=== PATIENT | male | born 1955 | race Caucasian/White ===

== ENCOUNTER 2020-02-09 08:55 | Emergency (ER) | payer MEDICARE, OTHER ==
--- OUTSIDE RECORDS SUMMARY | 2020-02-09 08:57 | XMS REPORT | Clinical Summary ---
:1955 Author Organization [facility] Address [address] [place] [id number] Care Team Providers Name Role Phone MD Priti Primary Care Provider Allergies Active Allergy Reactions Severity Noted Date Comments Nsaids (Non-Steroidal 09/12/2016 On ant icoagulation--xarelto Anti-Inflammatory Drug) Medications Medication Sig Dispensed Refills Start Date End Date Status traZODone (DESYREL) 150 0 09/08/2016 Active MG tablet traMADol (ULTRAM) 50 mg 0 09/04/2016 Active tablet sodium chloride 0.9% for 0 08/31/2016 Active IRRIGATION (NS) 0.9 % irrigation sertraline (ZOLOFT) 100 0 09/08/2016 Active MG tablet ranitidine (ZANTAC) 150 0 06/10/2016 Active MG tablet omeprazole (PriLOSEC) 20 0 06/24/2016 Active MG capsule lisinopril 0 06/24/2016 Active (PRINIVIL,ZESTRIL) 40 mg tablet HYDROcodone-acetaminophe 0 09/09/2016 Active n (NORCO) 10-325 mg per tablet gentamicin (GARAMYCIN) 0 08/28/2016 Active 0.1 % ointment gabapentin (NEURONTIN) 0 06/24/2016 Active 600 mg tablet fluticasone (FLONASE) 50 0 08/11/2016 Active mcg/actuation nasal spray diazePAM (VALIUM) 5 MG 0 09/08/2016 Active tablet amphetamine-dextroamphet 0 09/08/2016 Active amine XR (ADDERALL XR) 30 MG 24 hr capsule rivaroxaban (XARELTO) 10 Take 10 mg by 0 Active mg tablet mouth daily. atorvastatin (LIPITOR) Take 20 mg by 0 Active 20 MG tablet mouth daily. LYRICA 75 mg capsule 0 09/20/2016 Active Active Problems Problem Noted Date Deep vein thrombosis (DVT) of distal vein of left lowe r extremity 09/27/2016 Anxiety Arthritis Depression HL (hearing loss) Hypertension Hyperlipidemia Allergic Visual impairment Family History Medical History Relation Name Comments No Known Problems Brother Other Mother Complications fr om sx- No Known Problems Son Relation Name Status Comments Brother Alive Father Alive Mother (Age 77) Son Alive Social History Tobacco Use Types Packs/Day Years Used Date Current Every Day Smoker 0.5 Smokeless Tobacco: Never Used Alcohol Use Drinks/Week oz/Week Comments No Sex Assigned at Date Recorded Not on file Job Start Date Occupation Industry Not on file Not on file Not on file Travel History Travel Start Travel End No recent travel history available. Last Filed Vital Signs Not on file Plan of Treatment Health Maintenance Due Date Last Done Comments COLONOSCOPY SCREENING 01/14/2006 SHINGLES VACCINES (#1) 01/14/2006 INFLUENZA VACCINE 03/12/2020 Results Not on fileafter 02/08/2019 Insurance Payer Benefit Plan / Subscriber ID Effective Dates Phone Addre ss Type Group MEDICARE MEDICARE PART A xxxxxxxxxx 2013-Present [facility] [place] Medicare AND B AARP AARP SUPPLEMENT xxxxxxxxxxx 2016-Present Commercial Advance Directives For more information, please contact: [phone] Type Date Recorded Patient Supervisor [employer] Explanati on Advance Directives, Living Will and Medical Power of Crew Foreman
--- OUTSIDE RECORDS SUMMARY | 2020-02-09 08:59 | XMS REPORT | Continuity of Care Document ---
:1955 Author Organization [email or web address] Care Team Providers Name Role Phone [email or web address] Unavailable Un available Problems Problem Status Onset Classification Date Comments Sourc e Date Reported RESCHEDULE Active [facility] 019 [facility] PAINFUL HARDWARE Active [address] M99.40 Active 017 [facility] AMP 4 WEEKS F/U Active [facility] IRR 017 AMP NEW EVAL Active [facility] 017 LEFT LEG Active [facility] INFECTION [address] [place] [address] LEFT LEG Active [facility] ANGIOGRAM [address] [place] [address] M25.572 - PAIN Active OP ID IN LEFT ANKLE 017 [place] AND JOINTS CERVICAL SPINE [place] 016 [facility] Methicillin Active Problem 06/29/2019 Left ankle draina ge - 06/21/11 [facility] resistant 012 Problem added by Dis cern Expert. Medical Staphylococcus Brittaney william aureus VITALY, (organism) PAT Arthur, PAT [facility] Alteration in Active Problem 06/29/2019 [place] comfort: pain Medica l (finding) Center, [facility], PAT Arthur, PAT [facility] Culture positive Active Problem 06/29/2019 2012 left an kle [facility] for methicillin Medi haresh resistant [place], Staphylococcus VITALY, aureus (finding) KATHLEEN Penny [facility] Deep venous Active Problem 06/29/2019 LEFT LEG DVT [facility] [place] thrombosis STILL THERE AND Med ical (disorder) RIGHT LEG DVT Brittaney williamMH STILL THERE PER TIRMaggie ,DREW PT PAT [facility] Depressive Active Problem 06/29/2019 [facility] disorder Medical (disorder) Center, [facility], PAT Arthur,MH PAT Andrade,[facility] Deep venous Active Problem 06/29/2019 [facility] thrombosis of Medica l lower extremity Cent er, (disorder) [facility], PAT Arthur[facility] [place] At risk for Active Problem 06/29/2019 [facility] falls (finding) [facility], [facility], PAT Arthur,[facility] [place],[facility] Fracture of bone Resolved Problem 06/29/2019 left leg [facility] (disorder) [facility], [facility] [place] Fracture of Resolved Problem 06/29/2019 [facility] cervical spine Medic al (disorder) [place], [facility] [place] Hypertensive Active Problem 06/29/2019 [facility] disorder, Medical systemic Center, arterial [facility], (disorder) PTA Arthur,[facility] Impaired Active Problem 06/29/2019 [facility] mobility Medical (finding) Center, [facility], PAT Arthur,[facility] Neuropathy Active Problem 06/29/2019 [facility] (disorder) [facility] Pain (finding) Active Problem 06/29/2019 [facility], [facility], PAT Arthur,[facility] [place] Rheumatoid Active Problem 06/29/2019 [facility] arthritis Medical (disorder) Center,[facility] [place],[facility] Systemic lupus Active Problem 06/29/2019 ANTICOAGULANT [facility] erythematosus LUPUS Medica l (disorder) [place], [facility] Smoker (finding) Active Problem 06/29/2019 [facility], [facility], PAT Arthur,[facility] FRACTURE OF Active [facility] UNSPECIFIED PART Med ical OF BODY OF Center PAIN IN Active [facility] UNSPECIFIED LIMB CONNECTIVE Active TISSUE STENOSIS [place] OF NEURAL CAN Medications Medication Details Route Status Patient Ordering Order Source Instructions Provider Date ceFAZolin (ANES) Route: IV, Inactive [facility] Drug form: 2019 Medical INJ, ONCE, Center Stop date: 03/21/19 9:29:00 CDT midazolam (ANES) Route: IV, Inactive [facility] Drug form: 2019 Medical SOLN, ONCE, Center Stop date: 03/21/19 9:14:00 CDT Sodium Chloride Route: IV, Inactive [place] 0.9% IV (ANES) 100 Drug form: 2018 Me dical mL + INJ, Start Center dexmedetomidine date: 03/21/19 (ANES) 200 8:45:00 CDT, microgram Stop date: 03/21/19 9:45:00 CDT Lactated Ringers Route: IV, Inactive [facility] Injection IV (ANES) Total Volume: 2019 Medical 1000 mL 1,000, Start Center date: 03/21/19 8:35:00 CDT, Stop date: 03/21/19 9:35:00 CDT Acetaminophen 325 1 tab, PO, Active [place] MG / Oxycodone Q6H, 0 2018 Medical Hydrochloride 2.5 Refill(s) Cent er MG Oral Tablet [Percocet 2.5/325] ceFAZolin + sterile Notes: (Same No Longer 03/21 [place] water 20 mL As: Ancef, Active 2018 Medical Kefzol) Center MEDICATION WASTE Product Size: 1000 mg Product Wasted: ___ mg pregabalin 75 MG 75 mg = 1 cap, Active [facility] Oral Capsule PO, BID, # 60 2016 [Lyrica] cap, 5 Refill(s) Acetaminophen Notes: Do not Inactive [place] exceed 4 2017 Hospital gm/day. (Same as: Tylenol) Ondansetron Notes: (Same Inactive Monik y as: Zofran) 2017 Hospital MEDICATION WASTE Product Size: 4 mg Product Wasted: ___ mg Sodium Chloride 500 mL, Rate: Inactive H Lina 0.154 MEQ/ML 50 ml/hr, [address] [place] [address] Injectable Solution Infuse over: 10 hr, Route: IV, Dosing Weight 87.727 kg, Total Volume: 500, Start date: 08/25/16 9:44:00 CDT, Duration: 1 day, Stop date: 08/26/16 9:43:00 CDT BD Normal Saline Notes: (Same Inactive M H Lina Flush as: BD 2017 Hospital Posiflush) Sodium Chloride 25 mL, Route: Inactive M H Lina 0.9% IV IV, Start 2017 Hospital date: 08/25/16 6:00:00 CDT, Duration: 30 day, Stop date: 09/24/16 5:59:00 CDT, PRN Line Flush Sertraline 100 MG 100 mg = 1 Active [place] Oral Tablet tab, PO, 2017 Hospital [Zoloft] Bedtime, # 30 tab, 0 Refill(s) Ranitidine 150 MG 150 mg = 1 Active [place] Oral Tablet tab, PO, BID, 2017 Hospit al # 60 tab, 0 Refill(s) omeprazole 40 mg 40 mg = 1 cap, Active [place] oral delayed PO, Daily, # 2017 Hospit al release capsule 30 cap, 0 Refill(s) atorvastatin 10 mg 10 mg = 1 tab, Active [place] oral tablet PO, Bedtime, 0 2017 Hospi sonal Refill(s) rivaroxaban 20 MG 20 mg = 1 tab, Active [place] Oral Tablet PO, Daily, # 2017 Hospita l [Xarelto] 30 tab, 3 Refill(s) tamsulosin 0.4 mg 0.4 mg = 1 Active [place] oral capsule cap, PO, After 2016 Medi haresh Breakfast, # Center 30 cap, 0 Refill(s) Gentamicin Sulfate 1 appl, TOP, Active Rudy (RETIREMENT) 0.001 MG/MG Daily, X 7 2016 Med ical Topical Ointment day, # 15 gm, C enter 0 Refill(s) cyclobenzaprine 10 10 mg = 1 tab, Active [place] mg oral tablet PO, BID, PRN 2016 Medi haresh Spasm, X 14 Center day, # 28 tab, 0 Refill(s) [place] Enema Extra 133 mL, Route: Inactive Rudy [place], Drug Form: 2016 Medical ELIF, Dosing Center Weight 100.455, kg, ONCE, Start date: 08/03/15 18:40:00, Stop date: 08/03/15 18:40:00 Fleet Enema 12 years, Inactive [facility] Pediatric 2016 Medical Dosing Center Fleet Enema 12 years, Inactive [facility] Pediatric 2016 Medical Dosing Center Riteshitusisak DM Notes: No Longer [place] (dextromethorp Active 2016 Medical rodriguez-guaifenesi Center n 10-100mg/5ml 10 ml oral SOLN ud) (Same as: Robitussin DM) Lidocaine 40 MG/ML Notes: (Same No Longer [place] Topical Cream as: Xylocaine) Active 2016 Med ical Center Acetaminophen 300 Notes: Do not No Longer [place] MG / Codeine exceed 4gm/day Active 2015 Medi haresh Phosphate 60 MG of Center Oral Tablet acetaminophen. [Tylenol with (Same as: Codeine #4] Tylenol with Codeine # 4) Flexeril Notes: (Same No Longer [place] As: Flexeril) Active 2016 Medical Center heparin sodium, Notes: porcine No Longer [place] porcine 2500 UNT/ML heparin Active 2015 Medi haresh Injectable Solution Cent er Gentamicin Sulfate Notes: (Same No Longer [place] (RETIREMENT) 0.001 MG/MG as: Garamycin) Active 2016 Medical Topical Ointment Center Morphine Notes: (Same Inactive [place] as:MORPhine 2015 Medical Sulfate) Center Acetaminophen Notes: Do not No Longer [place] exceed 4 Active 2016 Medical gm/day. (Same Center as: Tylenol) Naproxen Notes: (Same No Longer [place] as: Naprosyn) Active 2016 Medical Take with Center food. Lisinopril Notes: (Same Inactive [place] as: Prinivil, 2016 Medical Zestril) Center Morphine Notes: (Same No Longer [place] as:MORPhine Active 2015 Medical Sulfate) Center Protonix Notes: Tablet No Longer [place] should not be Active 2016 Medical chewed or Center crushed. (Same as: Protonix) Ancef + Sodium Notes: (Same No Longer [place] Chloride 0.9% IV As: Ancef, Active 2016 Medi haresh 100 mL Kefzol) Center Cefazolin FOR IV SET ONLY MEDICATION WASTE Product Size: 1000 mg Product Wasted: ___ mg Ondansetron Notes: (Same [place] Longer [place] as: Zofran) Active 2015 Medical MEDICATION Center WASTE Product Size: 4 mg Product Wasted: _0__ mg Hydromorphone 0.5 mg, Route: Inactive [place] IVP, Q5Min, 2016 Medical Dosing Weight Center 104.545, kg, PRN Pain Score 7-10, Start date: 07/29/15 15:32:00, Duration: 4 doses or times, Stop date: Limited # of times Naloxone Notes: Same as No Longer Abhay as Narcan Active 2015 [facility] Center Flumazenil Notes: (Same No Longer Abhay as as: Romazicon) Active 2015 [facility] Center Oxycodone Notes: (Same Inactive [place] Hydrochloride 1 as: 2016 Medical MG/ML Oral Solution 'Roxicodone) [place] Labetalol 10 mg, 2 mL, No Longer [place] Route: IVP, Active 2015 Medical Drug form: Center INJ, Q5Min, Dosing Weight 104.545, kg, PRN Elevated BP, Start date: 07/29/15 15:32:00, Duration: 5 doses or times, Stop date: 07/30/15 0:00:00 omeprazole 20 mg 20 mg = 1 cap, No Longer [place] oral delayed PO, Daily, # Active 2016 Medica l release capsule 90 tab, 0 Center Refill(s) Acetaminophen 300 1 tab, PO, Active [place] MG / Codeine BID, PRN Pain 2016 Medic al Phosphate 30 MG Center Oral Tablet tramadol 50 mg = 1 tab, Active [place] hydrochloride 50 MG PO, Q4H, PRN 2016 Medical Oral Tablet Pain, # 120 Center tab, 0 Refill(s) clopidogrel 75 MG 75 mg = 1 tab, Active [place] Oral Tablet PO, Daily, # 2016 Medical [Plavix] 90 tab, 0 Center Refill(s) Acetaminophen 325 1 tab, PO, No Longer H [place] MG / Hydrocodone BID, PRN for Active 2015 [place] dical Bitartrate 5 MG pain, 0 Center Oral Tablet [[place] Refill(s) 5/325] gabapentin 600 MG 600 mg = 1 Active [facility] Oral Tablet tab, PO, TID, 2016 Medica l # 270 tab, 0 Center Refill(s) lisinopril 40 mg 40 mg = 1 tab, Active [facility] oral tablet PO, Daily, # 2016 Medical 90 tab, 0 Center Refill(s) Cefazolin 1 gm, Route: Inactive [facility] IVPB, ONCE, 2016 Medical Dosing Weight Center 104.545, kg, Start date: 07/29/15 11:16:00, Duration: 1 doses or times, Stop date: 07/29/15 11:16:00, Surgical Prophylaxis Only; For patients < 120 kg Prinivil Notes: (Same No Longer [facility] as: Prinivil, Active 2015 Medical Zestril) Center Microzide Notes: (Same Inactive [facility] as: Microzide) 2016 Medical With food. Center influenza virus Notes: (Same No Longer [facility] vaccine, as: Fluzone Active 2015 [facility] inactivated Quadrivalent) Center For 3 years of age and older (0.5 mL IM) Shake well before use Hydrochlorothiazide 1 tab, Route: Inactive 07/29 [place] 12.5 MG / PO, Drug Form: 2015 Medical Lisinopril 20 MG TAB, Dosing Xiang ter Oral Tablet Weight 104.545, kg, Daily, Start date: 07/29/15 9:00:00, Duration: 30 day, Stop date: 08/27/15 9:00:00 pneumococcal Notes: (Same No Longer [place] capsular as: Pneumovax Active 2015 Medical polysaccharide type 23) Cent er 1 vaccine / Refrigerate pneumococcal capsular polysaccharide type 10A vaccine / pneumococcal capsular polysaccharide type 11A vaccine / pneumococcal capsular polysaccharide type 12F vaccine / pneumococcal capsular polysacchar 24 HR 25 mg, Route: Inactive [facility] Desvenlafaxine 50 PO, Drug form: 2015 Medical MG Extended Release ERTAB, Daily, Center Tablet [Pristiq] Dosing Weight 104.545, kg, Start date: 07/29/15 9:00:00, Duration: 30 day, Stop date: 08/27/15 9:00:00 Abilify 5 mg, Route: Inactive [place] PO, Drug form: 2015 Medical TAB, Daily, Center Dosing Weight 104.545, kg, Start date: 07/29/15 9:00:00, Duration: 30 day, Stop date: 08/27/15 9:00:00 Docusate Notes: (Same No Longer [place] as: Colace) Active 2015 Medical (Do Not Crush) Center POLYETHYLENE GLYCOL Notes: No Longer [place] 3350 Dissolve in 8 Active 2015 Medical oz of water or Center juice. (Same as: Miralax) Prilosec 20 mg, Route: Inactive [place] PO, Drug form: 2015 Medical DRC, Daily, Center Dosing Weight 104.545, kg, Start date: 07/29/15 9:00:00, Duration: 30 day, Stop date: 08/27/15 9:00:00 Flomax Notes: (Same No Longer [place] As: Flomax) Active 2015 Medical "Do Not Crush" Center Cefazolin 2 gm, Route: Inactive [place] IVPB, ONCE, 2016 Medical Dosing Weight Center 104.545, kg, Start date: 07/29/15 8:37:00, Duration: 1 doses or times, Stop date: 07/29/15 8:37:00, Surgical Prophylaxis Only; For patients < 120 kg heparin 5,000 unit, No Longer [place] Route: SUB-Q, Active 2015 Medical Q8H, Dosing Center Weight 104.545, kg, Start date: 07/29/15 8:00:00, Duration: 30 day, Stop date: 08/28/15 0:00:00 Acetaminophen Notes: Infuse Inactive [place] over 15 2016 Medical minutes Do Center not exceed 4gm/day of acetaminophen MEDICATION WASTE Product Size: 1000 mg Product Wasted: ___ mg Tramadol Notes: Not to [place] Longer [place] exceed Active 2015 Medical 400mg/day. Center (Same As: Ultram) gabapentin Notes: (Same No Longer Abhay as as: Neurontin) Active 2016 Medical Center Diphenhydramine Notes: (Same No Longer H [place] as: Benadryl) Active 2016 Medical Center Trazodone Notes: (Same No Longer [place] As: Desyrel) Active 2016 Medical Center Ondansetron Notes: (Same [place] Longer [place] as: Zofran) Active 2016 Medical MEDICATION Center WASTE Product Size: 4 mg Product Wasted: ___ mg Oxycodone Notes: (Same No Longer [place] Hydrochloride 5 MG as: Active 2015 Medic al Oral Tablet Roxicodone) Center Morphine Notes: (Same Inactive [place] as:MORPhine 2015 Medical Sulfate) Center Methocarbamol Notes: (Same No Longer [place] as:Robaxin) Active 2015 Medical Center Bisacodyl Notes: (Same No Longer [place] As: Dulcolax, Active 2015 [facility] Bisco-Lax) Center Isolyte S PH 7.4 Notes: (Same No Longer [place] 1,000 mL as: Isolyte S Active 2015 Medical PH 7.4) Center Acetaminophen 325 1 tab, Route: Inactive [place] MG / Hydrocodone PO, Drug Form: 2016 Medical Bitartrate 10 MG TAB, Dosing Xiang ter Oral Tablet [[place] Weight 10/325] 104.545, kg, ONCE, STAT, Start date: 07/28/15 23:17:00, Stop date: 07/28/15 23:17:00 Ativan Notes: (Same Inactive [place] as: Ativan) 2016 Medical Center Isolyte S PH-7.4 1,000 mL, Inactive [place] (Bolus) IV Route: IV, 2016 Medical Dosing Weight Center 104.545, kg, ONCE, Start date: 07/28/15 18:21:00, Stop date: 07/28/15 18:21:00 Ondansetron 4 mg, Route: Inactive Abhay as IVP, Drug 2015 Medical form: INJ, Center ONCE, Dosing Weight 104.545, kg, Priority: STAT, Start date: 07/28/15 18:21:00, Stop date: 07/28/15 18:21:00 Morphine 8 mg, Route: Inactive [place] IVP, ONCE, 2015 Medical Dosing Weight Center 104.545, kg, Priority: STAT, Start date: 07/28/15 18:21:00, Stop date: 07/28/15 18:21:00 Ondansetron 4 mg, Route: Inactive 07/28[facility] Abhay as IVP, Drug 2015 Medical form: INJ, Center ONCE, Dosing Weight 104.545, kg, Priority: STAT, Start date: 07/28/15 16:50:00, Stop date: 07/28/15 16:50:00 Morphine 4 mg, Route: Inactive [place] IVP, ONCE, 2015 Medical Dosing Weight Center 104.545, kg, Priority: STAT, Start date: 07/28/15 16:50:00, Stop date: 07/28/15 16:50:00 Isolyte S PH-7.4 1,000 mL, Inactive [place] (Bolus) IV Route: IV, 2015 Medical Dosing Weight Center 104.545, kg, ONCE, Start date: 07/28/15 16:41:00, Stop date: 07/28/15 16:41:00 Allergies, Adverse Reactions, Alerts Substance Category Reaction Severity Reaction Status Date Comments S ource type Reported NKFA Assertion Food Active KATHLEEN Penny allergy [place] No Known Assertion Drug OP ID Medication allergy Shahrzad and Allergies Immunizations Immunization Date Site Status Last Comments Source Given Updated pneumococcal [facility] 23-valent vaccine 6 deltoid Wa dical [place], VITALY, OP ID J[place], PAT Andrade,[facility] influenza virus Left completed [facility] [place] vaccine, [address] [facility] VITALY, OP ID Jerson, PAT Andrade,[facility] Results Order Name Results Value Reference Date Interpretation Comments Susie rce Range ELECTROLYTE AGAP 12.8 10.0 - 08/25 Lina S 20.0 Hospital ELECTROLYTE Chloride Lvl 104 95 - 109 08/25 Monik y S /2016 Hospital ELECTROLYTE Potassium Lvl 3.8 3.5 - 5.1 08/25 [facility] ELECTROLYTE Creatinine 0.92 0.50 - 08/25 Lina S Lvl 1.40 /2016 Hospital ELECTROLYTE Sodium Lvl 141 135 - 145 08/25 Hospital ELECTROLYTE Calcium Lvl 8.5 8.5 - 10.5 08/25 Hospital ELECTROLYTE CO2 28 24 - 32 08/25 Hospital ELECTROLYTE BUN 10 7 - 22 08/25 Hospital ELECTROLYTE Glucose Lvl 103 70 - 99 08/25 Hospital ELECTROLYTE eGFR 90 08/25 [facility] Comment: The Hospital eGFR is calculated using the CKD-EPI formula. In most young, healthy individuals the eGFR will be >90 mL/min/1.73m2 . The eGFR declines with age. An eGFR of 60-89 may be normal in some populations, particularly the elderly, for whom the CKD-EPI formula has not been extensively validated. Use of the eGFR is not recommended in the following populations:< br/>
Marcelina viduals with unstable creatinine concentration s, including patients and those with serious co-morbid conditions.<b r/>
Patie nts with extremes in muscle mass or diet.

The data above are obtained from the National Kidney Disease Education Program (NKDEP) which additionally recommends that when the eGFR is used in patients with extremes of body mass index for purposes of drug dosing, the eGFR should be multiplied by the estimated BMI. HEMATOLOGY Segs-Bands # 9.9 1.5 - 8.1 08/25 [facility] HEMATOLOGY Lymphocytes 6.9 20.0 - 08/25 Lina 40.0 [facility] HEMATOLOGY Segs 89.3 45.0 - 08/25 Lina 75.0 [facility] HEMATOLOGY Lymphocytes # 0.8 1.0 - 5.5 08/25 [facility] HEMATOLOGY Monocytes # 0.4 0.0 - 0.8 08/25 [facility] HEMATOLOGY Monocytes 3.3 2.0 - 12.0 08/25 Hospital HEMATOLOGY Eosinophils 0.1 0.0 - 4.0 08/25 [facility] HEMATOLOGY Basophils 0.4 0.0 - 1.0 08/25 Hospital HEMATOLOGY PT 14.8 12.0 - 08/25 MH Lina 14.7 /2016 Hospital HEMATOLOGY INR 1.14 0.85 - 08/25 Lina 1.17 Hospital HEMATOLOGY Platelet 174 133 - 450 08/25 Lina [facility] HEMATOLOGY RDW 16.1 11.5 - 08/25 Lina 14.5 /2016 Hospital HEMATOLOGY WBC 11.1 3.7 - 10.4 08/25 [facility] HEMATOLOGY MCHC 33.4 32.0 - 08/25 [place] 36.0 /2016 Hospital HEMATOLOGY MPV 7.2 7.4 - 10.4 08/25 Lina [facility] HEMATOLOGY Hgb 12.8 14.0 - 08/25 L[place] 18.0 /2016 Hospital HEMATOLOGY RBC 4.68 4.70 - 08/25 [facility] 6.10 Hospital HEMATOLOGY Hct 38.3 42.0 - 08/25 [facility] 54.0 Hospital HEMATOLOGY MCV 82.0 80.0 - 08/25 [facility] 94.0 Hospital HEMATOLOGY MCH 27.4 27.0 - 08/25 Lina 31.0 [facility] CHEM PANEL eGFR 100 08/01 Result Comment: The Medical eGFR is Center calculated using the CKD-EPI formula. In most young, healthy individuals the eGFR will be >90 mL/min/1.73m2 . The eGFR declines with age. An eGFR of 60-89 may be normal in some populations, particularly the elderly, for whom the CKD-EPI formula has not been extensively validated. Use of the eGFR is not recommended in the following populations:< br/>
Marcelina viduals with unstable creatinine concentration s, including patients and those with serious co-morbid conditions.<b r/>
Patie nts with extremes in muscle mass or diet.

The data above are obtained from the National Kidney Disease Education Program (NKDEP) which additionally recommends that when the eGFR is used in patients with extremes of body mass index for purposes of drug dosing, the eGFR should be multiplied by the estimated BMI. CHEM PANEL Calcium Lvl 9.3 8.5 - 10.5 08/01 [facility] CHEM PANEL BUN 17 7 - 22 08/01 [facility] CHEM PANEL Glucose Lvl 100 70 - 99 08/01 [facility] CHEM PANEL Creatinine 0.76 0.50 - 08/01 [place] Lvl 1.40 /2015 [facility] CHEM PANEL CO2 25 24 - 32 08/01 [facility] CHEM PANEL Potassium Lvl 4.0 3.5 - 5.1 08/01 [facility] CHEM PANEL Chloride Lvl 103 95 - 109 08/01 [facility] CHEM PANEL Sodium Lvl 139 135 - 145 08/01 [facility] CHEM PANEL AGAP 15.0 10.0 - 08/01 20.0 [facility] HEMATOLOGY Basophils 0.4 0.0 - 1.0 08/01 [facility] HEMATOLOGY Eosinophils 0.3 0.0 - 4.0 08/01 [facility] HEMATOLOGY Monocytes 12.1 2.0 - 12.0 08/01 [facility] HEMATOLOGY Lymphocytes 12.2 20.0 - 08/01 [place] 40.0 [facility] HEMATOLOGY Segs 75.0 45.0 - 08/01 [place] 75.0 [facility] HEMATOLOGY Monocytes # 1.4 0.0 - 0.8 08/01 [facility] HEMATOLOGY Lymphocytes # 1.4 1.0 - 5.5 08/01 [facility] HEMATOLOGY Segs-Bands # 8.6 1.5 - 8.1 08/01 [facility] HEMATOLOGY MCH 29.3 27.0 - 08/01 [place] 31.0 Medical [place] HEMATOLOGY MCHC 33.7 32.0 - 08/01 [place] 36.0 [facility] HEMATOLOGY MCV 87.0 80.0 - 08/01 [place] 94.0 [facility] HEMATOLOGY Hgb 12.4 14.0 - 08/01 [place] 18.0 [facility] Center HEMATOLOGY Hct 36.7 42.0 - 08/01 [place] 54.0 [facility] Center HEMATOLOGY WBC 11.5 3.7 - 10.4 08/01 [facility] HEMATOLOGY RBC 4.23 4.70 - 08/01 [place] 6.10 [facility] HEMATOLOGY MPV 9.0 7.4 - 10.4 08/01 [facility] HEMATOLOGY RDW 16.9 11.5 - 08/01 [place] 14.5 /2016 [facility] HEMATOLOGY Platelet 154 133 - 450 08/01 [facility] HEMATOLOGY Segs-Bands # 10.2 1.5 - 8.1 07/30 Abhay as /2015 [facility] HEMATOLOGY Lymphocytes # 0.6 1.0 - 5.5 07/30 [place] /2015 [facility] HEMATOLOGY Monocytes # 1.3 0.0 - 0.8 07/30 [place] /2015 [facility] HEMATOLOGY Basophils 0.3 0.0 - 1.0 07/30 [facility] HEMATOLOGY Monocytes 10.8 2.0 - 12.0 07/30 [facility] HEMATOLOGY Segs 84.2 45.0 - 07/30 [place] 75.0 /2015 [facility] HEMATOLOGY Lymphocytes 4.7 20.0 - 07/30 [place] 40.0 /2015 [facility] HEMATOLOGY MCH 29.1 27.0 - 07/30 [place] 31.0 [facility] HEMATOLOGY Hct 41.6 42.0 - 07/30 [place] 54.0 /2015 [facility] [facility] HEMATOLOGY Hgb 14.0 14.0 - 07/30 [place] 18.0 /2015 [facility] HEMATOLOGY MCV 86.2 80.0 - 07/30 [place] 94.0 [facility] HEMATOLOGY RBC 4.82 4.70 - 07/30 [place] 6.10 /2015 [facility] HEMATOLOGY WBC 12.2 3.7 - 10.4 07/30 [facility] HEMATOLOGY MPV 8.4 7.4 - 10.4 07/30 [facility] HEMATOLOGY MCHC 33.7 32.0 - 07/30 [place] 36.0 /2015 [facility] HEMATOLOGY Platelet 168 133 - 450 07/30 [facility] HEMATOLOGY RDW 17.1 11.5 - 07/30 [place] 14.5 /2015 [facility] HEMATOLOGY PT 13.6 12.0 - 07/29 [place] 14.7 [facility] HEMATOLOGY INR 1.01 0.85 - 07/29 [place] 1. [facility] BLOOD BANK Antibody Scrn Negative 07/29 [facility] as RESULTS (07/29/15 3:36 AM) /2015 [facility] BLOOD BANK ABO/Rh O NEG 07/29 [place] RESULTS /2015 [facility] CHEM PANEL Magnesium Lvl 1.9 1.8 - 2.4 07/29 [facility] CHEM PANEL Phosphorus 3.5 2.5 - 4.5 07/29 [facility] CHEM PANEL eGFR 97 07/29 Result Comment: The Medical eGFR is Center calculated using the CKD-EPI formula. In most young, healthy individuals the eGFR will be >90 mL/min/1.73m2 . The eGFR declines with age. An eGFR of 60-89 may be normal in some populations, particularly the elderly, for whom the CKD-EPI formula has not been extensively validated. Use of the eGFR is not recommended in the following populations:< br/>
Marcelina viduals with unstable creatinine concentration s, including patients and those with serious co-morbid conditions.<b r/>
Patie nts with extremes in muscle mass or diet.

The data above are obtained from the National Kidney Disease Education Program (NKDEP) which additionally recommends that when the eGFR is used in patients with extremes of body mass index for purposes of drug dosing, the eGFR should be multiplied by the estimated BMI. CHEM PANEL AGAP 11.2 10.0 - 07/29 [facility] 20.0 [facility] CHEM PANEL Chloride Lvl 104 95 - 109 07/29 [facility] CHEM PANEL CO2 26 24 - 32 07/29 [facility]2015 [facility] CHEM PANEL Calcium Lvl 9.0 8.5 - 10.5 07/29 [facility] CHEM PANEL Glucose Lvl 80 70 - 99 07/29 [facility] CHEM PANEL BUN 13 7 - 22 07/29 [facility] CHEM PANEL Potassium Lvl 4.2 3.5 - 5.1 07/29 [facility] CHEM PANEL Sodium Lvl 137 135 - 145 07/29 [facility]2015 [facility] CHEM PANEL Creatinine 0.82 0.50 - 07/29 [facility] Lvl 1.40 [facility] HEMATOLOGY Eosinophils # 0.1 0.0 - 0.5 07/29 [facility] HEMATOLOGY Monocytes # 0.7 0.0 - 0.8 07/29 [facility] HEMATOLOGY Lymphocytes # 1.9 1.0 - 5.5 07/29 [facility] HEMATOLOGY Eosinophils 0.9 0.0 - 4.0 07[place] [facility] HEMATOLOGY Monocytes 8.4 2.0 - 12.0 07/29 [place] [facility] HEMATOLOGY Lymphocytes 22.9 20.0 - 07/29 [place] 40.0 /2015 [facility] HEMATOLOGY Segs 66.7 45.0 - 07/29 [place] 75.0 /2015 [facility] HEMATOLOGY Basophils # 0.1 0.0 - 0.2 07/29 [place] [facility] HEMATOLOGY Segs-Bands # 5.4 1.5 - 8.1 07/29 [facility] /2015 [facility] HEMATOLOGY Basophils 1.1 0.0 - 1.0 07/29 /2015 [facility] HEMATOLOGY MCV 87.4 80.0 - 07/29 [place] 94.0 /2015 [facility] HEMATOLOGY Hct 45.4 42.0 - 07/29 [place] 54.0 /2015 [facility] HEMATOLOGY MCH 29.2 27.0 - 07/29 [place] 31.0 /2015 [facility] HEMATOLOGY MCHC 33.4 32.0 - 07/29 [place] 36.0 /2015 [facility] HEMATOLOGY RBC 5.20 4.70 - 07/29 [place] 6.10 /2015 [facility] HEMATOLOGY Hgb 15.2 14.0 - 07/29 [place] 18.0 /2015 [facility] HEMATOLOGY Platelet 199 133 - 450 07/29 [facility] HEMATOLOGY RDW 17.5 11.5 - 07/29 [place] 14.5 /2015 [facility] HEMATOLOGY MPV 8.6 7.4 - 10.4 07/29 [facility] HEMATOLOGY WBC 8.1 3.7 - 10.4 07/29 [place] [facility] URINE AND UA Leuk Est Negative Negative 07/29 [facility] STOOL (07/28/15 7:32 PM) /2015 [facility] URINE AND UA Nitrite Negative Negative 07/29 [facility] STOOL (07/28/15 7:32 PM) /2015 [facility] URINE AND UA 0.2 0.1 - 1.0 07/29 [facility] STOOL Urobilinogen /2015 [facility] URINE AND UA Blood Negative Negative 07/29 [facility] STOOL (07/28/15 7:32 PM) /2015 [facility] URINE AND UA Bili Negative Negative 07/29 [facility] STOOL *NA* /2015 Medical (2/16/16 7:32 PM) [place] URINE AND UA Ketones Negative Negative 07/29 [facility] STOOL *NA* [facility] (07/28/15 7:32 PM) [place] URINE AND UA Protein Negative Negative 07/29 [facility] (07/28/15 7:32 PM) [facility] URINE AND UA Glucose Negative Negative 07/29 [facility] (07/28/15 7:32 PM) [facility] URINE AND UA Color Yellow Yellow 07/29 [facility] *NA* /2015 [facility] (07/28/15 7:32 PM) [place] URINE AND UA Spec Grav 1.023 <=1.030 07/29 [facility] /2015 [facility] URINE AND UA Turbidity Clear Clear 07/29 [facility] (07/28/15 7:32 PM) [facility] URINE AND UA pH 5.5 5.0 - 8.0 07/29 [facility] /2015 [facility] URINE AND UA Bacteria None Seen None Seen 07/29 [facility] STOOL (07/28/15 7:32 PM) [facility] URINE AND UA Mucus None Seen None Seen 07/29 [facility] (07/28/15 7:32 PM) [facility] URINE AND UA WBC None Seen None Seen 07/29 [facility] (07/28/15 7:32 PM) [facility] URINE AND UA RBC None Seen 0 - 2 07/29 [facility] (07/28/15 7:32 PM) [facility] URINE AND UA Sq Epi None Seen Few 07/29 [facility] (07/28/15 7:32 PM) [facility] CHEM PANEL eGFR 82 07/28 [facility] Comment: The Medical eGFR is Center calculated using the CKD-EPI formula. In most young, healthy individuals the eGFR will be >90 mL/min/1.73m2 . The eGFR declines with age. An eGFR of 60-89 may be normal in some populations, particularly the elderly, for whom the CKD-EPI formula has not been extensively validated. Use of the eGFR is not recommended in the following populations:< br/>
Marcelina viduals with unstable creatinine concentration s, including patients and those with serious co-morbid conditions.<b r/>
Patie nts with extremes in muscle mass or diet.

The data above are obtained from the National Kidney Disease Education Program (NKDEP) which additionally recommends that when the eGFR is used in patients with extremes of body mass index for purposes of drug dosing, the eGFR should be multiplied by the estimated BMI. CHEM PANEL Calcium Lvl 9.6 8.5 - 10.5 07/28 [facility] CHEM PANEL Sodium Lvl 137 135 - 145 07/28 [facility] CHEM PANEL Potassium Lvl 4.2 3.5 - 5.1 07/28 [facility] CHEM PANEL Chloride Lvl 103 95 - 109 07/28 [facility] CHEM PANEL CO2 29 24 - 32 07/28 [facility]2015 [facility] CHEM PANEL BUN 18 7 - 22 07/28 [facility]2015 [facility] CHEM PANEL Glucose Lvl 86 70 - 99 07/28 [facility]2015 [facility] CHEM PANEL Creatinine 1.00 0.50 - 07/28 [facility] Lvl 1.40 [facility] CHEM PANEL AGAP 9.2 10.0 - 07/28 [facility] 20.0 [facility] HEMATOLOGY R-time 0.7 0.4 - 0.7 07/28 [facility] HEMATOLOGY [place] 0.6 07/28 [facility]2015 [facility] HEMATOLOGY K-time 1.1 0.6 - 2.3 07/[address] HEMATOLOGY Rapid TEG Cit[place] Whole Blood 07/28 [facility] Sample Type (07/28/15 5:00 PM) /2015 [facility] HEMATOLOGY Angle 77 64 - 80 07/28 [facility] HEMATOLOGY ACT (TEG) 113 86 - 118 07/28 [facility] HEMATOLOGY Max Amp 73 52 - 71 07/28 [facility]2015 [facility] HEMATOLOGY G-value 13.3 5.0 - 11.6 07/28 [facility]2015 [facility] HEMATOLOGY Estimated % 0.1 0.0 - 7.5 07/28 [facility] HEMATOLOGY Basophils # 0.1 0.0 - 0.2 07/28 [facility] HEMATOLOGY Eosinophils # 0.1 0.0 - 0.5 07/28 [facility] HEMATOLOGY Eosinophils 1.6 0.0 - 4.0 07/28 [place] [facility] Reports No Data Provided for This Section Diagnostic Reports Report Value Date Source Spine cervical wo Radiation Dose CTDIVOL = 0 (mGy): DLP = 421.52 (mGy-cm) 06/27/[address] PROCEDURE INFORMATION: Exam: CT Cervical Spine Without Contrast Exam date and time: 06/27/2019 11:48 AM Age: 64 years old Clinical indication: Cervica l disc disorder with radiculopathy, cervicothoracic region; Additional info: /m50.13 cervical disc d isorder with radiculopathy, cervicothoracic region TECHNIQUE: Imaging protocol: Computed tomography images of the cervical spine without contrast. Total DLP: 421.52 mGy-cm Radiation optimization: All CT scans at this facility use at least one of these dose optimization techniques: automated exposure control; mA and/or kV adjustment per patient size (includes targeted e xams where dose is matched to clinical indication); or iterative reconstructio n. COMPARISON: SPINE CERVICAL WO CONTRAST CT 02/14/2017 and 07/28 FINDINGS: Vertebrae: No acute fracture or aggressive osseo us lesion. Chronic faint fracture through the right articular pillar at C 7 (series 300, image 29). Laminectomy from C3 through C6 and posterior fus ion using lateral mass/transpedicular screws and parallel rods at C3, C4, C5, C6, and T1. The hardware is in satisfactory position, without si gns of loosening or fracture. Minimal 2.5 mm anterolisthesis of C6 on C7, unch anged. Overall unchanged alignment. Spinal canal: No spinal canal stenosis. Soft tissues: No prevertebral or paravertebral s oft tissue swelling. No fluid collection in eminectomy defect. Lungs: Lung apices are clear. IMPRESSION: No acute findings or change in the appearance of the cervical spine compared to the CT performed on 02/14/2017. Laminectomy from C3 through C6 and and p osterior fusion from C3 through T1, as above. Rivas Moise MD On 06/27/2019 15:38:47; VR-STEVEN [id number] Spine cervical 2 or 3 PROCEDURE INFORMATION: 06/27/2019 DREW Andrade view DX Exam: XR Cervical Spine, 4 or 5 Views Exam date and time: 06/27/2019 10:55 AM Age: 64 years old Clinical indication: Cervica l disc disorder with radiculopathy, cervicothoracic region; Additional info: /m50.13 cervical disc d isorder with radiculopathy TECHNIQUE: Imaging protocol: XR of the cervical spine, 4 or 5 views. Other technique: AP Lateral and flexion extensio n views COMPARISON: CR SPINE CERVICAL SERIES DX 02/10/2017 12:45 PM SPINE CERVICAL WO CONTRAST CT 06/27/2019 11:48:10 AM FINDINGS: Vertebrae: Postsurgical beach ges are present relating to posterior decompression and fusion of C3-T1 with parallel of rods and la teral mass screws. Hardware appears intact without evidence of failu re or loosening. Cervical alignment is within normal limits. No significant spondylolis thesis or abnormal motion between flexion and extension. Vertebral body he ights are maintained. Soft tissues: Unremarkable. Notes: If there is further concern or neurologic al abnormalities on clinical exam, MRI or CT of the cervi haresh spine may be performed for complete assessment. IMPRESSION: Postsurgical changes in the cervical spine without significant interval change. Harry Barney MD On 06/27/2019 17:03:35; [id number] Brain wo contrast MRI PROCEDURE INFORMATION: 04/15/2019 PAT Andrade Exam: MR Head Without Contrast Exam date and time: 04/15/2019 6:44 PM Clinical history: 64 years old, male; Paresthesi a of skin; Additional info: R20.2 paresthesia of skin/r20.2 paresthesia of s kin TECHNIQUE: Imaging protocol: MR of the head without contras t. 3D rendering: MIP reconstructed images were cresara daly and reviewed. COMPARISON: No relevant prior studies available. FINDINGS: Brain: The brain parenchyma is unremarkable for age.Mild generalized volume loss. Mild T2 signal abnormalities in the suprat entorial white matter suggestive of chronic small vessel ischemic changes. The sow white interfaces are maintained. There is no acute infarct, hemor rhage, mass, edema, midline shift or herniation. The posterior fossa and mid line structures are unremarkable. Incidentally noted small left fro ntal developmental venous angioma, normal variant. Ventricles: No ventriculomegaly. Bones/joints: Partially visualized surgical beach ges in the cervical spine. Soft tissues: Unremarkable. Sinuses: Normal as visualized. Mastoid air cells: Normal as visualized. No mast oid effusion. Orbits: Unremarkable. Other vasculature: Central intracranial flow voi ds are maintained. IMPRESSION: No acute intracranial process. Mild age-related volume loss and chronic small vessel ischemic changes. Partially visua lized surgical changes in the cervical spine. Coleen Howard MD On 04/16/2019 09:50 :47; [id number] Spine cervical wo Patient Name: PRICE SANDHU 09/24/2018 PAT [place] contrast MRI : 1955; Age: 63 years y/o Male MR: [id number] Study: Spine cervical wo contrast MRI 09/24/2018 9:56 CDT Ordering Physician: Fabio Dickerson MD Clinical Indication: - G95.9 Disease of spina l cord, unspecified; Comparison: 02/10/2017 and 07/28/2015 TECHNIQUE: Multiplanar nonco ntrast magnetic resonance imaging of the cervical spine is performed. FINDINGS: The alignment is stable comp ared to prior study from 2017. There is 2 mm retrolisthesis at C3-C4 and 4 mm retrolisthesis at C6-C7. There has been posterior decompression and posterior fusion from C3 to C6. No recurrent spinal benito l stenosis. At C6-C7, there is moderate facet arthrosis and 4 mm anterolisthesis. There may be moderate foraminal stenosis although assessment is limited due to artifacts. At the other levels, the foramina appear unremarka ble. There is stable signal abnor mality in the cervical cord at C3-C4 level with mild cord thinning, this is suggestive of myelomalacia. Mild degenerative changes in the visualized thor acic spine. The paravertebral soft tissues are unremarkable. IMPRESSION: Status post C3-C6 posterior decompression and posterior fusion with maintained alignment and no recurrent canal stenosis. Stable grade 1 anterolisthes is at C6-C7 with suspected mild to moderate foraminal stenosis. Stable myelomalacia at C3-C4. 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 NES638.25mGycm. ADDITIONAL INFORMATION and CT DLP: 344.25 mGy-cm . COMPARISON: MRI cervical spine of 02/10/2017. TECHNIQUE: Volumetric CT ac quisition of the cervical spine without contrast. Axial, sagittal and coronal reconstructions. IV contrast: None. FINDINGS: No definite acute fracture i s present. Prevertebral soft tissues are within normal limits. The odontoid and lateral masses are grossly anatomic. Postoperative laminectomies and posterior cervical spinal fusion are present from about C3-T1 causing streak artifact. Mild grade 1 about 2.1 mm anterolisthesis of C6 on C7. No gross significant cervica l spinal stenosis detected. Please refer to recent MRI cervical spine report for better evaluation and complete details. Enlarged heterogeneous thyro id with left lobe calcification. Emphysematous changes are present within the apices with biapical pleural thickening and subjacent pleural parenchymal scarring. IMPRESSION: 1. No acute cervical fracture detected. 2. Postoperative laminectomi es and posterior cervical spinal fusion are present from about C3-T1 causing streak artifact. Mild grade 1 about 2.1 mm anterolisthesis of C6 on C7. No gross significant cerv ical spinal stenosis detecte d. Please refer to recent MRI cervical spine report for better evaluation and complete details. 3. Enlarged heterogeneous thyroid with left lobe calcification. 4. Emphysematous changes are present within the apices with biapical pleural thickening and subjacent pleural parenchymal scarring. SL: [id number] Spine cervical series Patient Name: PRICE SANDHU 2016 DREW Andrade DX : 1955; Age: 62 years Male MR: [id number] Study: Spine cervical series DX 02/10/2017 11:56 A M CDT CLINICAL INDICATION: - Conn ective tissue stenosis of neural canal of head region COMPARISON: Cervical spine radiograph on 016 FINDINGS: Views and laterality: Cervical spine 5 views Status post posterior fusion of C3-T1. The hardware appears in unchanged alignment without significant loosening. No acute fracture. Mild grade 1 retrolisthesis of C3 on C4 and C4 on C5. No significant change in alignment on the f lexion or extension views. Mild disc space narrowing and posterior disc osteophytes from C3 through C7. No prevertebral soft tissue thickening. The visualized apices are clear. IMPRESSION: Status post posterior fusion of C3-T1. SL: [id number] Spine Thoracic wo Clinical Indication: Spinal canal stenosis 06/2016 PAT Andrade contrast MRI Comparison: None. TECHNIQUE: Multiplanar T1, T 2, STIR weighted noncontrast MRI of the thoracic spine is performed on the 1.5 Francoise magnet. Full and complete MRI thoracic spine without gadolinium contrast exam was performed. FINDINGS: ALIGNMENT AND GENERAL SURVEY : There is normal alignment of the thoracic spine. The bone marrow is normal for the patient's age. There are no fractures or compression deformities. SPINAL CORD: The thoracic sp ine spinal cord is normal in size and signal. The CSF space is unremarkable. The conus medullaris ends at the L1 level. DISK SPACES: There is disc d esiccation at multiple levels.. A small disc bulge is noted at T6-T7 without significant spinal canal stenosis or foraminal narrowing. No significant central or foraminal stenosis. IMPRESSION: No fracture or subluxation. No significant spinal canal stenosis or foraminal narrowing. No evidence of cord compression. SL: [id number] Spine cervical wo Clinical Indication: Spinal canal stenosis 06/2016 [facility] [place] contrast MRI Comparison: Magnetic resonance imaging dated TECHNIQUE: Multiplanar T1, T 2, and STIR weighted MRI of the cervical spine is performed. Full and complete MRI cervical spine without gadolinium contrast exam was performed. Imaging was performed. FINDINGS: There is cervical lordosis. The vertebral body heights are maintained. There is grade 1 anterolisthesis of C6/C7. The patient is status post laminectomy at C3-C6. The bone marrow signal is wi thin normal limits. There is no prevertebral soft tissue swelling or signal abnormality. The bilateral vertebral artery flow voids are visualized. The right vertebral artery is hypoplastic. The cervicomedullary junctio n is unremarkable. There is a 4 mm focus of T2 hyperintensity in the cord at C3-C4 level which may represent residual myelopathy. At C2-C3 there is a mild dis c bulge without significant spinal canal stenosis or foraminal narrowing. At C3-C4 there is a disc ost eophyte complex without significant spinal canal stenosis. There is mild bilateral neural foraminal narrowing. At C4-C5, there is no disc h erniation, spinal canal stenosis or foraminal narrowing. At C5-C6 there is no disc he rniation, spinal canal stenosis or foraminal narrowing. At C6-C7 there is a mild dis c bulge without significant spinal canal stenosis. There is mild bilateral neural foraminal narrowing. At C7-T1 there is no signifi cant disc herniation, spinal canal stenosis or foraminal narrowing. Impression: No significant s mahogany canal stenosis in the cervical spine. No evidence of cord compression. Small focal area of T2 hyperintensity in the cord at C3-C4 level may represent residual myelopathy. Postsurgical changes at C3-C6. Grade 1 anterolisthesis of C6/C7. SL: [id number] Knee 1-2 Views EXAM: XR LEFT KNEE ONE VIEW 10/13/2016 [facility] unilateral DX DATE: 10/13/2016 10:43 AM CDT Cent er INDICATION: POST OP - ALIGNMENT COMPARISON: 08/05/2011 and 08/05/2016 TECHNIQUE: AP and lateral radiographs of the kn ee FINDINGS: Single intraopera tive radiograph demonstrates interval resection through the proximal tibial and fibular shafts with interconnecting single cortical screw and bone harvest graft at the resection margins. A drain and skin mayra are in place about the operative bed with expected soft tissue swelling and small amounts of subcutaneous emphysema. Degenerative changes of the knee and tibiofibula r joints are noted. IMPRESSION: Single intraope rative radiograph demonstrating expected appearances following resection through the proximal left tibial/fibular shafts reinforced with bone graft and cortical screw. Ankle w/wo contrast EXAM: MR LEFT ANKLE WITH INTRAVENOUS CONTRAS T 08/05/2016 [facility] MRI DATE: 08/05/2016 4:09 PM [employer] INDICATION: Pain, Trauma COMPARISON: 08/05/2011 TECHNIQUE: Multiplanar multi sequence imaging of the ankle with and without contrast. IV contrast: 18 mL of Dotarem. FINDINGS: Ligaments: Lateral: AITFL and PITFL: The anterio r inferior tibiofibular and posterior inferior tibiofibular ligaments are intact. ATFL: The anterior talofibular ligament is intac t. CFL: The calcaneofibular ligament is intact. PTFL: The posterior talofibular ligament is inta ct. Medial: Deltoid: The superficial and deep deltoid complex ligaments are within normal limits. Tendons: Anterior: The anterior tibia lis, extensor hallucis longus and extensor digitorum longus are intact. Medial: The posterior tibial is, flexor digitorum longus and flexor hallucis longus are intact. Lateral: The peroneus longus and brevis are inta ct. Achilles: Intact. Plantar fascia: Within normal limits Muscles: No signal abnormality in the muscles. Cartilage: No focal defect. Bone: No suspicious marrow signal seen to suggest acute osteomyelitis. Metallic artifact from the internally fixated distal tibial and fibular fractures. Bony synostosis of the distal tibia and fibula. No acute fracture identified. Soft tissues: Well-perfused soft tissue graft seen anterior to the distal tibia. There is an approximately 1.6 cm soft tissue ulcer seen superficial to the lateral malleolus (series 16 image 44). No fo haresh fluid collections or abn ormal soft tissue enhancement. Diffuse nonspecific mild subcutaneous edema. No abnormality of the visualized neurovascular structures. Tarsal tunnel and sinus tarsi within normal limits. IMPRESSION: 1. 1.6 cm lateral malleolus soft tissue ulceration without underlying osteomyelitis. 2. No abnormal enhancement or focal fluid collec tions. Spine thoracic 3 views EXAM: XR CERVICAL SPINE 4 VIEWS 6 [facility] [place] [facility] EXAM: XR THORACIC SPINE 2 VIEWS Center DATE: 07/29/2015 2:02 PM [employer] INDICATION: Pain Post Trauma COMPARISON: CT of the cervical and thoracic spin e 07/28/2015 TECHNIQUE: AP, lateral, ope n-mouth odontoid, and swimmer's views of the cervical spine. AP and lateral views of the thoracic spine. DISCUSSION: Cervical spine: There has be en interval placement of posterior fusion rods from C3 to T1, with lateral mass screws at all levels except C7. There is no perihardware lucency or evidence of failure. The f ractures described on CT are not evident on this study. Degenerative changes including formation of small anterior and posterior vertebral body osteophytes at multiple levels and mild disc height loss a t C3-C4 are noted. No prever tebral or paraspinous soft tissue abnormality is identified. Thoracic spine: Minimal thor acolumbar dextroscoliosis, possibly positional in nature. The vertebral body heights and disc spaces are overall preserved. No acute fracture is identified, although there is a mild compression deformit y of the L2 superior endplate which appears chronic. Surgical clips projecting ov er the upper thoracic spine correlate with right axillary clips on a comparison chest radiograph. An IVC filter is noted. IMPRESSION: 1. Interval posterior spina l fusion from C3 to T1 without evidence of complication. 2. The previously identifie d fractures are not well demonstrated radiographically. Spine cervical 2 or 3 EXAM: XR CERVICAL SPINE 4 VIEWS 07/30/2015 [facility] Medical view DX EXAM: XR THORACIC SPINE 2 VIEWS Center DATE: 07/29/2015 2:02 PM [employer] INDICATION: Pain Post Trauma COMPARISON: CT of the cervical and thoracic spin e 07/28/2015 TECHNIQUE: AP, lateral, ope n-mouth odontoid, and swimmer's views of the cervical spine. AP and lateral views of the thoracic spine. DISCUSSION: Cervical spine: There has be en interval placement of posterior fusion rods from C3 to T1, with lateral mass screws at all levels except C7. There is no perihardware lucency or evidence of failure. The f ractures described on CT are not evident on this study. Degenerative changes including formation of small anterior and posterior vertebral body osteophytes at multiple levels and mild disc height loss a t C3-C4 are noted. No prever tebral or paraspinous soft tissue abnormality is identified. Thoracic spine: Minimal thor acolumbar dextroscoliosis, possibly positional in nature. The vertebral body heights and disc spaces are overall preserved. No acute fracture is identified, although there is a mild compression deformit y of the L2 superior endplate which appears chronic. Surgical clips projecting ov er the upper thoracic spine correlate with right axillary clips on a comparison chest radiograph. An IVC filter is noted. IMPRESSION: 1. Interval posterior spina l fusion from C3 to T1 without evidence of complication. 2. The previously identifie d fractures are not well demonstrated radiographically. Chest 1view DX EXAM: XR CHEST 1 VIEW 07/29/2015 [facility] edical DATE: 07/28/2015 11:34 PM [employer] Xiang [address] INDICATION: Abnormal chest sounds COMPARISON: X-ray chest 07/24/2015 TECHNIQUE: AP chest FINDINGS: Left lung base sub segmental atelectasis/scarring is present, otherwise no focal consolidation or pleural effusion is identified. The cardiomediastinal silhouette is normal for technique. Descending aortic calcifications noted. No acute bony abnormality is identified. Remote bilateral rib fractures are again seen. Surgical mayra overlie the right chest wall. Oval metallic density overlying the upper thoracic spine has change d position since the prior exam and probably is extrinsic. IMPRESSION: Left lung base subsegmental atelectasis/scarring, otherwise no acute abnormality in the chest. Spine cervical wo EXAM: MRI CERVICAL SPINE WITHOUT CONTRAST 07/13 [facility] contrast MRI DATE: 07/28/2015 6:48 PM [employer] IN[employer] Cent er INDICATION: Pain with radiculopathy COMPARISON: CT C-spine, 07/28/2015 TECHNIQUE: Multiplanar, mult isequence noncontrast MR imaging of the cervical spine. Multiple sequences are limited by motion. IV contrast: None. FINDINGS: Vertebra: There is exaggerated lordosi s of the lower cervical spine. Mild bone marrow edema is present in the anterior C3 vertebral body inferiorly and in the right posterior C7 facet and lamina, at the levels of the previously described C3 and C7 fractures. Spinal canal and cord: Minim al degenerative retrolisthesis of C3 on C4 with a pseudobulge of subluxation and a superimposed small midline protrusion associated with bone spur formation. 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 Paraspinal soft tissues: Normal. IMPRESSION: 1. Cord compression with co rd edema due to spinal canal stenosis from C3 to C7. Per clinical progress note, the spine team is aware of the findings. 2. Bone marrow edema at C3 and C7 associated with the previously described fractures. Spine thoracic wo EXAM: CT THORACIC SPINE WITHOUT CONTRAST 07/28 [facility] contrast CT (ER) DATE: 07/28/2015 6:48 PM [employer] Xiang [address] INDICATION: Pain Post Trauma COMPARISON: None TECHNIQUE: Volumetric acqui sition of the thoracic spine without contrast. Axial, sagittal and coronal reconstructions. IV contrast: None. FINDINGS: There is no fracture or samir lignment of the thoracic spine. There are moderate degenerative changes with small anterior osteophytes and facet arthropathy in the mid thoracic spine. Again seen are minimally dis placed comminuted right C7 transverse process fracture and mildly displaced right C7 axial oblique intra-articular fracture the superior inferior facets with exten elvi into a coronally orientated lamina fracture . Mild right greater than left emphysematous changes are seen at the upper lungs. There is mild left base scarring bilaterally. IMPRESSION: No fracture or malalignment of the t horacic spine. Spine lumbar wo EXAM: CT LUMBAR SPINE WITHOUT CONTRAST 6 [facility] Medical contrast CT (ER) DATE: 07/28/2015 6:48 PM [employer] X[place] [address] INDICATION: Pain Post Trauma COMPARISON: None TECHNIQUE: Volumetric acqui sition of the lumbar spine without contrast. Axial, sagittal and coronal reconstructions. IV contrast: None. FINDINGS: No fracture, malal ignment or other acute bony abnormality is identified. No soft tissue abnormality is identified. There are moderate degenerative changes with joint space narrowing and small anterior osteophytes throug hout the lumbar spine. There is a L5-S1 anterior spinal fusion. There is joint space narrowing with near fusion of the anterior bilateral SI joints. Note is made of abdominal aortic calcification and IVC filter. IMPRESSION: 1. No fracture or malalignment of the lumbar spi ne. 2. Bilateral anterior SI quirino nt space fusion is likely due to ankylosing spondylitis. Spine cervical wo EXAM: CT CERVICAL SPINE WITHOUT CONTRAST 07/28 [facility] contrast CT (ER) DATE: 07/28/2015 5:42 PM CR[employer]INAL [employer] IN[employer] Xiang ter INDICATION: Pain, Trauma COMPARISON: CT cervical spine 07/28/2015 at 1733 hours TECHNIQUE: Volumetric acqui sition of the cervical spine without contrast. Axial, sagittal and coronal reconstructions. Examination was repeated due to poor image quality from outside study. IV contrast: None. FINDINGS: The spine is imaged from the skull bas e to the level of T3. There is a mildly displaced intra-articular fracture of the right C7 vertebrae the superior and inferior facets with extension into the lamina. There is no cervical malalignment. There is a m ildly displaced comminuted f racture of the right C7 transverse process. There is a mildly displaced C3 anterior/inferior corner fracture. Small anterior osteophytes a nd mild disc space narrowing is seen between C3-C7. There is bilateral apical sc arring. Multiple blebs are seen at the left lung apex. IMPRESSION: 1. Mildly displaced intra-ar ticular fracture of the right C7 vertebrae the superior and inferior facets extending into the lamina. 2. Mildly displaced, fracture of the right C7 tr ansverse process. 3. Mildly displaced C3 anter ior-inferior corner fracture (Hyperextension teardrop). Consultation Notes No Data Provided for This Section Discharge Summaries No Data Provided for This Section History and Physicals No Data Provided for This Section Vital Signs Vital Sign Value Date Comments Source Respitory Rate 22 03/21/2019 [facility] Systolic (mm Hg) 135 03/21/2019 [facility] Diastolic (mm Hg) 69 03/21/2019 [facility] Respitory Rate 23 03/21/2019 [facility] Systolic (mm Hg) 137 03/21/2019 [facility] Me dical Center Diastolic (mm Hg) 65 03/21/2019 [facility] edical Center Respitory Rate 16 03/21/2019 [facility] Center Systolic (mm Hg) 138 03/21/2019 [facility] Me dical Center Diastolic (mm Hg) 77 03/21/2019 [facility] edical Center Height 195.58 cm 03/21/2019 [facility] Weight 84.091 03/21/2019 [facility] BMI Calculated 21.98 03/21/2019 [facility] Center Heart Rate 64 03/21/2019 [facility] BMI Calculated 25.22 09/20/2016 [facility] Weight 89.091 09/20/2016 [facility] Height 187.96 cm 09/20/2016 [facility] Temperature Oral (F) 98.3 F 09/20/2016 [facility] Respitory Rate 20 09/20/2016 [facility] Heart Rate 92 09/20/2016 [facility] Systolic (mm Hg) 130 09/20/2016 [facility] Diastolic (mm Hg) 79 09/20/2016 [facility] Systolic (mm Hg) 134 08/25/2016 [facility] Diastolic (mm Hg) 78 08/25/2016 [facility] Respitory Rate 15 08/25/2016 [facility] Systolic (mm Hg) 111 08/25/2016 [facility] Diastolic (mm Hg) 76 08/25/2016 [facility] Respitory Rate 20 08/25/2016 [facility] Systolic (mm Hg) 120 08/25/2016 [facility] Diastolic (mm Hg) 79 08/25/2016 [facility] Respitory Rate 14 08/25/2016 [facility] Heart Rate 71 08/25/2016 [facility] Weight 87.727 08/24/2016 [facility] Height 193.04 cm 08/24/2016 [facility] BMI Calculated 23.54 08/24/2016 [facility] Heart Rate 80 08[facility]06[facility] Resp[facility] 20 [facility] Systolic (mm Hg) 122 08/06/2015 [facility] Diastolic (mm Hg) 79 08/06/2015 [facility] Temperature Oral (F) 98.2 F 08/06/2015 [facility] Systolic (mm Hg) 125 08/06/2015 [facility] dical Center Diastolic (mm Hg) 82 08/06/2015 [facility] Respitory Rate 18 08/06/2015 [facility] Temperature Oral (F) 97.7 F 08/06/2015 [facility] Heart Rate 71 08/06/2015 [facility] Respitory Rate 18 08/06/2015 [facility] Heart Rate 69 08/06/2015 [facility] Temperature Oral (F) 97.5 F 08/06/2015 [facility] Systolic (mm Hg) 106 08/06/2015 [facility] dical Center Diastolic (mm Hg) 72 08/06/2015 [facility] Weight 100.455 08/01/2015 [facility] Height 193.04 cm 07/29/2015 [facility] BMI Calculated 28.05 07/29/2015 [facility] Weight 104.545 07/29/2015 [facility] Weight 104.545 07/28/2015 [facility] Center Height 193.04 cm 07/28/2015 [facility] BMI Calculated 28.05 07/28/2015 [facility] Encounters Location Location Encounter Encounter Reason Attending ADM DC Stat us Source Details Type Number For Provider Date Date Visit [facility] [id number] Jhonathan 07/28 08/06 [facility] Jerson Gee Jr /2015 [facility] Outpt Diag [id number] Corwin 08/05 08/06 [facility] Frank /2016 [facility] Day Surgery [id number] Hector 08/25 08/25 Lina Alaniz /2016 [facility] [id number] [facility] Outpt Diag [id number] Sergio Chong 02/10 02/11 [facility] [place] [facility] Outpatient [id number] Sergio Chong 02/14 02/15 Jerson /2016 [facility] Surgery [id number] Arnaldo 06/15 06/15 [facility] Achor /2018 [facility] Outpt Diag [id number] Fabio 09/24 09/25 [facility] Prasarn /2018 [place] [facility] Surgery [id number] Arnaldo 03/21 03/22 [facility] Achor /2018 [facility] Outpt Diag [id number] Shahin 04/16 04/16 [facility] Shirzadi /2018 [facility] Outpt Diag [id number] Sergio Chong 06/27 06/28 [facility] /2019 [facility] Procedures Procedure Code Date Perfomer Comments Source IVC - Insertion of [id number] 06/12/2010 Abhay as inferior vena caval Medic al filter Center, PAT Andrade,[facility] Ankle joint [id number] 2010mulitiple [facility] operations<sup>1, surgeries Medical 2</sup> Center, PAT Andrade,[facility] Arthroscopy of knee [id number] [facility], [facility], PAT Andrade,[facility] Fusion<sup>3</sup> [id number] cervical [facility] as Medical Center, PAT And[place],[facility] Lumbar and [id number] [facility] lumbosacral fusion Medica l by anterior Center, technique [facility], PAT [place], PAT Andrade,[facility] ORIF - Open [id number] wrist [facility] reduction and [facility] internal fixation Center, PAT [place],[facility] fracture<sup>4</sup [place] > Tonsillectomy [id number] [facility], [facility], PAT And[place],[facility] Ankle joint [id number] mulitiple [facility], operations<sup>1</s surgeries [facility] up> Fusion<sup>2</sup> [id number] cervical [facility] ORIF - Open [id number] wrist [facility], reduction and [facility] internal fixation of fracture<sup>3</sup > Assessment and Plan Assessment and Plan Date Source Extracted from:Title: Hospitalist Progress Note 08/06/2015 [facility] Author: Jhonathan Soni MD Date: 08/05/15 Assessment/Plan 1.Central cord syndrome of cervical spi nal cord Status post PSIF C3-T1, POD 7, Continue pain control and PT 2.C6-7 cervical fracture Status post open fracture treatme nt on 07/29 3.HTN (hypertension) Well controlled on present regimen 4.GERD (gastroesophageal reflux disease) Continue PPI 5.H/o Right leg DVT, over 3 years prior 6.Chronic cutaneous venous stasis ulcer to LLE Continue lo haresh wound care 8.History of BPH Tamsulosin Orders: MD to Nurse Order, Misc MD to Nurse Order, [facility] MSG Change Admitting MD Prophylaxis Disposition Patient will need to follow up with Dr. Reyes in clinic 3 weeks post-op (~08/18), please call [phone] for appointment. Pending inpatient rehabilitation. [facility] Hospitalist is primary. Page [phone] with questions. 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 Site Date Left ankle drainage - 06/21/11 Isolation Required: CONTACT Before isolation precautions may be disc ontinued for this hospital visit, the following protocol must be followed and Infection Control should be notified: Patient must be off antibiotics for 72 hours or 7 days if on dialysis and vancomycin. Send one MRSA PCR nares specimen. Please place order for MRSA PCR. Do not order MRSA Culture. If MRSA PCR is negative, isolation may be discontinued. Patient can only be cleared from isolati on for this visit. If readmitted, patient must be isolated and screened for MRSA again. Consult Infection Control for suggested regimens for decolonization of p atients with MRSA as well as for any que stions. We can be reached at [phone]. Extracted from:Title: Hospitalist History and Physical Author: Liliana Sandra MD Date: 07/29/15 Assessment/Plan Mr. Sandhu is a 60 year old man with P MHx of HTN, GERD, BPH, chronic venous stasis ulcer to LLE, and recent fall susutaining C6-7 fracture who presents with right sided neck pain, numbness/tingling to bilateral UE and headache, concern for development of centr al cord syndrome. 1.Central cord syndrome of cervical spi nal cord Multi-level cervical stenosis s/p fall, ORS Spine consulted - Per ORS- keep flat or HOB 30 degrees , c spine precautions, avoid hyperextension of C spine, [place] at all times - Pending OR at this time with ORS Spi ne, NPO and IVF at this time with chemoppx held - Multi-modal pain therapy with BM regimen and can titrate as needed. 2.C6-7 cervical fracture See above, [place] at all times 3.HTN (hypertension) BP mildly elevate d likely 2/2 pain at this time, cont on home meds and cont to work on pain control 4.GERD (gastroesophageal reflux disease) Cont on PPI if ne eded 5.H/o Right leg DVT, over 3 years prior No need for any anticoagulation at this time, no concerning exam findings and per EMR likely provoked due to prior surgery with debilitated state 6.Chronic cutaneous venous stasis ulcer to LLE Pt with ulcer on exam and skin changes, reports some pain and has been seeing outpatient wound care. Wound care consulted at this time. 7.Preoperative clearance Patient has no minor CAD predictor(s) including: advanced age, abnormal EKG, uncontrolled systolic hypertension, and a rhythm other than sinus Patient has no significant clinical ri sk factor(s) including: history of ischemic heart disease, compensated or prior heart failure, cerebrovascular disease, diabetes mellitus, and renal insufficiency The patients METS are: < 4, related to chronic pain from L ankle s/p prior surgeries EKG: NSR The surgery specific risk is: Intermediate Recommendation: No further medical wor kup prior to surgery. Patient is a low cardiovascular risk for a intermediate surgical procedure. 8.History of BPH Cont on home tamsulosin Psych: Pt home meds indicative of anxiety and possible bipolar? Will need to re- clarify with patient given he does not give this history when talking with him. Prophylaxis Held pending OR- chemoppx once cleared by ORS Spine Disposition Pending OR with ORS Spine [facility] Hospitalists are primary for this p atient, please page [phone] with questions. Plan of Care No Data Provided for This Section Social History Social History Date Source Social History TypeResponse 10/13/2016 [facility] [place] Alcohol Never, Previous treatment: None. Substance Abuse Use: None. Smoking Status Current every day smoker; Type: Cigarett es; Ready to change: Yes; Exposure to Tobacco Smoke None; Cigarette Smoking Last 365 Days Yes; Reg Smoking Cessation Counseling Yes entered on: 03/21/19 Social History TypeResponse 10/13/2016 [facility] Alcohol Never, Previous treatment: None. Substance Abuse Use: None. Smoking Status Current every day smoker; Type: Cigarett es; Ready to change: Yes; Exposure to Tobacco Smoke None; Cigarette Smoking Last 365 Days Yes; Reg Smoking Cessation Counseling Yes entered on: 03/21/19 Social History TypeResponse 10/11/2016 [facility] Substance Abuse Use: None. Alcohol Never, Previous treatment: None. Smoking Status Current every day smoker; Type: Cigarett es; Tobacco use per day: 1; Previous treatment: None; Ready to change: Yes; Concerns about tobacco use in household: No; Lives with someone who smokes; Cigarette Smoking Last 365 Days Yes; Reg Smoking Cessation Counseling Yes Social History TypeResponse 08/24/2016 [facility] Substance Abuse Use: None. Alcohol Never Smoking Status Current every day smoker; Ready to cummings e: Yes; Exposure to Tobacco Smoke None; Cigarette Smoking Last 365 Days Yes; Reg Smoking Cessation Counseling Yes Social History TypeResponse 08/24/2016 [facility] Substance Abuse Use: None. Alcohol Never Smoking Status Current every day smoker; Ready to cummings e: No; Concerns about tobacco use in household: No; Exposure to Tobacco Smoke None; Cigarette Smoking Last 365 Days Yes; Reg Smoking Cessation Counseling No Social History TypeResponse 07/28/2015 [facility] Smoking Status Current every day smoker; Exposure to To bacco Smoke None; Cigarette Smoking Last 365 Days Yes; Reg Smoking Cessation Counseling Yes Family History No Data Provided for This Section Advance Directives No Data Provided for This Section Functional Status No Data Provided for This Section
--- OUTSIDE RECORDS SUMMARY | 2020-02-09 08:59 | XMS REPORT | Continuity of Care Document ---
:1955 Author Organization [facility] t Address [address] [place] [address] Care Team Providers Name Role Phone LYNNE Attending Clinician Unavailable Castillo Attending Clinician Unavailable ALIDA Attending Clinician Unavailable CARLOS Attending Clinician Unavailable NORTH Attending Clinician Unavailable VASCULAR Attending Clinician Unavailable KALEIGH Attending Clinician Unavailable CELIA Attending Clinician Unavailable Problems Condition Condition Condition Status Onset Resolution Last Treating Co mments Source Name Details Category Date Date Treatment Clinician Date History of History of Problem Resolve Univers essential essential d ity of hypertens[place]ens[place] on on Physici ans Status Status Problem Active Univers post post ity of cervical cervical [place] spinal spinal Physici arthrodesi arthrodesi an s s s Cervical Cervical Problem Active Unive rs myelopathy myelopathy it y of [place] Physici ans Left Left Problem Active Univers lateral lateral ity of ankle pain ankle pain [place] ans Pain, Pain, Problem Active Univers foot, foot, ity of chronic, chronic, [place] left left Physici ans Acute left Acute left Problem Active U nivers ankle pain ankle pain it y of [place] Physici ans Open Open Problem Active Univers fracture fracture ity of of medial of medial [place] malleolus malleolus Phys ici of left of left ans ankle, ankle, type I or type I or II, II, initial initial encounter encounter Open Open Problem Active Univers displaced displaced ity of pilon pilon [place] fracture fracture Physic i of left of left ans tibia tibia Painful Painful Problem Active Univers orthopaedi orthopaedi it y of c hardware c hardware [place] ans Left knee Left knee Problem Active Uni vers pain pain ity of [place] Physici ans Venous Venous Problem Active Univers ulcer ulcer ity of [place] Physici ans Amputation Amputation Problem Active U nivers of leg of leg ity of below below [place] knee, knee, Physici left, left, ans traumatic traumatic Allergies, Adverse Reactions, Alerts Allergy Allergy Status Severity Reaction(s) Onset Inactive Treating Comm ents Source Name Type Date Date Clinician Ibuprofe Allergy Active Univers n TABS to drug ity of (finding [place] ) Physici ans Social History Smoking Status Start Date Stop Date Source Occasional tobacco smoker [facility] Physicians (finding) Medications Ordered Filled Start Stop Current Ordering Indication Dosage Frequency Signature Comments Components Source Medication Medication Date Date Medication? Clinician (SIG) Name Name Vitamin D3 Vitamin D3 Yes GLADYS Take one Univers 1.25 MG 1.25 MG 5-26 [place] tablet it y of (27873 [place]) ([address]77 [place]) 00:00: weekly [place] Oral Oral 00 Physici Capsule Capsule ans Lyrica 25 Lyrica 25 Yes Arnaldo 1 Q0.3333D TAKE 1 Univers MG Oral MG Oral 1-03 Achor M.D. CAPSULE 3 ity of Capsule Capsule 00:00: TIMES [place] 00 DAILY Physici ans traMADol traMADol 2010-06 Yes GLADYS TAKE 1 U nivers HCl - 50 MG HCl - 50 MG 1-07 [place] TABLET ity of Oral Tablet Oral Tablet 00:00: EVERY 6 [place] 00 HOURS Physici NEEDED. ans HYDROcodone HYDROcodone 2010-06 Yes GLADYS TAKE 1 Univers -Acetaminop -Acetaminop 1-07 [place] TABLET ity of hen 10-325 hen 10-325 00:00: EVERY 4 [place] MG Oral MG Oral 00 HOURS Physi ci Tablet Tablet NEEDED FOR ans PAIN. Procedures Procedure Date / Time Performed Performing Clinician [facility] e MRI Spine cervical wo 2018-08-15 00:00:00 [facility] contrast [id number] Physicians [U] XRAY BONE LENGTH 2018-05-28 00:00:00 [facility] STUDY-SCANOGRAM [id number] Physicians [U] XRAY KNEE 1 OR 2 2018-05-28 00:00:00 [id number]U] XRAY KNEE 1 OR 2 2018-05-25 00:00:00 [facility] [id number] Physicians [U] XRAY KNEE 1 OR 2 2017-10-13 00:00:00 [facility] [id number] Physicians [U] XRAY KNEE 1 OR 2 2017-09-29 00:00:00 [facility] [id number] Physicians [U] XRAY KNEE 1 OR 2 2017-07-10 00:00:00 [facility] of [place] VWS LEFT [id number] Physicians [U] XRAY KNEE 1 OR 2 2017-07-04 00:00:00 [facility] [place] VWS LEFT 08469 Physicians History of Ankle [facility] Physicians Plan of Care Planned Activity Planned Date Details Comments Source Diagnostic Test 2018-06-25 [U] XRAY KNEE 1 [facility] y of [place] Pending 00:00:00 OR 2 VWS LEFT Physicians [id number] [code = [id number]] Encounters Start End Encounter Admission Attending Care Care Encounter Source Date/Time Date/Time Type Type Clinicians Facility Department ID 2019-04-01 2019-04-01 NAKUL Iyer [facility] [id number] Univers 12:45:00 12:45:00 t; GLADYS BATSITA PA ity of [place] Physici ans 2019-04-01 2019-04-01 NAKUL Iyer UTP [id number] Univers 11:00:00 11:00:00 t; GLADYS [place] PA ity of [place] Physici ans 2019-03-21 2019-03-21 AppointNAKUL Heredia UTP [id number] Univers 07:00:00 07:00:00 t; Arnaldo Chong ity of [place], M.D. [place] M.D. Physici ans 2019-03-21 2019-03-21 AppointNAKUL Heredia UTP [id number] Univers 07:00:00 07:00:00 t; Arnaldo Chong ity of [place], M.D. [place] M.D. Physici ans 2019-03-21 2019-03-21 Outpatient [facility] [id number] [facility] 06:00:00 06:00:00 2019-02-25 2019-02-25 AppointNAKUL Dong UTP [id number] Univers 10:15:00 10:15:00 t; GLADYS [place] PA ity of [place] Physici ans 2018-08-15 2018-08-15 NAKUL [facility] [id number] Univers 14:00:00 14:00:00 t; Tess CADENA at [facility] xi Rudy Medina M.D. Physi ci ans 2018-05-28 2018-05-28 Appointmen LYNNE [facility] Orthopedics [id number] Univers 11:45:00 11:45:00 t; GLADYS [place] PA ity of [place] Physici ans 2018-04-30 2018-04-30 Appointalexi [place] [facility] Orthopedics [id number] Univers 11:00:00 11:00:00 t; GLADYS [place] PA ity of [place] Physici ans 2017-10-16 [facility] Orthopedics [id number] Univers 09:30:00 09:30:00 t; GLADYS [place] PA ity of [place] Physici ans 2017-10-09 2017-10-09 [facility] Orthopedics [id number] Univers 10:45:00 10:45:00 t; GLADYS [place] PA ity of [place] Physici ans 2017-07-10 2017-07-10 Appointmen LYNNE [facility] [id number] Univers 10:45:00 10:45:00 t; GLADYS [place] ity of [place] [facility] [address] Physici ans 2017-04-17 2017-04-17 Appointmen LYNNE [facility] [id number] Univers 09:30:00 09:30:00 t; GLADYS [place] PA ity of [place] Physici ans 2017-01-27 2017-01-27 Appointmen LYNNE [facility] [id number] Univers 12:00:00 12:00:00 t; GLADYS [place] PA ity of [place] Physici ans 2017-01-20 2017-01-20 Appointmen LYNNE [facility] [id number] Univers 11:30:00 11:30:00 t; GLADYS [place] PA ity of [place] Physici ans 2016-11-21 2016-11-21 Appointmen LYNNE [facility] [id number] Univers 10:30:00 10:30:00 t; GLADYS [place] PA ity of [place] Physici ans 2016-11-04 2016-11-04 Appointmen LYNNE [facility] [id number] Univers 10:30:00 10:30:00 t; GLADYS [place] PA ity of [place] Physici ans 2016-10-26 2016-10-26 Appointmen CARLOS, UTP UTP [id number] Univers 10:30:00 10:30:00 t; JOHANA GONZALEZ i ty of DANIELLE, M.D. [facility] Physici ans 2016-10-25 2016-10-25 Appointmen LYNNE, UTP UTP [id number] Univers 10:00:00 10:00:00 t; GLADYS [place] PA ity of [place] Physici ans 2016-10-13 2016-10-13 Appointmen Castillo, UTP UTP [id number] Univers 08:00:00 08:00:00 t; Arnaldo Chong ity of [place], M.D. [facility] Physici ans 2016-09-20 2016-09-20 Appointmen GONZALEZ, UTP UTP [id number] Univers 11:00:00 11:00:00 t; JOHANA GONZALEZ i ty of DANIELLE, M.D. [facility] ans 2016-09-09 2016-09-09 Appointmen LYNNE, UTP UTP [id number] Univers 12:30:00 12:30:00 t; GLADYS [place] PA ity of GLADYS [facility] Physici ans 2016-08-25 2016-08-25 Appointmen NORTH, UTP UTP [id number] Univers 12:00:00 12:00:00 t; DIAMANTE KAT ity of [place], M.D. [facility] ans 2016-08-23 2016-08-23 Appointmen VASCULAR, UTP UTP [id number] Univers 10:00:00 10:00:00 t; [facility] christi brooks VASCULAR, [facility] Physici ans 2016-08-23 2016-08-23 Appointmen NORTH, UTP UTP [id number] Univers 10:00:00 10:00:00 t; DIAMANTE KAT ity of [place], M.D. [facility] ans 2016-08-15 2016-08-15 Appointmen KALEIGH, UTP UTP [id number] Univers 16:00:00 16:00:00 t; christi PEDROZA M.D. [place] PEDROZA M.D. ans 2016-08-01 2016[facility] KALEIGH, NAKUL UTP [id number] Univers 14:45:00 14:45:00 t; christi PEDROZA M.D. [place] PEDROZA M.D. ans 2016-07-14 2016-07-[facility] CELIA, NAKUL UTP [id number] Univers 12:45:00 12:45:00 t; ELVI YANG ity of [place] Екатерина Physici ans 2016-03-01 2016-03-[facility] CELIA, NAKUL UTP [id number] Univers 12:45:00 12:45:00 t; ELVI YANG ity of [place] Екатерина Physici ans 2016-01-20 2016-01-[facility] CELIA, NAKUL UTP [id number] Univers 12:50:00 12:50:00 t; ELVI YANG ity of [place] Екатерина Physici ans 2016-01-19 2016-01-[facility] CELIA, NAKUL UTP [id number] Univers 11:50:00 11:50:00 t; ELVI YANG ity of [place] Екатерина Physici ans 2016-01-19 2016-01-[facility] CELIA, NAKUL UTP [id number] Univers 11:45:00 11:45:00 t; ELVI YANG ity of [place] Екатерина Physici ans 2015-10-20 2015-10-[facility] CELIA, NAKUL UTP [id number] Univers 11:50:00 11:50:00 t; ELVI YANG ity of [place] Екатерина Physici ans 2015-09-08 2015-09-[facility] CELIA, NAKUL UTP [id number] Univers 11:50:00 11:50:00 t; ELVI YANG ity of [place] M.D. [place], M.D. Physici ans 2015-08-18 2015-08-18 Appointmen NAKUL YANG [facility] [id number] Univers 12:40:00 12:40:00 t; ELVI YANG ity of [place] M.D. [place], M.D. Physici ans Results Test Description Test Time Test Comments Results Result Sour e Comments [U] XRAY KNEE 1 2018-04-30 Images Universit y of [place] 2 VWS LEFT 11:32:00 acquired, not [place] [id number] reported on Physicians this accession number.
[2020-02-09] MEDS ORDERED: FENTANYL CITR 100 MCG/2 ML ONE (09:51)
[2020-02-09] MEDS ORDERED: HYDROMORPHONE HCL 2 MG/ML inj ONE (10:30)
[2020-02-09] MEDS ORDERED: ONDANSETRON 4 MG/2 ML VIAL ONE (10:30)
--- NOTE | 2020-02-09 11:01 | RAD REPORT ---
EXAM DESCRIPTION: CT - Thoracic Spine W/o Cont - 02/09/2020 10:41 am CLINICAL HISTORY: Fall, persistent neck, chest and spine pain, history of fracture with hardware placement COMPARISON: No remote imaging adequately evaluating the thoracic spine TECHNIQUE: Axial 3 mm thick images of the thoracic spine were obtained with sagittal and coronal rec onstruction images generated and reviewed. All CT scans are performed using dose optimization technique as appropriate and may include automated exposure control or mA/KV adjustment according to patient size. FINDINGS: Approximately 30% wedge compression deformity is present in the T4 body. No paraspinal mas s or hematoma. No acute fracture lines are identifiable. This is probably chronic. Posterior wall hei ght is maintained. Remaining thoracic vertebrae show normal height. No subluxation abnormality. There is right convex cu rvature spanning the thoracic spine. Degenerative gas is seen at multiple disc levels. Endplate spurr ing changes are relatively mild. Prominent calcification of the posterior longitudinal ligament seen at the T5-6 level. This does not cause spinal stenosis. No pathologic bone process. Rib fracture findings are separately detailed CT chest report. Central canal detail is inherently limited on CT imaging. IMPRESSION: T4 30% wedge compression deformity with posterior wall height preserved. Findings favor this to be chronic. There are no prior studies that allow evaluation of the T4 body. Remainder the thoracic spine shows degenerative disc and endplate changes. No acute findings identifi ed.
--- NOTE | 2020-02-09 11:06 | RAD REPORT ---
EXAM DESCRIPTION: CT - C Spine Wo Con - 02/09/2020 10:41 am CLINICAL HISTORY: Fall, head and neck injury persistent neck pain, prior surgery with fusion hardwar e COMPARISON: CT cervical spine July 2015 TECHNIQUE: Axial 2 mm thick images of the cervical spine were obtained with sagittal and coronal rec onstruction images generated and reviewed. All CT scans are performed using dose optimization technique as appropriate and may include automated exposure control or mA/KV adjustment according to patient size. FINDINGS: Transverse fracture is present through the base of the dens. Fracture line sharply demarca addy with no cortical margin or remodeling changes. Acute fracture is suspected. There is no distracti on or angulation. Cervical bodies are normal in height. Slight anterior subluxation of C6 from degene rative change. This is stable. Mild disc space narrowing throughout the cervical spine. No other frac ture. No pathologic bone process. Since prior imaging patient has undergone posterior decompression w ith hardware placement. Posterior decompression involves C3-C6. Additional hardware is extends to the T1 level. No fracture of hardware. Hardware appears to maintain normal positioning. Inherent central canal limitations are further limited by the metal spray artifact of the fixation hardware across th e facet joints. No paraspinal mass or hematoma. IMPRESSION: Acute transverse fracture through the base of the dens. No displacement or subluxation a bnormalities. No other acute bone finding. The fusion hardware in the posterior elements spanning C3-T1 show no fra cture changes. Hardware appears to be normally positioned.
--- NOTE | 2020-02-09 11:14 | RAD REPORT ---
EXAM DESCRIPTION: CT - Thorax Wo Con - 02/09/2020 10:41 am CLINICAL HISTORY: let lower rib pain, trauma COMPARISON: [id number] dated 07/28/2015 TECHNIQUE: Axial 5 mm thick images of the chest were obtained without IV contrast. All CT scans are performed using dose optimization technique as appropriate and may include automated exposure control or mA/KV adjustment according to patient size. FINDINGS: Atelectasis changes are present in the posterior lower lung field. Parenchymal stranding c hanges are present. No large pulmonary contusion. There is no pneumothorax. Small 5 mm nodular focus present in the posteromedial upper chest within or adjacent to the superior most aspect of the fissur e. In the superior left upper lobe an 11 millimeter slightly spiculated nodule is present. No prior i maging to establish long-term stability. Small granuloma seen in the anterior upper right lung field. Emphysema changes are present. Patient has granulomatous calcifications. No abnormal mediastinal or hilar masses or lymphadenopathy seen. Ascending aorta is 4.3 cm in diamete r. No associated calcifications. Aortic cannot be further assessed in the absence of contrast. No ane urysm in the aortic arch or descending thoracic aorta. No pericardial thickening or effusion. No chest wall mass or abnormal axillary lymphadenopathy. Patient has multiple old rib fractures. Displaced posterior twelfth rib fracture is probably old. The re is a nondisplaced acute fracture posterior left seventh rib fracture. Comminuted but nondisplaced posterolateral eighth rib fractures present comminuted posterior ninth and tenth rib fractures are pr esent. The tenth rib fracture is displaced 1 full shaft width. Two posterior fractures of the elevent h rib are present. Thoracic vertebral findings are detailed in separate report. IMPRESSION: Multiple displaced and nondisplaced acute posterior left rib fractures are present neel ing the seventh-eleventh ribs. No pneumothorax is present. There is pleural thickening and parenchymal stranding that are a combinat ion of small amount of hemorrhage and atelectasis. Suspicious 11 millimeter spiculated nodule in the left upper lobe with no prior imaging to establish long-term stability. Once the patient is stabilized from the acute trauma, PET-CT imaging could be u sed to evaluate metabolic activity of this nodule. Scarring and emphysema changes are present in the lung [place]. Patient has multiple well-healed an un united old rib fractures.
--- NOTE | 2020-02-09 12:06 | EDPHYS ---
Physician Documentation [facility] Name: Kota Caldwell Age: 65 yrs Sex: Male : 1955 Arrival Date: 02/09/2020 Time: 08:56 Bed 7 Private MD: Jem Marcos V ED Physician Jaiden Bello HPI: 02/08 11:05 This 65 yrs old Male presents to ER via Wheelchair with complaints of Fall ma2 Injury, Neck Problem. 11:05 Details of fall: The patient fell from an upright position. Onset: The symptoms/episode ma2 began/occurred suddenly, 1 week(s) ago. Associated injuries: The patient sustained neck injury. Severity of symptoms: At their worst the symptoms were very mild, in the emergency department the symptoms are unchanged. The patient has not experienced similar symptoms in the past. Historical: - Allergies: 09:14 No Known Allergies; ss - PSHx: 09:14 back surgery; ss - Immunization history:: Adult Immunizations up to date. - Social history:: Smoking status: Patient reports the use of cigarette tobacco products, smokes one pack cigarettes per day. - Family history:: not pertinent. ROS: 11:05 Constitutional: Negative for fever, chills, and weight loss. ma2 11:05 All other systems are negative. Exam: 11:05 Constitutional: This is a well developed, well nourished patient who is awake, alert, ma2 and in no acute distress. Head/Face: Normocephalic, atraumatic. Eyes: Pupils equal round and reactive to light, extra-ocular motions intact. Lids and lashes normal. Conjunctiva and sclera are non-icteric and not injected. Cornea within normal limits. Periorbital areas with no swelling, redness, or edema. ENT: Nares patent. No nasal discharge, no septal abnormalities noted. Tympanic membranes are normal and external auditory canals are clear. Oropharynx with no redness, swelling, or masses, exudates, or evidence of obstruction, uvula midline. Mucous membranes moist. Neck: Trachea midline, no thyromegaly or masses palpated, and no cervical lymphadenopathy. Supple, full range of motion without nuchal rigidity, or vertebral point tenderness. No Meningismus. Chest/axilla: Normal chest wall appearance and motion. Nontender with no deformity. No lesions are appreciated. Cardiovascular: Regular rate and rhythm with a normal S1 and S2. No gallops, murmurs, or rubs. Normal PMI, no JVD. No pulse deficits. Respiratory: Lungs have equal breath sounds bilaterally, clear to auscultation and percussion. No rales, rhonchi or wheezes noted. No increased work of breathing, no retractions or nasal flaring. Abdomen/GI: Soft, non-tender, with normal bowel sounds. No distension or tympany. No guarding or rebound. No evidence of tenderness throughout. Back: No spinal tenderness. No costovertebral tenderness. Full range of motion. Skin: Warm, dry with normal turgor. Normal color with no rashes, no lesions, and no evidence of cellulitis. MS/ Extremity: Pulses equal, no cyanosis. Neurovascular intact. Full, normal range of motion. Neuro: Awake and alert, GCS 15, oriented to person, place, time, and situation. Cranial nerves II-XII grossly intact. Motor strength 5/5 in all extremities. Sensory grossly intact. Cerebellar exam normal. Normal gait. Vital Signs: 09:12 BP 149 / 93; Pulse 95; Resp 16; Temp 98.5(TE); Pulse Ox 100% ; Weight 83.91 kg; Height ss 6 ft. 5 in. (195.58 cm); Pain 10/10; 10:17 Pulse 82; Resp 15; Pulse Ox 100% on R/A; hb 11:22 BP 164 / 96; Pulse 84; Resp 16; Pulse Ox 100% ; ll1 12:17 BP 170 / 98; Pulse 86; Resp 16; Pulse Ox 100% ; Pain 6/10; ll1 09:12 Body Mass Index 21.94 (83.91 kg, 195.58 cm) ss MDM: 09:15 Patient medically screened. va2 11:05 Differential diagnosis: abrasion, closed head injury, contusion, fracture. [facility] 12:01 Data reviewed: vital signs, nurses notes. Counseling: I had a detailed discussion with ma2 the patient and/or guardian regarding: the historical points, exam findings, and any diagnostic results supporting the discharge/admit diagnosis, the presence of at least one elevated blood pressure reading (>120/80) during this emergency department visit. Response to treatment: the patient's symptoms have markedly improved after treatment. ED course: mutiple unstable fracture.. he agreed to transfer then he decide he want to leave AMA and transfer by a private car i explained that this is unstable fracture and he will need to be immobilized. He states he has to take care of things at home and he will have someone drive him to [facility], i explained that this is unsafe he still want to to pursue that and will leave ama understands risk of paralysis and as possible paralysis of respiratory muscle... i told him about the lung nodule and need for pet scan in 6 month. 02/08 09:38 Order name: CT C Spine; Complete Time: 11:57 ma2 02/08 09:38 Order name: CT Thoracic Spine Wo Cont; Complete Time: 11:57 ma2 02/08 09:38 Order name: CT Chest Wo Con; Complete Time: 11:57 ma2 02/08 09:38 Order name: IV Start; Complete Time: 09:49 ma2 Administered Medications: 09:49 Drug: fentaNYL (PF) 50 mcg {Note: rass1.} Route: IVP; Site: right antecubital; sv 12:19 Follow up: Response: No adverse reaction; Pain is unchanged, physician notified; RASS: ll1 Alert and Calm (0) 10:23 Drug: Zofran (Ondansetron) 4 mg Route: IVP; Site: right antecubital; ll1 12:19 Follow up: Response: No adverse reaction ll1 10:24 Drug: Dilaudid 1 mg {Note: RASS 0.} Route: IVP; Site: right antecubital; ll1 12:19 Follow up: Response: No adverse reaction; RASS: Alert and Calm (0) ll1 11:41 Drug: Dilaudid 1 mg {Note: RASS 0.} Route: IVP; Site: right antecubital; ll1 12:18 Follow up: Response: No adverse reaction; Pain is decreased; RASS: Alert and Calm (0) ll1 Disposition: 02/09/20 12:05 Transfer ordered to [facility]. Diagnosis are Fracture of second cervical vertebra, Fracture of fourth thoracic vertebra, Multiple fractures of ribs, left side. - Reason for transfer: Higher level of care. - Accepting physician is Dr. Limon. - Condition is Stable. - Problem is new. - Symptoms are unchanged. - Notes: incedintal finding: you have a lung nodule. have your primary care doctor arraing for PET scan withen the next 6 month Signatures: Dispatcher [employer] Hilary Zaidi, RN RN Ivonne Ugalde RN RN ss Alzahri, Mohammad, MD MD ma2 Niya Humphreys RN RN ll1 Corrections: (The following items were deleted from the chart) 12:28 12:05 02/09/2020 12:05 Transfer ordered to [facility]. Diagnosis is ll1 Fracture of second cervical vertebra; Fracture of fourth thoracic vertebra; Multiple fractures of ribs, left side. Reason for transfer: Higher level of care. Accepting physician is Dr. Limon. Condition is Stable. Problem is new. Symptoms are unchanged. ma2
--- NOTE | 2020-02-09 12:06 | ER ---
Nurse's Notes [facility] Name: Kota Caldwell Age: 65 yrs Sex: Male : 1955 Arrival Date: 02/09/2020 Time: 08:56 Bed 7 Private MD: Jem Marcos V Diagnosis: Fracture of second cervical vertebra;Fracture of fourth thoracic vertebra;Multiple fractures of ribs, left side Presentation: 02/08 09:12 Chief complaint: Patient states: neck pain and stiffness after falling from a standing ss position 3 days ago. Pt reports that years ago he broke his neck and he is concerned he may have "tweaked" the hardware. C collar placed upon arrival to ED. Also c/o pain to L lateral chest wall. Coronavirus screen: Client denies travel out of the [place] in the last 14 days. At this time, the client does not indicate any symptoms associated with coronavirus-19. Ebola Screen: Patient denies exposure to infectious person. Patient denies travel to an Ebola-affected area in the 21 days before illness onset. Initial Sepsis Screen: Does the patient meet any 2 criteria? No. Patient's initial sepsis screen is negative. Does the patient have a suspected source of infection? No. Patient's initial sepsis screen is negative. Risk Assessment: Do you want to hurt yourself or someone else? Patient reports no desire to harm self or others. Onset of symptoms was February 07, 2020. 09:12 Method Of Arrival: Wheelchair ss 09:12 Acuity: HERMELINDO 3 ss Historical: - Allergies: 09:14 No Known Allergies; ss - PSHx: 09:14 back surgery; ss - Immunization history:: Adult Immunizations up to date. - Social history:: Smoking status: Patient reports the use of cigarette tobacco products, smokes one pack cigarettes per day. - Family history:: not pertinent. Screenin:17 Abuse screen: Denies threats or abuse. Denies injuries from another. Nutritional hb screening: No deficits noted. Tuberculosis screening: No symptoms or risk factors identified. Fall Risk None identified. Assessment: 09:35 General: Appears in no apparent distress. Behavior is calm, cooperative. Pain: Pain hb currently is 9 out of 10 on a pain scale. Neuro: Level of Consciousness is awake, alert, obeys commands, Oriented to person, place, time, situation. Cardiovascular: Capillary refill < 3 seconds Patient's skin is warm and dry. Respiratory: Airway is patent Respiratory effort is even, unlabored, Respiratory pattern is regular, symmetrical. GI: No signs and/or symptoms were reported involving the gastrointestinal system. : No signs and/or symptoms were reported regarding the genitourinary system. EENT: No signs and/or symptoms were reported regarding the EENT system. Derm: Skin is pink, warm \\T\\ dry. Musculoskeletal: Reports neck pain. 10:30 Reassessment: Patient appears in no apparent distress at this time. Patient and/or hb family updated on plan of care and expected duration. Pain level reassessed. Patient is alert, oriented x 3, equal unlabored respirations, skin warm/dry/pink. 11:22 Reassessment: Patient appears in no apparent distress at this time. Patient and/or hb family updated on plan of care and expected duration. Pain level reassessed. Patient is alert, oriented x 3, equal unlabored respirations, skin warm/dry/pink. 11:38 Reassessment: Initiated transfer with [facility]. Spoke with Mray who states ss she will page the doctor de ionizer operator. 12:16 Reassessment: Patient and/or family updated on plan of care and expected duration. Pain ll1 level reassessed. Patient is alert, oriented x 3, equal unlabored respirations, skin warm/dry/pink. Vital Signs: 09:12 BP 149 / 93; Pulse 95; Resp 16; Temp 98.5(TE); Pulse Ox 100% ; Weight 83.91 kg; Height ss 6 ft. 5 in. (195.58 cm); Pain 10/10; 10:17 Pulse 82; Resp 15; Pulse Ox 100% on R/A; hb 11:22 BP 164 / 96; Pulse 84; Resp 16; Pulse Ox 100% ; ll1 12:17 BP 170 / 98; Pulse 86; Resp 16; Pulse Ox 100% ; Pain 6/10; ll1 09:12 Body Mass Index 21.94 (83.91 kg, 195.58 cm) ED Course: 08:56 Patient arrived in ED. mr 08:56 Jem Marcos MD is Private Physician. mr 09:14 Triage completed. ss 09:14 Arm band placed on right wrist. ss 09:15 Jaiden Bello MD is Attending Physician. ma2 09:32 ED physician to see patient. sv 09:50 Inserted saline lock: 20 gauge in right antecubital area, using aseptic technique. sv 10:00 Patient has correct armband on for positive identification. Bed in low position. Call hb light in reach. Side rails up X 1. 10:04 Report given to Niya MURRIETA. sv 10:05 Niya Humphreys RN is Primary Nurse. ll1 10:41 CT C Spine In Process Unspecified. EDMS 10:41 CT Thoracic Spine Wo Cont In Process Unspecified. EDMS 10:41 CT Chest Wo Con In Process Unspecified. EDMS 10:41 CT completed. Patient tolerated procedure well. Patient moved back from CT. bq 12:16 No provider procedures requiring assistance completed. IV discontinued, intact, ll1 bleeding controlled, No redness/swelling at site. Pressure dressing applied. Administered Medications: 09:49 Drug: fentaNYL (PF) 50 mcg {Note: rass1.} Route: IVP; Site: right antecubital; sv 12:19 Follow up: Response: No adverse reaction; Pain is unchanged, physician notified; RASS: 1 Alert and Calm (0) 10:23 Drug: Zofran (Ondansetron) 4 mg Route: IVP; Site: right antecubital; ll1 12:19 Follow up: Response: No adverse reaction ll1 10:24 Drug: Dilaudid 1 mg {Note: RASS 0.} Route: IVP; Site: right antecubital; 1 12:19 Follow up: Response: No adverse reaction; RASS: Alert and Calm (0) ll1 11:41 Drug: Dilaudid 1 mg {Note: RASS 0.} Route: IVP; Site: right antecubital; 1 12:18 Follow up: Response: No adverse reaction; Pain is decreased; RASS: Alert and Calm (0) [facility] Outcome: 12:05 ER care complete, transfer ordered by . ma2 12:16 Transferred to [facility], Transfer form completed. Note: by private [facility] vehicle, c-collar in place. 12:16 Condition: stable 12:16 Instructed on the need for transfer, Demonstrated understanding of instructions. 12:20 Transferred Note: Report given to KEE Charles RN at [facility] ll1 12:28 Patient left the ED. ll1 Signatures: Dispatcher [employer] Hilary Zaidi RN RN sv Jose Maria, Kandice mr Jaret, Ivonne Lieberman RN RN ss Baxter, Heather, RN RN hb Alzahri, Mohammad, MD MD ma2 Lewis, Lynsay, RN RN ll1 Corrections: (The following items were deleted from the chart) 09:50 09:49 fentaNYL (PF) 50 mcg IVP in left antecubital sv sv
[2020-02-12 16:12] VITALS: TEMP 98.5; O2SAT 100
[2020-02-12 16:17] VITALS: BP 170/98
== END 2020-02-09 12:28 | disposition short-term general hospital (02) ==
LOC: ER 08:55
DX: S12.100A Unspecified displaced fracture of second cervical vertebra, initial encounter for closed fracture (principal); S22.049A Unspecified fracture of fourth thoracic vertebra, initial encounter for closed fracture; S22.42XA Multiple fractures of ribs, left side, initial encounter for closed fracture; W19.XXXA Unspecified fall, initial encounter; Y93.9 Activity, unspecified; Y92.9 Unspecified place or not applicable; F17.210 Nicotine dependence, cigarettes, uncomplicated
CPT/HCPCS: 71250; 72125; 72128; 96375; 96374; 99285; J1170; J3010; J2405

== ENCOUNTER 2020-06-25 13:40 | Emergency (ER) | payer OTHER ==
--- OUTSIDE RECORDS SUMMARY | 2020-06-25 13:43 | XMS REPORT | Clinical Summary ---
:1955 Author Organization [facility] Address [address] [place] [id number] Care Team Providers Name Role Phone MD [...] (hearing loss) Hypertension Hyperlipidemia Allergic Visual impairment Encounters Date Type Specialty Care Team Description 06/23/2020 Travel after 06/25/2019 Surgical History Surgery Date Site/Laterality Comments BACK SURGERY Anterior Lumbar Fusion 25 years ago KNEE SURGERY Right knee-Bone chips removed WRIST SURGERY Left Fracture ANKLE FRACTURE SURGERY Left Not Heali ng NECK SURGERY 06/12/2015 - 06/11/2016 Medical History Medical History Date Comments ADHD (attention deficit hyperactivity disorder) Anxiety Arthritis Clotting disorder (HCC) Depression HL (hearing loss) Hypertension Hyperlipidemia Allergic [...] file Not on file Not on file COVID-19 Exposure Response Date Recorded In the last month, have you been in contact with No / Unsure 06/23/2020 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 Last Filed Vital Signs Not on file Plan of Treatment Health Maintenance Due Date Last Done Comments COVID-19 VACCINE (1 of 2) 1972 COLONOSCOPY SCREENING 01/14/2006 SHINGLES VACCINES (#1) 01/14/2006 INFLUENZA VACCINE 01/11/2020 Results Not on fileafter 06/25/2019 Advance Directives For more information, please contact: [phone] Type Date Recorded Patient Web Programmer Explanati on Advance Directives, Living Will and Medical Power of Primary Counselor
--- OUTSIDE RECORDS SUMMARY | 2020-06-25 13:44 | XMS REPORT | Continuity of Care Document ---
:1955 Author Organization [facility] t Address [address] [place] [address] Care Team Providers Name Role Phone Priti SEYMOUR Primary Care Physician CELIA Attending Clinician Unavailable LYNNE Attending Clinician Unavailable Achceline Attending Clinician Unavailable ALIDA Attending Clinician Unavailable CARLOS Attending Clinician Unavailable NORTH Attending Clinician Unavailable VASCULAR Attending Clinician Unavailable KALEIGH Attending Clinician Unavailable Payers Payer Name Policy Type Policy Effective Date Expiration Date Sour ce Number UHC MEDICAREUHC [id number] 2020 [place] MEDICARE 00:00:00 Gn[employer] [id number] /06/2020-PresentHM O Problems Condition Condition Condition Status Onset Resolution Last Treating Co mments Source Name Details Category Date Date Treatment Clinician Date Deep vein Deep vein Disease Active Mary ston thrombosis thrombosis 4-18 Me thodi (DVT) of (DVT) of 00:00: st distal distal 00 vein of vein of left lower left lower extremity extremity Open Open Problem Active Univers fracture fracture ity of of medial [place] malleolus malleolus Phys ici of left of left ans ankle, ankle, type I or type I or II, II, initial initial encounter encounter History of History of Problem Resolve Univers essential essential d ity of hypertens[place]ens[place] on Physici ans Status Status Problem Active Univers post post ity of cervical cervical [place] spinal spinal Physici arthrodesi arthrodesi an s s s Cervical Cervical Problem Active Unive rs myelopathy myelopathy it y of [place] Physici ans Acute left Acute left Problem Active U nivers ankle pain ankle pain it y of [place] Physici ans Pain, Pain, Problem Active Univers foot, foot, ity of chronic, chronic, [place] left left Physici ans Venous Venous Problem Active Univers ulcer ulcer ity of [place] Physici ans Open Open Problem Active Univers displaced displaced ity of tim dumont [place] fracture fracture Physic i of left of left ans tibia tibia Painful Painful Problem Active Univers orthopaedi orthopaedi it y of c hardware c hardware [place] Phys[place] ans Left knee Left knee Problem Active Uni vers pain pain ity of [place] Physici ans Amputation Amputation Problem Active U nivers of leg of leg ity of below below [place] knee, knee, Physici left, left, ans traumatic traumatic Other Other Problem Active Univers closed closed ity of nondisplac nondisplac [place] ed ed Physici fracture fracture ans of second of second cervical cervical vertebra, vertebra, initial initial encounter encounter Cervical Cervical Problem Active Unive rs pain pain ity of (neck) (neck) [place] Physici ans Anxiety Anxiety Disease Active [place] Method[facility] Arthritis Arthritis Disease Active Mary ston Methodi [facility] Depression Depression Disease Active [facility] Methodi st HL HL Disease Active [place] (hearing (hearing Method i loss) loss) st Hypertensi Hypertensi Disease Active [place] on Methodi st Hyperlipid [facility]lipid Disease [facility] Allergic Allergic Disease Active [facility] on Methodi st Visual Visual Disease Active [place] impairment impairment Me odi st Allergies, Adverse Reactions, Alerts Allergy Allergy Status Severity Reaction(s) Onset Inactive Treating Comm ents Source Name Type Date Date Clinician Nsaids Propensi Active On [place] (Non-Gerardo ty to 03 anticoagu Metho di roidal adverse 00:00: lation--x st Anti-Inf reaction 00 arelto lammator s to y Drug) drug Ibuprofe Allergy Active Univers n TABS to drug ity of (finding [place] ) Physici ans Family History Family Member Diagnosis Comments Start Date Stop Date Source Natural brother No Known Problems [facility] Gnosticist Natural [facility] son No Known Problems Chepe Greenist Social History Social Habit Start Date Stop Date Quantity Comments Source Sex Assigned At [place] M ethodist Exposure to Not sure [place] Metho dist SARS-CoV-2 (event) Cigarettes smoked 2016-09-27 2016-09-27 Terrance Tesfaye current (pack per 00:00:00 00:00:00 day) - Reported Tobacco use and 2016-09-27 2016-09-27 Never used Terrance Ramirez ethodist exposure 00:00:00 00:00:00 Alcohol intake 2016-09-27 2016-09-27 Current Terrance Me thodist 00:00:00 00:00:00 non-drinker of alcohol (finding) Smoking Status Start Date Stop Date Source Occasional tobacco smoker [facility] (finding) Physicians Current every day smoker 2016-09-27 00:00:00 Mary Tesfaye Medications Ordered Filled Start Stop Current Ordering Indication Dosage Frequency Signature Comments Components Source Medication Medication Date Date Medication? Clinician (SIG) Name Name Vitamin D3 Vitamin D3 Yes GLADYS Take one Univers 1.25 MG 1.25 MG 5-26 [place] PA tablet it y of (94961 UT) (19130 UT) 00:00: weekly [place] Oral Oral 00 Physici Capsule Capsule ans rivaroxaban Yes 10mg QD Take 10 mg Terrance (XARELTO) 4-18 by mouth Method i 10 mg 09:05: daily. st tablet 54 atorvastati Yes 20mg QD Take 20 mg Terrance n (LIPITOR) 4-18 by mouth Meth sherry 20 MG 09:05: daily. st tablet 54 LYRICA 75 Yes Terrance mg capsule 4-11 Methodi 00:00: st 00 HYDROcodone Yes Chepe n -acetaminop 3-31 Methodi hen (NORCO) 00:00: st 10-325 mg 00 per tablet traZODone Yes Terrance (DESYREL) 3-30 Methodi 150 MG 00:00: st tablet 00 sertraline Yes Terrance (ZOLOFT) 3-30 Methodi 100 MG 00:00: st tablet 00 diazePAM Yes Terrance (VALIUM) 5 3-30 Methodi MG tablet 00:00: st 00 amphetamine Yes Chepe n -dextroamph 3-30 Methodi etamine XR 00:00: st (ADDERALL 00 XR) 30 MG 24 hr capsule traMADol Yes Terrance (ULTRAM) 50 3-26 Methodi mg tablet 00:00: st 00 sodium Yes Terrance chloride 3-22 Methodi 0.9% for 00:00: st IRRIGATION 00 (NS) 0.9 % irrigation gentamicin Yes [place] (GARAMYCIN) 3-19 Methodi 0.1 % 00:00: st ointment 00 fluticasone Yes [place] n (FLONASE) 3-02 Methodi 50 00:00: st mcg/actuati 00 on nasal spray omeprazole Yes [place] (PriLOSEC) 1-13 Methodi 20 MG 00:00: st capsule 00 lisinopril Yes [place] (PRINIVIL,Z 1-13 Methodi ESTRIL) 40 00:00: st mg tablet 00 gabapentin Yes [place] (NEURONTIN) 1-13 Methodi 600 mg 00:00: st tablet 00 ranitidine 2015-06 Yes [place] (ZANTAC) 2-30 Methodi 150 MG 00:00: st tablet 00 Lyrica 25 Lyrica 25 Yes Arnaldo 1 Q0.3333D TAKE 1 Univers MG Oral MG Oral 03 Achor M.D. CAPSULE 3 ity of Capsule Capsule 00:00: TIMES [place] 00 DAILY Physici ans traMADol traMADol 2010-06 Yes GLADYS TAKE 1 U nivers HCl - 50 MG HCl - 50 MG 07 [place] PA TABLET ity of Oral Tablet Oral Tablet 00:00: EVERY 6 [place] 00 HOURS Physici NEEDED. ans HYDROcodone HYDROcodone 2010-06 Yes GLADYS TAKE 1 Univers -Acetaminop -Acetaminop -07 [place] PA TABLET ity of hen 10-325 hen 10-325 00:00: EVERY 4 [place] MG Oral MG Oral 00 HOURS Physi ci Tablet Tablet NEEDED FOR ans PAIN. Procedures Procedure Date / Time Performed Performing Clinician [facility] Physical Therapy 2020-05-22 00:00:00 [facility] Physicians MRI Spine cervical wo 2018-08-15 00:00:00 [facility] contrast [id number] Physicians [U] XRAY BONE LENGTH 2018-05-28 00:00:00 [facility] STUDY-SCANOGRAM [id number] Physicians [U] XRAY KNEE 1 OR 2 2018-05-28 00:00:00 [facility] [place] [facility] [id number] Physicians [U] XRAY KNEE 1 OR 2 2018-05-25 00:00:00 [facility] [place] [facility] [id number] Physicians [U] XRAY KNEE 1 OR 2 2017-10-13 00:00:00 [facility] [place] [facility] [id number] Physicians [U] XRAY KNEE 1 OR 2 2017-09-29 00:00:00 [facility] [place] [facility] V[facility] LEFT 71923 Physicians [U] XRAY KNEE 1 OR 2 2017-07-10 00:00:00 [facility] VWS LEFT 55016 Physicians [U] XRAY KNEE 1 OR 2 2017-07-04 00:00:00 [facility] [id number] Physicians History of Ankle [facility] Physicians Plan of Care Planned Activity Planned Date Details Comments Source Future Scheduled 2020-01-11 INFLUENZA VACCINE [place] [facility] Test 00:00:00 [code = INFLUENZA VACCINE] Diagnostic Test 2018-06-25 [U] XRAY KNEE 1 OR 2 Univ [facility] Pending 00:00:00 VWS LEFT 94062 [code Physici ans = [id number]] Future Scheduled 2006-01-14 COLONOSCOPY [place] Met [facility]odist Test 00:00:00 SCREENING [code = COLONOSCOPY SCREENING] Future Scheduled 2006-01-14 SHINGLES VACCINES [place] [facility] Test 00:00:00 (#1) [code = SHINGLES VACCINES (#1)] Future Scheduled 1972 COVID-19 VACCINE (1 [place] [facility] Test 00:00:00 of 2) [code = COVID-19 VACCINE (1 of 2)] Encounters Start End Encounter Admission Attending Care Care Encounter Source Date/Time Date/Time Type Type Clinicians Facility Department ID 2020-05-22 2020-05-22 Appointmen NAKUL YANG Orthopedics [id number] Univers 10:20:00 10:20:00 t; ELVI YANG at [facility] ELVI Pulido [facility] Tess Grant Medicine Physici [place] [facility] [place] 2020-04-03 2020-04-03 Appointmen NAKUL YANG [facility] [id number] Univers 11:40:00 11:40:00 t; ELVI YANG ity of [place] M.D. [place], M.D. Physici ans 2020-02-14 2020-02-14 Appointmen NAKUL YANG Orthopedics [id number] Univers 11:45:00 11:45:00 t; ELVI YANG at [facility] Kevin Grant M.D. Orthopedic Physi ci and Spine ans [facility] 2019-04-01 2019-04-01 Appointmen LNYNE [facility] [id number] Univers 12:45:00 12:45:00 t; GLADYS BATISTA PA ity of MARILYN GRAH[place] Physici ans 2019-04-01 2019-04-01 AppointNAKUL Dong [facility] [id number] Univers 11:00:00 11:00:00 t; GLADYS BATISTA PA ity of [place] Physici ans 2019-03-21 2019-03-21 Appointmen Castillo [facility] [id number] Univers 07:00:00 07:00:00 t; Arnaldo Chogn ity of [place], M.D. [place] M.D. Physici ans 2019-03-21 2019-03-21 AppointNAKUL Heredia [facility] [id number] Univers 07:00:00 07:00:00 t; Arnaldo Chong ity of [place], M.D. [place] M.D. Physici ans 2019-03-21 2019-03-21 Outpatient [facility] [id number] [facility] 06:00:00 06:00:00 2019-02-25 2019-02-25 Appointalexi BATISTA [facility] [id number] Univers 10:15:00 10:15:00 t; GLADYS BATISTA PA ity of [place] Physici ans 2018-08-15 2018-08-15 AppointNAKUL Mckeon [facility] [id number] Univers 14:00:00 14:00:00 t; Tess CADENA [facility] of Rudy IRWIN M.D. Physi ci ans 2018-05-28 2018-05-28 AppointNAKUL Dong Orthopedics [id number] Univers 11:45:00 11:45:00 t; GLADYS BATISTA PA ity of [place] Physici ans 2018-04-30 2018-04-30 AppointNAKUL Dong Orth[facility] [id number] Univers 11:00:00 11:00:00 t; GLADYS BATISTA PA itdoug of [place] Physici ans 2017-10-16 2017-10-16 Appointmen LYNNE [facility] Orthopedics [id number] Univers 09:30:00 09:30:00 t; GLADYS BATISTA PA ity of GLADYS, PA [place] Physici ans 2017-10-09 2017-10-09 Appointalexi BATISTA [facility] Orthopedics [id number] Univers 10:45:00 10:45:00 t; GLADYS BATISTA PA ity of GLADYS, PA [place] Physici ans 2017-07-10 2017-07-10 Appointmen LYNNE [facility] [id number] Univers 10:45:00 10:45:00 t; GLADYS BAT[place]A [place] ity of [place] [facility] [place] [address] Physici ans 2017-04-17 2017-04-17 Appointmen LYNNE [facility] [id number] Univers 09:30:00 09:30:00 t; GLADYS BATISTA PA ity of GLADYS, PA [place] Physici ans 2017-01-27 2017-01-27 Appointalexi BATISTA [facility] [id number] Univers 12:00:00 12:00:00 t; GLADYS BATISTA PA ity of GLADYS, PA [place] Physici ans 2017-01-20 2017-01-20 Appointmen LYNNE, [facility] [id number] Univers 11:30:00 11:30:00 t; GLADYS BATISTA PA ity of GLADYS, PA [place] Physici ans 2016-11-21 2016-11-21 Appointmen LYNNE, [facility] [id number] Univers 10:30:00 10:30:00 t; GLADYS BATISTA PA ity of GLADYS, PA [place] Physici ans 2016-11-04 2016-11-04 Appointmen LYNNE, [facility] [id number] Univers 10:30:00 10:30:00 t; GLADYS BATISTA, PA ity of GLADYS, PA [place] Physici ans 2016-10-26 2016-10-26 Appointmen CARLSO [facility] [id number] Univers 10:30:00 10:30:00 t; JOHANA GONZALEZ i ty of Tess VAUGHN [place] Tess Physici ans 2016-10-25 2016-10-25 Appointmen LYNNE [facility] [id number] Univers 10:00:00 10:00:00 t; GLADYS BATISTA PA ity of [place] Physici ans 2016-10-13 2016-10-13 Appointmen Castillo, UTP UTP [id number] Univers 08:00:00 08:00:00 t; Arnaldo Chong ity of [place], M.D. [facility].DDinesh Physici ans 2016-09-20 2016-09-20 Appointmen CARLOS, UTP UTP [id number] Univers 11:00:00 11:00:00 t; JOHANA GONZALEZ i ty of DANIELLE, M.D. [facility].DDinesh Physici ans 2016-09-09 2016-09-09 Appointmen LYNNE, UTP UTP [id number] Univers 12:30:00 12:30:00 t; GLADYS BATISTA PA ity of [place] Physici ans 2016-08-25 2016-08-25 Appointmen NORTH, UTP UTP [id number] Univers 12:00:00 12:00:00 t; DIAMANTE KAT ity of STUART, M.D. [facility].DDinehs Physici ans 2016-08-23 2016-08-23 Appointmen VASCULAR, UTP UTP [id number] Univers 10:00:00 10:00:00 t; [facility] christi brooks VASCULAR, [facility] Physici ans 2016-08-23 2016-08-23 Appointmen NORTH, UTP UTP [id number] Univers 10:00:00 10:00:00 t; DIAMANTE KAT ity of ST[place], M.D. [place] .Kim Physici ans 2016-08-15 2016-08-15 Appointmen KALEIGH, UTP UTP [id number] Univers 16:00:00 16:00:00 t; christi PEDROZA M.D. [place] Jordan PEDROZA M.D. ans 2016-08-01 2016-08-01 Appointmen KALEIGH, UTP UTP [id number] Univers 14:45:00 14:45:00 t; christi PEDROZA M.D. [place] Jordan PEDROZA M.D. ans 2016-07-14 2016-07-14 Appointmen CELIA, NAKUL UTP [id number] Univers 12:45:00 12:45:00 t; ELVI YANG ity of ELVI Grant M.D. Physici ans 2016-03-01 2016-03-01 Appointmen CELIA, NAKUL UTP [id number] Univers 12:45:00 12:45:00 t; ELVI YANG ity of ELVI Grant M.D. Physici ans 2016-01-20 2016-01-20 Appointmen NAKUL YANG UTP [id number] Univers 12:50:00 12:50:00 t; ELVI YANG ity of ELVI Grant M.D. Physici ans 2016-01-19 [facility] [id number] Univers 11:50:00 11:50:00 t; ELVI YANG ity of ELVI Grant M.D. Physici ans 2016-01-19 2016-01-[facility] UTP [id number] Univers 11:45:00 11:45:00 t; ELVI YANG ity of ELVI Grant M.D. Physici ans 2015-10-20 2015-10-[facility] NAKUL UTP [id number] Univers 11:50:00 11:50:00 t; ELVI YANG ity of ELVI Grant M.D. Physici ans 2015-09-08 2015-09-08 [facility] C[facility]IA[facility] NAKUL UTP [id number] Univers 11:50:00 11:50:00 t; ELVI YANG ity of ELVI Grant M.D. Physici ans 2015-08-18 2015-08-18 [facility] UTP [id number] Univers 12:40:00 12:40:00 t; ELVI YANG ity of ELVI Grant M.D. Physici ans Results Test Description Test Time Test Comments Results Result Sour e Comments [U] XRAY KNEE 1 2018-04-30 Images Universit y of [place] 2 VWS LEFT 11:32:00 acquired, not [place] [id number] reported on Physicians this accession number.
--- OUTSIDE RECORDS SUMMARY | 2020-06-25 13:45 | XMS REPORT | Summary of Care ---
:1955 Author Name Adriano Crystal Address [facility] Unavailable , Care Team Providers Name Role Phone Kelsie Pulido Unavailable Unavailable LYNNE SANDERS Unavailable Unavailable CELIA Pulido Unavailable Unavailable ULI SEYMOUR Unavailable Unavailable CELIA SEYMOUR Unavailable Unavailable ULI SEYMOUR, Michael Unavailable Unavailable KELSIE SEYMOUR Unavailable Unavailable Unavailable Unavailable Unavailable Functional Status Name Dates Details Functional status health issues are not documented Status: Name Dates Details Cognitive status health issues are not documented Status: Problems Name Dates Details Status post cervical spinal arthrodesis (V45.4, Z98.1) Status: Active Cervical myelopathy (721.1, G95.9) Statu s: Active Left lateral ankle pain (719.47, M25.572) Status: Active Pain, foot, chronic, left (729.5, M79.672) Status: Active Acute left ankle pain (719.47, M25.572) Status: Active Venous ulcer (707.9, I83.009) Status: Ac tive Open fracture of medial malleolus of lef t ankle, type I or II, initial encounter Status: Active Open displaced pilon fracture of left tibia (824.9, S82.872B ) Status: Active Painful orthopaedic hardware (996.78, T84.84XA) Status: Active Left knee pain (719.46, M25.562) Status: Active Amputation of leg below knee, left, 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 Quantity: 60 Refills: 0 GLADYS MUÑIZ Start : 18-Apr-2011 Active traMADol HCl - 50 MG Oral Tablet TAKE 1 TABLET EVERY 6 HOURS NEEDED. Quantity: 40 Refills: 0 GLADYS MUÑIZ Start : 18-Apr-2011 Active Lyrica 25 MG Oral Capsule TAKE 1 CAPSULE 3 TIMES DAILY Quantity: 42 Refills: 0 Arnaldo Chong M.D. Start : 14-Jun-2011 Active Vitamin D3 1.25 MG (05550 [facility]) Oral Capsule Take one tablet weekly Quantity: 8 Refills: 0 GLADYS MUÑIZ Start : 04-Nov-2016 Active Allergies and Adverse Reactions Name Dates Details Ibuprofen TABS (Allergy) Status: Active Past Medical History Name Dates Details History of essential hypertension (V12.59, Z86.79) Status: Resolved Procedures Procedure Dates Details Physical Therapy Date: 22-May-2020 History of Ankle Surgery Completed Immunization Name Dates Details Immunizations not documented Social History Name Dates Details - Status: Name Dates Details Occasional tobacco smoker (finding) Vital Signs Date Test Result Details No Known Vitals to report Results Date Description Value Details Results not documented Plan of Care Name Dates Details Planned Observations Planned Goals not documented Planned Encounters Pain Management Referral Interventions Provided Labs/Procedures/ImagingPhysical Therapy; To Be Done: 22 May 2020 Instructions Name Dates Details Instructions not documented Encounters Appointment; GLADYS BATISTA PA On: 28-May-2018 11:45 Encounter Diagnosis: Problem not documented Appointment; SURINDER IRWIN M.D. On: 15-Aug-2018 14:00 Encounter Diagnosis: Problem not documented Appointment; GLADYS BATISTA PA On: 25-Feb-2019 10:15 Encounter Diagnosis: Problem not documented Appointment; Arnaldo Chong M.D. On: 21-Mar-2019 7:00 Encounter Diagnosis: Problem not documented Appointment; Arnaldo Chong M.D. On: 21-Mar-2019 7:00 Encounter Diagnosis: Problem not documented Appointment; GLADYS BATISTA PA On: 01-Apr-2019 11:00 Encounter Diagnosis: Problem not documented Appointment; GLADYS BATISTA PA On: 01-Apr-2019 12:45 Encounter Diagnosis: Problem not documented Appointment; ELVI YANG M.D. On: 14-Feb-2020 1 1:45 Encounter Diagnosis: Problem not documented Appointment; ELVI YANG M.D. On: 03-Apr-2020 11:40 Encounter Diagnosis: Problem not documented Appointment; ELVI YANG M.D. On: 22-May-2020 10:20 Encounter Diagnosis: Problem not documented
[2020-06-25] MEDS ORDERED: FENTANYL CITR 100 MCG/2 ML ONE (14:59)
--- NOTE | 2020-06-25 15:27 | RAD REPORT ---
EXAM DESCRIPTION: CT - Head C Spine Cap Wo Con - 06/25/2020 2:54 pm TECHNIQUE: Computed axial tomography of the head and cervical spine was obtained. Coronal and sagitt al reconstruction was performed Computed axial tomography of the chest, abdomen and pelvis was obtained. Contrast was not requested. All CT scans are performed using dose optimization technique as appropriate and may include automated exposure control or mA/KV adjustment according to patient size. CLINICAL HISTORY: Head and neck injury with chest and abdominal pain status post fall COMPARISON: CT 2011, 2014, 2015 and 2019 FINDINGS: Right frontal scalp swelling. An intracranial bleed is not seen. The ventricles are normal in caliber. An extra-axial fluid collection is not noted. . Fluid within the sinuses/mastoids is not seen. A late subacute fracture involves the base of the dens. There has been resorption of bone at the formerly [facility] ture site. Fracture fragments are by 5 millimeters. Postsurgical changes involve C3-T1. No dislocation. The evaluation of mediastinum, basim, vessels, solid organs and bowel are limited secondary to the lac k of contrast administration. A mediastinal hematoma is not noted. A pleural effusion is not seen. A lung contusion is not present. . Multiple old left rib fractures. Calcified hilar and calcified mediastinal lymph nodes. Mildly dis placed fractures involve the posterior eighth, ninth and tenth ribs. Mildly displaced fracture involv es the anterior right six rib The liver,spleen, pancreas, adrenals,kidneys and bladder do not demonstrate a traumatic injury. . Fatty liver. IVC filter in place. Small nonobstructing right renal calculus. 4.1 centimeter low-den sity mass right kidney nonspecific without IV contrast. Old pelvic fractures. Postsurgical changes in volve the lumbar spine IMPRESSION: 1. No acute intracranial abnormality is seen. 2. Late subacute fracture involves the base of the dens. There has been resorption of bone at the [facility] cture site. Fracture fragments by 5 millimeters 3. Mildly displaced right rib fractures
[2020-06-25 15:34] LABS: Protime INR 0.94
[2020-06-25 15:35] LABS: Absolute Lymphocytes (CBC) 1.6 K/uL (0.7-4.9); Basophils % 0.6 % (0-1.3); Lymphocytes % 26.8 % (15.3-44.8); MPV 8.7 fL (7.6-11.3)
[2020-06-25 15:39] LABS: BUN Blood Urea Nitrogen 10 mg/dL (7-18); Bicarbonate 25 mmol/L (21-32); Glucose Level 80 mg/dL (74-106); Potassium 3.8 mmol/L (3.5-5.1); Sodium Level 139 mmol/L (136-145)
[2020-06-25] MEDS ORDERED: HYDROMORPHONE HCL 0.5 MG/0.5 ML INJ ONE (16:58)
--- NOTE | 2020-06-25 17:02 | ER ---
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 ca1 Reports neck pain, both shoulder pain, abrasion and bruising on R forehead, bruise around R eye. Pt on Eliquis. Chief complaint:. Chief complaint: EMS states: Pt reports falling 2 days ago, C/O R shoulder pain with numbness of fingers. Coronavirus screen: Client denies travel out of the [place] in the last 14 days. At this time, the client does not indicate any symptoms associated with coronavirus-19. Ebola Screen: Patient negative for fever greater than or equal to 101.5 degrees Fahrenheit, and additional compatible Ebola Virus Disease symptoms Patient denies exposure to infectious person. Patient denies travel to an Ebola-affected area in the 21 days before illness onset. No symptoms or risks identified at this time. Initial Sepsis Screen: Does the patient meet any 2 criteria? No. Patient's initial sepsis screen is negative. Does the patient have a suspected source of infection? No. Patient's initial sepsis screen is negative. Risk Assessment: Do you want to hurt yourself or someone else? Patient reports no desire to harm self or others. Onset of symptoms was June 24, 2020. 13:48 Method Of Arrival: EMS: [facility] ca1 13:48 Acuity: HERMELINDO 3 ca1 Historical: - Allergies: 13:55 No Known Allergies; ca1 - Home Meds: 13:55 Eliquis oral oral [Active]; Lisinopril Oral [Active]; ca1 - PMHx: 13:55 Hypertension; Lupus; DVT; ca1 - PSHx: 13:55 back surgery; L leg amputation; ca1 - Immunization history:: Flu vaccine is not up to date. - Social history:: Smoking status: Patient reports the use of cigarette tobacco products, smokes one pack cigarettes per day. Screenin:00 Abuse screen: Denies threats or abuse. Denies injuries from another. Nutritional zb screening: No deficits noted. Tuberculosis screening: No symptoms or risk factors identified. Fall Risk No fall in past 12 months (0 pts). Secondary diagnosis (15 points) impaired mobility, IV access (20 points). Ambulatory Aid- Crutches/Cane/Walker (15 pts). Gait- Weak (10 pts.). Mental Status- Oriented to own ability (0 pts). Total Guy Fall Scale indicates Low Risk Score (25-44 pts). Fall prevention measures have been instituted. Side Rails Up X 2 Placed close to Nursing Station Frequent Obs/Assesments occuring As available Patient and Family Educated on Fall Prevention Program and strategies. Assessment: 14:50 General: Appears in no apparent distress. uncomfortable, Behavior is calm, cooperative, zb appropriate for age. Pain: Complains of pain in Generalized Pain currently is 8 out of 10 on a pain scale. Quality of pain is described as tingling, throbbing, numb. Neuro: Level of Consciousness is awake, alert, obeys commands, Oriented to person, place, time, situation, Batching Operator are weak bilaterally Moves all extremities. Gait is unsteady, Speech is normal, Facial symmetry appears normal, Pupils are PERRLA, Tingling in generalized Burning in generalized Numbness in generalized. Cardiovascular: Patient's skin is warm and dry. Respiratory: Airway is patent Respiratory effort is even, unlabored, Respiratory pattern is regular, symmetrical. GI: No signs and/or symptoms were reported involving the gastrointestinal system. GI: Reports. : Reports urinary frequency. : Reports incontinence. EENT: No signs and/or symptoms were reported regarding the EENT system. Derm: Skin is intact, is healthy with good turgor, Skin is dry, Skin is normal, Skin temperature is warm Bruising that is dark purple, on right eye. Derm: Skin. Musculoskeletal: Amputation of left leg . Circulation, motion, and sensation intact. Capillary refill < 3 seconds, in bilateral fingers. Range of motion: limited in all extremities. 15:50 Reassessment: Patient appears in no apparent distress at this time. Patient and/or zb family updated on plan of care and expected duration. Pain level reassessed. Patient is alert, oriented x 3, equal unlabored respirations, skin warm/dry/pink. c/o pain notified ECP. 16:50 Reassessment: Patient appears in no apparent distress at this time. Patient and/or zb family updated on plan of care and expected duration. Pain level reassessed. Patient is alert, oriented x 3, equal unlabored respirations, skin warm/dry/pink. c/o pain notified ECP. 17:50 Reassessment: Patient appears in no apparent distress at this time. Patient and/or zb family updated on plan of care and expected duration. Pain level reassessed. Patient is alert, oriented x 3, equal unlabored respirations, skin warm/dry/pink. c/o of pain notified ECP. 18:55 Reassessment: Patient appears in no apparent distress at this time. Patient and/or zb family updated on plan of care and expected duration. Pain level reassessed. Patient is alert, oriented x 3, equal unlabored respirations, skin warm/dry/pink. patient states pain medication help a little bit reduced. Report given to EMS. patient transferred by [facility] ambulance. Vital Signs: 13:48 BP 159 / 101; Pulse 91; Resp 16 S; Temp 97.2(TE); Pulse Ox 99% on R/A; Weight 77.11 kg ca1 (R); Height 6 ft. 4 in. (193.04 cm) (R); Pain 10/10; 14:16 BP 175 / 109; Pulse 88; Resp 18; Pulse Ox 100% on R/A; zb 15:00 BP 169 / 107; Pulse 90; Resp 16; Pulse Ox 100% ; zb 16:00 BP 158 / 94; Pulse 92; Resp 18; Pulse Ox 98% on R/A; zb 13:48 Body Mass Index 20.69 (77.11 kg, 193.04 cm) ca1 ED Course: 13:45 Patient arrived in ED. ca1 13:53 Triage completed. ca1 13:55 Arm band placed on right wrist. ca1 14:00 Patient has correct armband on for positive identification. zb 14:16 Claudio Fontana PA is PHCP. cp 14:16 Dontae Ng MD is Attending Physician. cp 14:43 Blanca Roman RN is Primary Nurse. zb 14:54 CT Traumagram (Head C Spine CAP wo con) In Process Unspecified. EDMS 16:00 Transfer center at [facility] contacted to initiate transfer per MARILYN em1 instruction. 16:18 Pt accepted to [facility] ER. em1 17:15 [facility] called to secure transport for this pt. [facility] agreed and em1 notified us that arrival time to our facility would be 50 minutes to an hour. Due to unavailability of local EMS services, ETA was accepted. 18:56 No provider procedures requiring assistance completed. Patient transferred, IV remains zb in place. Administered Medications: 14:46 Drug: fentaNYL (PF) 25 mcg Route: IVP; Site: right antecubital; zb 15:30 Follow up: Response: No adverse reaction; Pain is unchanged, physician notified zb 15:30 Drug: Dilaudid 0.5 mg Route: IM; Site: right deltoid; zb 19:07 Follow up: Response: No adverse reaction; Pain is decreased zb 16:10 Drug: fentaNYL (PF) 25 mcg Route: IVP; Site: right antecubital; zb 16:30 Follow up: Response: No adverse reaction; Pain is unchanged, physician notified zb 18:05 Drug: Dilaudid 1 mg Route: IM; Site: right deltoid; zb 19:08 Follow up: Response: No adverse reaction; Pain is increased zb Outcome: 17:02 ER care complete, transfer ordered by . cp 18:56 Transferred by ground EMS to [facility], Note: by [facility] ambulance zb 18:56 Condition: stable 18:56 Instructed on the need for transfer. 19:08 Patient left the ED. zb Signatures: Dispatcher [employer] Richie Beltran em1 Claudio Fontana PA PA cp Acob, Cheryl RN RN ca1 Blanca Roman RN RN zb Corrections: (The following items were deleted from the chart) 14:08 13:48 Acuity: HERMELINDO 4 ca1 ca1
--- NOTE | 2020-06-25 17:03 | EDPHYS ---
Physician Documentation [facility] Name: Kota Caldwell Age: 65 yrs Sex: Male : 1955 Arrival Date: 06/25/2020 Time: 13:45 Bed 28 Private MD: ED Physician Dontae Ng HPI: 06/25 14:35 This 65 yrs old Male presents to ER via EMS with complaints of Shoulder Pain, cp Fall Injury. 14:35 The patient or guardian complains of an injury, pain, that is acute. left shoulder and cp right shoulder. Context: resulted from a fall, The patient reports no decreased range of motion. Onset: The symptoms/episode began/occurred yesterday. Associated signs and symptoms: Pertinent positives: neck pain, Numbness in right arm and left arm severe pain, Weakness in right arm and left arm Pertinent negatives: abdominal pain, chest pain, diaphoresis. 14:35 Severity of symptoms: in the emergency department the symptoms are unchanged, despite cp home interventions. Patient presents via EMS and in c-collar after reported most recent fall yesterday. Patient reports he takes prescribed Eliquis and lost his balance yesterday causing him to fall. Patient reports history of cervical spine fracture from fall last year and that he has been having intermittent falls since. Patient reports increasing pain and numbness to bilateral arms and hands since last years fall. Historical: - Allergies: 13:55 No Known Allergies; ca1 - Home Meds: 13:55 Eliquis oral oral [Active]; Lisinopril Oral [Active]; ca1 - PMHx: 13:55 Hypertension; Lupus; DVT; ca1 - PSHx: 13:55 back surgery; L leg amputation; ca1 - Immunization history:: Flu vaccine is not up to date. - Social history:: Smoking status: Patient reports the use of cigarette tobacco products, smokes one pack cigarettes per day. ROS: 14:40 Constitutional: Negative for body aches, chills, fever, poor PO intake. cp 14:40 Eyes: Negative for injury, pain, redness, and discharge. cp 14:40 Neck: Positive for pain with movement, pain at rest. 14:40 Cardiovascular: Negative for chest pain, edema, palpitations. 14:40 Respiratory: Negative for cough, shortness of breath, wheezing. 14:40 Abdomen/GI: Negative for abdominal pain, nausea, vomiting, and diarrhea. 14:40 Back: Positive for pain at rest, pain with movement. 14:40 Neuro: Positive for numbness, weakness, of the right hand, left hand, right arm and left arm, Negative for altered mental status, headache, loss of consciousness, syncope. 14:40 All other systems are negative. Exam: 06/24 14:45 Constitutional: The patient appears in no acute distress, alert, awake, cp non-diaphoretic, non-toxic, well developed, frail. 14:45 Head/face: Noted is abrasion(s), that are mild, of the forehead, ecchymosis, that is cp mild, of the right eye, swelling, that is mild, of the forehead and right eye, Sinus tenderness, is not appreciated. 14:45 Eyes: Pupils: equal, round, and reactive to light and accomodation, Extraocular movements: intact throughout, Conjunctiva: normal, no exudate, no injection, Sclera: no appreciated abnormality, Lids and lashes: appear normal, bilaterally. 14:45 ENT: External ear(s): are unremarkable, Nose: is normal, Posterior pharynx: Airway: no evidence of obstruction, patent. 14:45 Neck: C-spine: C-collar placed [employer]. 14:45 Chest/axilla: Inspection: normal, Palpation: is normal, no crepitus, no tenderness. 14:45 Cardiovascular: Rate: normal, Rhythm: regular, Pulses: Pulses are 2+ in right radial artery and left radial artery. Edema: is not appreciated, JVD: is not appreciated. 14:45 Respiratory: the patient does not display signs of respiratory distress, Respirations: normal, no use of accessory muscles, no retractions, labored breathing, is not present, Breath sounds: are clear throughout, no decreased breath sounds, no stridor, no wheezing. 14:45 Abdomen/GI: Inspection: abdomen appears normal, Bowel sounds: active, all quadrants, Palpation: abdomen is soft and non-tender, in all quadrants. 14:45 Back: pain, that is moderate, of the thoracic area and lumbar area, ROM is painful, with all movement. 14:45 Musculoskeletal/extremity: left below the knee amputation. 14:45 Neuro: Orientation: to person, place \T\ time. Mentation: is normal, Motor: moves all fours, complaint evaluation officer strength equal and symmetric with subjective weakness bilaterally, Sensation: pin prick is decreased in the right hand, left hand, right arm and left arm, light touch is decreased in the right hand, left hand, right arm and left arm. Vital Signs: 06/25 13:48 BP 159 / 101; Pulse 91; Resp 16 S; Temp 97.2(TE); Pulse Ox 99% on R/A; Weight 77.11 kg ca1 (R); Height 6 ft. 4 in. (193.04 cm) (R); Pain 10/10; 14:16 BP 175 / 109; Pulse 88; Resp 18; Pulse Ox 100% on R/A; zb 15:00 BP 169 / 107; Pulse 90; Resp 16; Pulse Ox 100% ; zb 16:00 BP 158 / 94; Pulse 92; Resp 18; Pulse Ox 98% on R/A; zb 13:48 Body Mass Index 20.69 (77.11 kg, 193.04 cm) ca1 MDM: 14:17 Patient medically screened. cp 15:00 Differential diagnosis: multiple trauma, cervical stenosis, spinal fracture, cp intracranial bleed. 16:18 Physician consultation: was contacted at 16:18, regarding regarding transfer, to [facility]. patient's condition, spoke with DR Humphreys, neurosurgery, requests transfer to DR Khan. 16:20 Data reviewed: vital signs, nurses notes, lab test result(s), radiologic studies, CT cp scan, I have discussed the patient's presentation/case with the attending Emergency Department Physician; and as a result, I will transfer patient. 16:20 Counseling: I had a detailed discussion with the patient and/or guardian regarding: the historical points, exam findings, and any diagnostic results supporting the discharge/admit diagnosis, lab results, radiology results, the need to transfer to another facility, [facility] does not immediately have the required specialist. Response to treatment: the patient's symptoms have mildly improved after treatment. 06/25 14:33 Order name: Basic Metabolic Panel; Complete Time: 15:48 cp 06/25 14:33 Order name: CBC with Diff; Complete Time: 15:40 cp 06/25 14:33 Order name: Type And Screen; Complete Time: 16:08 cp 06/25 14:33 Order name: PT-INR; Complete Time: 15:40 06/25 14:33 Order name: Ptt, Activated; Complete Time: 15:40 06/25 18:57 Order name: ABO/RH no charge EDOR 06/25 14:33 Order name: CT Traumagram (Head C Spine CAP wo con); Complete Time: 15:40 06/25 16:08 Interpretation: Report reviewed. 06/25 14:33 Order name: Labs collected and sent; Complete Time: 16:10 cp Administered Medications: 14:46 Drug: fentaNYL (PF) 25 mcg Route: IVP; Site: right antecubital; zb 15:30 Follow up: Response: No adverse reaction; Pain is unchanged, physician notified zb 15:30 Drug: Dilaudid 0.5 mg Route: IM; Site: right deltoid; zb 19:07 Follow up: Response: No adverse reaction; Pain is decreased zb 16:10 Drug: fentaNYL (PF) 25 mcg Route: IVP; Site: right antecubital; zb 16:30 Follow up: Response: No adverse reaction; Pain is unchanged, physician notified zb 18:05 Drug: Dilaudid 1 mg Route: IM; Site: right deltoid; zb 19:08 Follow up: Response: No adverse reaction; Pain is increased zb Disposition: 18:00 Chart complete. 06/26 05:53 Co-signature as Attending Physician, Dontae Ng MD I agree with the assessment and kdr plan of care. Disposition: 06/25/20 17:02 Transfer ordered to [facility]. Diagnosis are Fall on same level from slipping, tripping and stumbling, Fracture of second cervical vertebra - subacute with 5 mm seperation, Weakness - upper extremities, Paresthesia of skin - upper extremities. - Reason for transfer: Higher level of care. - Accepting physician is DR Khan. - Condition is Fair. - Problem is new. - Symptoms have improved. Signatures: Dispatcher [employer] EDOR Dontae Ng MD MD kdr Page, Corey, PA PA cp Reta Arevalo RN Blanca Holliday RN RN zb Corrections: (The following items were deleted from the chart) 06/25 14:37 14:30 Head C Spine MPR Wo Con+CT.RAD.BRZ ordered. EDMS EDMS 14:37 14:30 Thoracic Spine WO Cont+CT.RAD.BRZ ordered. EDOR EDMS 16:51 06/24 14:35 This 65 yrs old Male presents to ER via EMS with complaints of cp Shoulder Pain, Fall Injury. cp 06/25 16:51 06/24 14:35 The patient or guardian complains of an injury, pain, that is acute, cp cp 06/25 16:51 06/24 14:35 left shoulder and right shoulder cp cp 06/25 16:51 06/24 14:35 Context: resulted from a fall, The patient reports no decreased range of cp motion. cp 06/25 16:51 06/24 14:35 Onset: The symptoms/episode began/occurred yesterday, cp cp 06/25 16:51 06/24 14:35 Associated signs and symptoms: Pertinent positives: neck pain, Numbness in cp right arm and left arm severe pain, Weakness in right arm and left arm Pertinent negatives: abdominal pain, chest pain, diaphoresis, cp 06/25 16:56 06/24 14:35 Severity of symptoms: in the emergency department the symptoms are cp unchanged, despite home interventions, cp 06/25 16:56 06/24 14:35 Patient presents via EMS and in c-collar after reported most recent fall cp yesterday. Patient reports he takes prescribed Eliquis and lost his balance yesterday causing him to fall. Patient reports history of cervical spine fracture from fall last year and that he has been having intermittent falls since. Patient reports increasing pain and numbness to bilateral arms and hands since last years fall. cp 06/25 19:08 17:02 06/25/2020 17:02 Transfer ordered to [facility]. Diagnosis is Fall zb on same level from slipping, tripping and stumbling; Fracture of second cervical vertebra - subacute with 5 mm seperation; Weakness - upper extremities; Paresthesia of skin - upper extremities. Reason for transfer: Higher level of care. Accepting physician is DR Khan. Condition is Fair. Problem is new. Symptoms have improved. cp
[2020-06-25] MEDS ORDERED: HYDROMORPHONE HCL 1 MG/ML INJ ONE (18:17)
[2020-06-25 19:13] VITALS: TEMP 97.2
[2020-06-25 19:17] VITALS: BP 158/94; O2SAT 98
== END 2020-06-25 19:08 | disposition short-term general hospital (02) ==
LOC: ER 13:40
DX: S12.190A Other displaced fracture of second cervical vertebra, initial encounter for closed fracture (principal); R20.2 Paresthesia of skin; R53.1 Weakness; W01.0XXA Fall on same level from slipping, tripping and stumbling without subsequent striking against object, initial encounter; Y93.89 Activity, other specified; Y92.9 Unspecified place or not applicable; F17.210 Nicotine dependence, cigarettes, uncomplicated; I10 Essential (primary) hypertension; Z79.01 Long term (current) use of anticoagulants; Z86.718 Personal history of other venous thrombosis and embolism
CPT/HCPCS: 85025; 80048; 36415; 86900; 86850; 85610; 86901; 85730; 70450; 71250; 72125; 96372; 96374; 99285; J3010; J1170 ×2

== ENCOUNTER 2021-06-26 10:38 | Emergency (ER) | payer OTHER ==
--- OUTSIDE RECORDS SUMMARY | 2021-06-26 10:42 | XMS REPORT | Continuity of Care Document ---
:1955 Author Organization [facility] t Address [address] [place] [address] Care Team Providers Name Role Phone CELIA Attending Clinician Unavailable PANDA Attending Clinician Unavailable LYNNE Attending Clinician Unavailable Castillo Attending Clinician Unavailable ALIDA Attending Clinician Unavailable CARLOS Attending Clinician Unavailable NORTH Attending Clinician Unavailable VASCULAR Attending Clinician Unavailable KALEIGH Attending Clinician Unavailable Problems Condition Condition Condition Status Onset Resolution Last Treating Co mments Source Name Details Category Date Date Treatment Clinician Date Open Open Problem Active Univers fracture fracture [...] Univers post post ity of cervical cervical [place] spinal spinal Physici arthrodesi arthrodesi an s [...] pain pain ity of [place] [facility] ans Amputation Amputation [...] ity of (neck) (neck) [place] [facility] ans Encounter Encounter Problem Active Uni vers for for ity of administra administra [place] of tion of Physici COVID-19 COVID-19 ans vaccine vaccine Allergies, Adverse Reactions, Alerts Allergy Allergy Status Severity Reaction(s) Onset Inactive Treating Comm ents Source Name Type Date Date Clinician Ibuprofe Allergy Active Univers n TABS to drug ity of (finding [place] ) Physici ans Social History Smoking Status Start Date Stop Date Source Occasional tobacco smoker [facility]iver [facility]ity [facility] [place] [facility] (finding) Medications Ordered Filled Start Stop Current Ordering Indication Dosage Frequency Signature Comments Components Source Medication Medication Date Date Medication? Clinician (SIG) Name Name Vitamin D3 Vitamin D3 Yes GLADYS Take one Univers 1.25 MG 1.25 MG 5-26 BATISTA PA tablet it y of (9[address]30 [place]) (60169 [place]) 00:00: weekly [place] Oral Oral 00 [...] ci Tablet Tablet NEEDED FOR ans PAIN. Immunizations Ordered Immunization Filled Immunization Date Status Commen ts Source Name Name Hurray! 2020-08-09 Completed Universit y of COVID-19 Vacc 30 16:00:00 [place] Ph ys[facility] MCG/0.3ML Intramuscular Suspension Procedures Procedure Date / Time Performed Performing Clinician [facility] e Physical Therapy 2020-08-14 00:00:00 [facility] Physicians Physical Therapy 2020-05-22 00:00:00 [facility]icians MRI Spine cervical wo 2018-08-15 00:00:00 [facility] [place] contrast [id number] Physicians [U] XRAY BONE LENGTH 2018-05-28 00:00:00 [facility] of [place] STUDY-SCANOGRAM [id number] Physicians [U] XRAY KNEE 1 OR 2 2018-05-28 00:00:00 [facility] [place] VWS LEFT [id number] Physicians [U] XRAY KNEE 1 OR 2 2018-05-25 00:00:00 [facility] [place] VWS LEFT [id number] Physicians [U] XRAY KNEE 1 OR 2 2017-10-13 00:00:00 [facility] [place] VWS LEFT [id number] Physicians [U] XRAY KNEE 1 OR 2 2017-09-29 00:00:00 [facility] [place] VWS LEFT [id number] Physicians [U] XRAY KNEE 1 OR 2 2017-07-10 00:00:00 [facility] [place] VWS LEFT [id number] Physicians [U] XRAY KNEE 1 OR 2 2017-07-04 00:00:00 [facility] [place] VWS LEFT [id number] Physicians History of Ankle University [facility] Physicians Plan of Care Planned Activity Planned Date Details Comments Source Diagnostic Test 2018-06-25 [U] XRAY KNEE 1 [facility] [place] Pending 00:00:00 OR 2 S LEFT Physicians [id number] [code = [id number]] Encounters Start End Encounter Admission Attending Care Care Encounter Source Date/Time Date/Time Type Type Clinicians Facility Department ID 2020-08-14 2020-08-14 Appointmen NAKUL YANG [facility]oped[facility] [id number] Univers 11:20:00 11:20:00 t; ELVI YANG, at [facility] ELVI Pulido Sports Tess Grant [facility] [place] - ans [place] 2020-08-09 2020-08-09 Appointmen NAKUL MOSQUEDA [facility] [id number] Univers 16:00:00 16:00:00 t; PANDA NURSE-COOLE i ty of NURSE-COOL Y [facility] Physici ans 2020-05-22 2020-05-22 Appointmen NAKUL YANG [facility] [id number] Univers 10:20:00 10:20:00 t; ELVI YANG, at [facility] ELVI Grant M.D. [facility] [place] [facility] 2020-04-03 2020-04-03 AppointNAKUL Davis [facility] [id number] Univers 11:40:00 11:40:00 t; [facility] 2020-02-14 2020-02-14 AppointNAKUL Davis [facility] [id number] Univers 11:45:00 11:45:00 t; ELVI YANG, at [facility] ELVI Grant M.D. Orthopedic Physi ci and Spine [facility] 2019-04-01 2019-04-01 AppointNAKUL Dong [facility] [id number] Univers 12:45:00 12:45:00 t; GLADYS BATISTA PA ity of [place] [facility] 2019-04-01 2019-04-01 AppointNAKUL Dong UTP [id number] Univers 11:00:00 11:00:00 t; GLADYS BATISTA PA ity of [place] Physici [facility] 2019-03-21 2019-03-21 AppointNAKUL Heredia [id number] Univers 07:00:00 07:00:00 t; Arnaldo Chong ity of [place], M.D. [place] M.D. Physici [facility] 2019-03-21 2019-03-21 Appointmen NAKUL Chong UTP [id number] Univers 07:00:00 07:00:00 t; Arnaldo Chong ity of [place], M.D. [place] M.D. Physici [facility] 2019-03-21 2019-03-21 Outpatient [facility] [id number] [facility] 06:00:00 06:00:00 2019-02-25 2019-02-25 AppointNAKUL Dong [facility] [id number] Univers 10:15:00 10:15:00 t; GLADYS BATISTA PA ity of [place] Physici ans 2018-08-15 2018-08-15 AppointNAKUL Mckeon [facility] [id number] Univers 14:00:00 14:00:00 t; Tess CADENA at [facility] [place], [place] Tiffanie CADENA. Physi ci ans 2018-05-28 2018-05-28 Appointmen LYNNE [facility] Orthopedics [id number] Univers 11:45:00 11:45:00 t; GLADYS BATISTA PA ity of GLADYS, MARILY[place] Physici ans 2018-04-30 2018-04-30 Appointmen LYNNE [facility]opedics [id number] Univers 11:00:00 11:00:00 t; GLADYS BATISTA, PA ity of GLADYS, [place] Physici ans 2017-10-16 2017-10-16 Appointmen LYNNE [facility] [id number] Univers 09:30:00 09:30:00 t; GLADYS BATISTA PA ity of GLADYS, [place] Physici ans 2017-10-09 2017-10-09 Appointalexi BATISTA [facility] Orthopedics [id number] Univers 10:45:00 10:45:00 t; GLADYS BATISTA PA ity of GLADYS, MARILY[place] Physici ans 2017-07-10 2017-07-10 Appointmen LYNNE [facility] [id number] Univers 10:45:00 10:45:00 t; GLADYS BATISTA PA [facility] ity of [facility] [facility] ans 2017-04-17 2017-04-17 Appointmen LYNNE [facility] [id number] Univers 09:30:00 09:30:00 t; GLADYS BATISTA PA ity of GLADYS, MAR[place] Physici ans 2017-01-27 2017-01-27 Appointmen LYNNE [facility] [id number] Univers 12:00:00 12:00:00 t; GLADYS BATISTA PA ity of GLADYS, [place] Physici ans 2017-01-20 2017-01-20 Appointmen LYNNE [facility] [id number] Univers 11:30:00 11:30:00 t; GLADYS BATISTA PA ity of GLADYS, [place] Physici ans 2016-11-21 2016-11-21 Appointmen LYNNE [facility] [id number] Univers 10:30:00 10:30:00 t; GLADYS BATISTA PA ity of GLADYS, [place] Physici ans 2016-11-04 2016-11-04 Appointmen LYNNE, [facility] UTP [id number] Univers 10:30:00 10:30:00 t; GLADYS BATISTA [facility] 2016-10-26 2016-10-26 Appointmen GONZALEZ, [facility] UTP [id number] Univers 10:30:00 10:30:00 t; JOHANA GONZALEZ i ty [facility] 2016-10-25 2016-10-25 Appointmen LYNNE, [facility] UTP [id number] Univers 10:00:00 10:00:00 t; GLADYS BATSITA PA ity of GLADYS, [facility] Physici ans 2016-10-13 2016-10-13 Appointmen NAKUL Chong UTP [id number] Univers 08:00:00 08:00:00 t; Arnaldo Chong ity of [place], M.D. [facility].D. Physici ans 2016-09-20 2016-09-20 Appointmen CARLOS, [facility] UTP [id number] Univers 11:00:00 11:00:00 t; JOHANA GONZALEZ i ty of Tess VAUGHN [facility].D. Physici ans 2016-09-09 2016-09-09 Appointmen LYNNE [facility] UTP [id number] Univers 12:30:00 12:30:00 t; GLADYS BATISTA PA itdoug of GLADYS, [facility] Physici ans 2016-08-25 2016-08-25 Appointmen NORTH, [facility] UTP [id number] Univers 12:00:00 12:00:00 t; DIAMANTE KAT ity of [place], M.D. [facility].D. Physici ans 2016-08-23 2016-08-23 Appointmen VASCULAR, [facility] UTP [id number] Univers 10:00:00 10:00:00 t; [facility] christi o f VASCULAR, [facility] Physici ans 2016-08-23 2016-08-23 Appointmen NORTH, [facility] UTP [id number] Univers 10:00:00 10:00:00 t; DIAMANTE KAT ity of [place], M.D. [facility].D. Physici ans 2016-08-15 2016-08-15 Appointmen KALEIGH NAKUL UTP [id number] Univers 16:00:00 16:00:00 t; christi PEDROZA M.D. [place] Jordan PEDROZA M.D. ans 2016-08-01 2016-08-01 [facility] KALEIGH[facility] NAKUL UTP [id number] Univers 14:45:00 14:45:00 t; christi PEDROZA M.D. [place] MICHAEL, Physici M.D. ans 2016-07-14 2016-07-14 [facility] CELIA, NAKUL UTP [id number] Univers 12:45:00 12:45:00 t; ELVI YANG ity of [place] M.D. [place], M.D. Physici ans 2016-03-01 2016-03-01 [facility] CELIA, NAKUL UTP [id number] Univers 12:45:00 12:45:00 t; ELVI YANG ity of [place] M.D. [place], M.D. Physici ans 2016-01-20 2016-01-20 [facility] CELIA, NAKUL UTP [id number] Univers 12:50:00 12:50:00 t; ELVI YANG ity of [place] M.D. [place], M.D. Physici ans 2016-01-19 2016-01-19 [facility] CELIA, NAKUL UTP [id number] Univers 11:50:00 11:50:00 t; ELVI YANG ity of [place] M.D. [place], M.D. Physici ans 2016-01-19 2016-01-19 [facility] CELIA, NAKUL UTP [id number] Univers 11:45:00 11:45:00 t; ELVI YANG ity of [place] M.D. [place], M.D. Physici ans 2015-10-20 2015-10-20 [facility] CELIA, NAKUL UTP [id number] Univers 11:50:00 11:50:00 t; ELVI YANG ity of [place] M.D. [place], M.D. Physici ans 2015-09-08 2015-09-08 Appointmen NAKUL YANG UTP [id number] Univers 11:50:00 11:50:00 t; ELVI YANG ity of [place] M.D. [place], M.D. Physici ans 2015-08-18 2015-08-18 Appointmen NAKUL YANG UTP [id number] Univers 12:40:00 12:40:00 t; ELVI YANG ity of [place] M.D. [place], M.D. Physici ans Results Test Description Test Time Test Comments Results Result Sourc e Comments [U] XRAY KNEE 1 2018-04-30 Images Universit y of [place] 2 VWS LEFT 11:32:00 acquired, not [place] [id number] reported on Physicians this accession number.
[2021-06-26] MEDS ORDERED: MORPHINE 4 MG/ML SYR ONE ×2 (11:18→13:55)
[2021-06-26] MEDS ORDERED: ONDANSETRON 4 MG (ODT) TAB ONE (11:18)
--- NOTE | 2021-06-26 13:28 | RAD REPORT ---
EXAM DESCRIPTION: RAD - Ribs Right - 06/26/2021 12:55 pm CLINICAL HISTORY: PAIN COMPARISON: Chest Single View dated 06/26/2021 FINDINGS: Acute right lateral eighth rib fracture. This is minimally displaced. Other remote right-s ided rib fractures are present. Surgical is present right axilla. No pneumothorax. IVC filter. IMPRESSION: Minimally displaced right eighth rib fracture. No pneumothorax.
--- NOTE | 2021-06-26 13:31 | RAD REPORT ---
EXAM DESCRIPTION: RAD - Hip Right 2 View - 06/26/2021 12:55 pm CLINICAL HISTORY: PAIN COMPARISON: No comparisons FINDINGS: No right hip fractures identified. 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 The right hip is located. Peripheral vascular calcifications . Moderate right acetabular degenerative changes with component of protrusio. IMPRESSION: No acute osseous abnormality involving the right hip.
--- NOTE | 2021-06-26 13:32 | RAD REPORT ---
EXAM DESCRIPTION: RAD - Chest Single View - 06/26/2021 12:55 pm CLINICAL HISTORY: right rib pain COMPARISON: CHEST PA AND LAT 2 VIEW dated 07/24/2015; CHEST SINGLE VIEW dated 04/24/2012 FINDINGS: Lines: None. Lungs: No evidence of edema or pneumonia. Pleural: No significant pleural effusions or pneumothorax. Cardiac: The heart size is within normal limits. Bones: Acute right lateral eighth rib fracture. Remote bilateral rib fractures. Other: Surgical clips in right axilla. IMPRESSION: No acute cardiopulmonary disease. Right lateral eighth rib fracture. No underlying pneum othorax.
--- NOTE | 2021-06-26 14:12 | ER ---
Nurse's Notes [facility] Name: Kota Caldwell Age: 66 yrs Sex: Male : 1955 Arrival Date: 06/26/2021 Time: 10:45 Bed 17 Private MD: Diagnosis: Contusion of right hip;Fracture of one rib, right side Presentation: 06/26 10:45 Chief complaint: Patient states: fell about 4 days ago. tripped and landed on my whole tw2 RIGHT side on the concrete. my RIGHT hip is hurting and i may have cracked a few ribs. i have some popping sounds in RIGHT ribs area. the pain has gotten worse. normally i walk with a walker but i havent been able to because of the pain. Coronavirus screen: At this time, the client does not indicate any symptoms associated with coronavirus-19. Ebola Screen: Patient denies travel to an Ebola-affected area in the 21 days before illness onset. Initial Sepsis Screen: Does the patient meet any 2 criteria? No. Patient's initial sepsis screen is negative. Does the patient have a suspected source of infection? No. Patient's initial sepsis screen is negative. Risk Assessment: Do you want to hurt yourself or someone else? Patient reports no desire to harm self or others. Onset of symptoms was June 26, 2021. 10:45 Method Of Arrival: Wheelchair tw2 10:45 Acuity: HERMELINDO 4 tw2 Triage Assessment: 10:47 General: Appears in no apparent distress. uncomfortable, slender, Behavior is calm, tw2 cooperative, appropriate for age. General: Smells of cigarette smoke. Pain: Complains of pain in right hip. Neuro: Level of Consciousness is awake, alert, obeys commands, Oriented to person, place, time, situation. Respiratory: Airway is patent Respiratory effort is even, unlabored, Respiratory pattern is regular, symmetrical. Historical: - Allergies: 10:47 No Known Allergies; tw2 - Home Meds: 10:47 Eliquis 2.5 mg oral tab 1 tab once daily [Active]; lisinopril 2.5 mg oral tab 1 tab tw2 once daily [Active]; - PMHx: 10:47 DVT; Hypertension; Lupus; tw2 - PSHx: 10:47 back surgery; LEFT BKA; neck surgery; tw2 - Immunization history:: Client reports receiving the 2nd dose of the Covid vaccine, Flu vaccine is up to date. - Social history:: Smoking status: Patient reports the use of cigarette tobacco products, smokes one pack cigarettes per day. Screenin:57 Abuse screen: Denies threats or abuse. Nutritional screening: No deficits noted. tw2 Tuberculosis screening: No symptoms or risk factors identified. Fall Risk Secondary diagnosis (15 points) impaired mobility, LEFT BKA, pt wearing prosthesis at this time. . Assessment: 11:00 General: Appears in no apparent distress. slender, well groomed, well developed, well jh6 nourished, Behavior is calm, cooperative, appropriate for age. Pain: Complains of pain in right iliac crest and right hip Pain currently is 6 out of 10 on a pain scale. Quality of pain is described as dull, Pain began 4 days prior Is continuous, Aggravated by increased activity, repositioning, weight bearing. 12:59 Reassessment: pt back form X-ray. awaiting results. jd3 13:57 Reassessment: Patient appears in no apparent distress at this time. Patient and/or jd3 family updated on plan of care and expected duration. Pain level reassessed. Patient is alert, oriented x 3, equal unlabored respirations, skin warm/dry/pink. Vital Signs: 10:45 BP 122 / 76; Pulse 81; Resp 17; Temp 97.9(TE); Pulse Ox 96% on R/A; Weight 82.55 kg tw2 (R); Height 6 ft. 5 in. (195.58 cm); Pain 8/10; 13:57 BP 120 / 75; Pulse 75; Resp 17 S; Pulse Ox 97% on R/A; jd3 10:45 Body Mass Index 21.58 (82.55 kg, 195.58 cm) tw2 ED Course: 10:45 Patient arrived in ED. ds1 10:47 Triage completed. tw2 10:49 Arm band placed on. tw2 10:52 Corky Gonzalez NP is PHCP. pm1 10:52 Claudio Delcid MD is Attending Physician. pm1 10:52 Bed in low position. Call light in reach. Adult w/ patient. Pulse ox on. NIBP on. tw2 10:59 Macias, Alexis, RN is Primary Nurse. jd3 11:14 No provider procedures requiring assistance completed. jh6 12:55 Hip Right 2 View XRAY In Process Unspecified. EDMS 12:55 Chest Single View XRAY In Process Unspecified. EDMS 12:55 Ribs Right XRAY In Process Unspecified. EDMS Administered Medications: 11:22 Drug: morphine 4 mg Route: IM; Site: right deltoid; jd3 11:23 Drug: Ondansetron 4 mg Route: PO; jd3 13:57 Drug: morphine 4 mg Route: IM; Site: right deltoid; jd3 Outcome: 14:12 Discharge ordered by MD. pm1 14:36 Patient left the ED. jd3 Signatures: Dispatcher [employer] EDMS WanFabienne ds1 Corky Gonzalez NP PROGRAM CONTROL ANALYST pm1 Fransisca Boateng RN RN tw2 Alexis Macias RN RN jd3 Millie Vásquez RN RN jh6 Corrections: (The following items were deleted from the chart) 10:49 10:45 Chief complaint: Patient states: fell about 4 days ago. tripped and landed on my tw2 whole RIGHT side. my RIGHT hip is hurting and i may have cracked a few ribs. i have some popping sounds in RIGHT ribs area. the pain has gotten worse. normally i walk with a walker but i havent been able to because of the pain tw2
--- NOTE | 2021-06-26 14:12 | EDPHYS ---
Physician Documentation [facility] Name: Kota Caldwell Age: 66 yrs Sex: Male : 1955 Arrival Date: 06/26/2021 Time: 10:45 Bed 17 Private MD: KEE Physician Claudio Delcdi HPI: 06/26 11:14 This 66 yrs old Male presents to ER via Wheelchair with complaints of Hip Pain. pm1 11:14 The patient or guardian reports pain. that occurred outdoors, sustained from tripped pm1 and fell on his right side There is no obvious deformity, Patient uses a cane. After the fall he was walking with the cane but the pain got worse so he started using a walker. The complaints affect the right hip. Onset: The symptoms/episode began/occurred 4 day(s) ago. Modifying factors: The symptoms are alleviated by remaining still, the symptoms are aggravated by weight bearing. Associated signs and symptoms: Pertinent negatives: headache, head injury, neck pain, LOC. Severity of symptoms: in the emergency department the symptoms are actually worse. The patient has not experienced similar symptoms in the past. The patient has not recently seen a physician. Historical: - Allergies: 10:47 No Known Allergies; tw2 - Home Meds: 10:47 Eliquis 2.5 mg oral tab 1 tab once daily [Active]; lisinopril 2.5 mg oral tab 1 tab tw2 once daily [Active]; - PMHx: 10:47 DVT; Hypertension; Lupus; tw2 - PSHx: 10:47 back surgery; LEFT BKA; neck surgery; tw2 - Immunization history:: Client reports receiving the 2nd dose of the Covid vaccine, Flu vaccine is up to date. - Social history:: Smoking status: Patient reports the use of cigarette tobacco products, smokes one pack cigarettes per day. ROS: 11:14 Constitutional: Negative for fever, chills, and weight loss. pm1 11:14 Abdomen/GI: Negative for abdominal pain, nausea, vomiting, diarrhea, and constipation, Back: Negative for injury and pain. 11:14 Skin: Negative for injury, rash, and discoloration, Neuro: Negative for headache, weakness, numbness, tingling, and seizure. 11:14 Cardiovascular: Positive for right lateral rib pain, Negative for chest pain. 11:14 Respiratory: Negative for cough, shortness of breath. 11:14 MS/extremity: Positive for pain, of the right hip, Negative for decreased range of motion, deformity. 11:14 All other systems are negative. Exam: 11:14 Constitutional: This is a well developed, well nourished patient who is awake, alert, pm1 and in no acute distress. Head/Face: Normocephalic, atraumatic. 11:14 Back: No spinal tenderness. No costovertebral tenderness. Full range of motion. Skin: Warm, dry with normal turgor. Normal color with no rashes, no lesions, and no evidence of cellulitis. 11:14 Eyes: Exam is negative for acute changes, Extraocular movements: intact throughout, Conjunctiva: no acute changes, no injection. 11:14 ENT: Mouth: no acute changes, Lips: normal, moist, Oral mucosa: normal, pink and intact, moist. 11:14 Neck: Exam negative for acute changes, External neck: no acute changes, C-spine: vertebral tenderness, is not appreciated. 11:14 Chest/axilla: Palpation: tenderness, that is mild, of the right lateral anterior chest. 11:14 Cardiovascular: Exam negative for acute changes, Rate: normal, Rhythm: regular, Pulses: no pulse deficits are appreciated. 11:14 Respiratory: Exam negative for acute changes, respiratory distress, shortness of breath. 11:14 Abdomen/GI: Inspection: abdomen appears normal, Palpation: abdomen is soft and non-tender, in all quadrants. 11:14 Musculoskeletal/extremity: Extremities: grossly normal except: noted in the right hip tenderness: There is no evidence of decreased ROM, deformity. 11:14 Skin: injury, contusion(s), that are superficial, of the right iliac crest. 11:14 Neuro: Exam negative for acute changes, Orientation: is normal, Mentation: is normal, Motor: is normal, moves all fours. Vital Signs: 10:45 BP 122 / 76; Pulse 81; Resp 17; Temp 97.9(TE); Pulse Ox 96% on R/A; Weight 82.55 kg tw2 (R); Height 6 ft. 5 in. (195.58 cm); Pain 8/10; 13:57 BP 120 / 75; Pulse 75; Resp 17 S; Pulse Ox 97% on R/A; jd3 10:45 Body Mass Index 21.58 (82.55 kg, 195.58 cm) tw2 MDM: 10:58 Patient medically screened. pm1 14:11 Data reviewed: vital signs. Data interpreted: Pulse oximetry: on room air is 97 %. pm1 Interpretation: normal. Counseling: I had a detailed discussion with the patient and/or guardian regarding: the historical points, exam findings, and any diagnostic results supporting the discharge/admit diagnosis, the need for outpatient follow up, a family practitioner, a supervisor paint roller covers, to return to the emergency department if symptoms worsen or persist or if there are any questions or concerns that arise at home. 14:13 ED course: Patient refused prescription for pain medication because he will follow up pm1 with his pain management MD. 06/26 11:14 Order name: Hip Right 2 View XRAY; Complete Time: 13:42 pm1 06/26 11:14 Order name: Chest Single View XRAY; Complete Time: 13:42 pm1 06/26 11:14 Order name: Ribs Right XRAY; Complete Time: 13:42 pm1 06/26 14:13 Order name: INCENTIVE SPIROMETRY pm1 Administered Medications: 11:22 Drug: morphine 4 mg Route: IM; Site: right deltoid; jd3 11:23 Drug: Ondansetron 4 mg Route: PO; jd3 13:57 Drug: morphine 4 mg Route: IM; Site: right deltoid; jd3 Disposition Summary: 06/26/21 14:12 Discharge Ordered Location: Home pm1 Problem: new pm1 Symptoms: have improved pm1 Condition: Stable pm1 Diagnosis - Contusion of right hip pm1 - Fracture of one rib, right side pm1 Followup: pm1 - With: Emergency Department - When: As needed - Reason: Worsening of condition Followup: pm1 - With: Private Physician - When: 2 - 3 days - Reason: Recheck today's complaints, Continuance of care, Re-evaluation by your physician Discharge Instructions: - Discharge Summary Sheet pm1 - Contusion pm1 - Rib Fracture pm1 - Hip Pain pm1 - How to Use an Incentive Spirometer pm1 Forms: - Medication Reconciliation Form pm1 - Thank You Letter pm1 - Antibiotic Education pm1 - Prescription Opioid Use pm1 Addendum: 06/27/2021 18:41 Co-signature as Attending Physician, Claudio Delcid MD I agree with the assessment and c thacker plan of care. Signatures: Dispatcher [employer] Claudio Saldivar MD MD cha Marinas, Patrick, JAVAD LINING BRUSHER pm1 Fransisca Boateng RN RN tw2 Alexis Macias RN RN jd3
[2021-06-26 15:14] VITALS: TEMP 97.9
[2021-06-26 15:17] VITALS: BP 120/75; O2SAT 97
== END 2021-06-26 14:36 | disposition home or self-care (01) ==
LOC: ER 10:38
DX: S22.31XA Fracture of one rib, right side, initial encounter for closed fracture (principal); W01.0XXA Fall on same level from slipping, tripping and stumbling without subsequent striking against object, initial encounter; Y92.89 Other specified places as the place of occurrence of the external cause; I10 Essential (primary) hypertension; F17.210 Nicotine dependence, cigarettes, uncomplicated; Z86.718 Personal history of other venous thrombosis and embolism; Z79.01 Long term (current) use of anticoagulants
CPT/HCPCS: 71045; 96372; 99283

== ENCOUNTER 2021-07-14 13:25 | Observation (INO) | payer OTHER ==
--- OUTSIDE RECORDS SUMMARY | 2021-07-14 13:29 | XMS REPORT | Continuity of Care Document ---
:1955 Author Organization [facility] t Address [address] [place] [address] Care Team Providers Name Role Phone CELIA [...] Univers post post ity of cervical cervical [place] spinal spinal Physici arthrodesi arthrodesi an s [...] 5-26 BATISTA PA tablet it y of (78900 [place]) ([address]43 [place]) 00:00: weekly [place] Oral Oral 00 [...] Date Status Commen ts Source Name Name [employer] 2020-08-09 Completed Universit y of COVID-19 Vacc 30 16:00:00 [place] Ph ysicians MCG/0.3ML Intramuscular Suspension Procedures Procedure Date / Time Performed Performing Clinician [facility] e Physical Therapy 2020-08-14 00:00:00 [facility] Physicians Physical Therapy 2020-05-22 00:00:00 [facility] MRI Spine cervical wo 2018-08-15 00:00:00 [facility] [place] contrast [id number] Physicians [U] XRAY BONE LENGTH 2018-05-28 00:00:00 [facility] [place] STUDY-SCANOGRAM [id number] Physicians [U] XRAY KNEE 1 OR 2 2018-05-28 00:00:00 [facility] [place] VWS LEFT [id number] Physicians [U] XRAY KNEE 1 OR 2 2018-05-25 00:00:00 [facility] [place] VWS LEFT 28557 Physicians [U] XRAY KNEE 1 OR 2 2017-10-13 00:00:00 [facility] [place] VWS LEFT 10785 Physicians [U] XRAY KNEE 1 OR 2 2017-09-29 00:00:00 [facility] [place] VWS LEFT 16610 Physicians [U] XRAY KNEE 1 OR 2 2017-07-10 00:00:00 [facility] [place] VWS LEFT 68550 Physicians [U] XRAY KNEE 1 OR 2 2017-07-04 00:00:00 [facility] [place] VWS LEFT 30785 Physicians History of Ankle [facility] Physicians Plan of Care Planned Activity Planned Date Details Comments Source Diagnostic Test 2018-06-25 [U] XRAY KNEE 1 [facility] [place] Pending 00:00:00 OR 2 S LEFT Physicians [id number] [code = 13151] Encounters Start End Encounter Admission Attending Care Care Encounter Source Date/Time Date/Time Type Type Clinicians Facility Department ID 2020-08-14 2020-08-14 Appointmen NAKUL YANG Orthopedics [id number] Univers 11:20:00 11:20:00 t; ELVI YANG, at [facility] ELVI Pulido Sports Tess Grant Medicine [facility] [place] - [place] 2020-08-09 2020-08-09 Appointmen NAKUL MOSQUEDA [facility] [id number] Univers 16:00:00 16:00:00 t; PANDA NURSE-COOLE i ty of NURSE-COOL Y [facility] [place] [facility] Physici ans 2020-05-22 2020-05-22 Appointmen NAKUL YANG Orthopedics [id number] Univers 10:20:00 10:20:00 t; ELVI YANG, at [facility] ELVI Grant M.D. [facility] [place] [facility] 2020-04-03 2020-04-03 AppointNAKUL Davis [facility] [id number] Univers 11:40:00 11:40:00 t; ELVI YANG, [facility] 2020-02-14 2020-02-14 AppointNAKUL Davis Orth[facility] [id number] Univers 11:45:00 11:45:00 t; ELVI YANG, at [facility] ELVI Grant M.D. Orthopedic Physi ci and Spine [facility] 2019-04-01 2019-04-01 AppointNAKUL Dong [facility] [id number] Univers 12:45:00 12:45:00 t; GLADYS BATISTA PA ity of [place] [facility] 2019-04-01 2019-04-01 AppointNAKUL Dong UTP [id number] Univers 11:00:00 11:00:00 t; GLADYS BATISTA PA ity of [place] Physici [facility] 2019-03-21 2019-03-21 AppointNAKUL Heredia [id number] Univers 07:00:00 07:00:00 t; Arnaldo Chong ity of [place], M.D. [place] M.D. Physici [facility] 2019-03-21 2019-03-21 Appointmen NAKUL Chong UTP [id number] Univers 07:00:00 07:00:00 t; Arnaldo Chong ity of [place], M.D. [place] M.D. Physici [facility] 2019-03-21 2019-03-21 Outpatient [facility] [id number] [facility] 06:00:00 06:00:00 2019-02-25 2019-02-25 AppointNAKUL Dong [facility] [id number] Univers 10:15:00 10:15:00 t; GLADYS BATISTA PA ity of [place] Physici ans 2018-08-15 2018-08-15 AppointNAKUL Mckeon [facility] [id number] Univers 14:00:00 14:00:00 t; Tess CADENA at [facility], [place] Tiffanie CADENA. Physi ci ans 2018-05-28 2018-05-28 Appointmen LYNNE [facility] Orthopedics [id number] Univers 11:45:00 11:45:00 t; GALDYS BATISTA PA ity of GLADYS, [place] Physici ans 2018-04-30 2018-04-30 Appointmen LYNNE [facility] Orthopedics [id number] Univers 11:00:00 11:00:00 t; GLADYS BATISTA, PA ity of [place] Physici ans 2017-10-16 2017-10-16 Appointmen LYNNE [facility] Orthopedics [id number] Univers 09:30:00 09:30:00 t; GLADYS BATISTA PA ity of [place] Physici ans 2017-10-09 2017-10-09 Appointalexi BATISTA [facility] Orthopedics [id number] Univers 10:45:00 10:45:00 t; GLADYS BATISTA PA ity of GLADYS, [place] Physici ans 2017-07-10 2017-07-10 Appointmen LYNNE [facility] [id number] Univers 10:45:00 10:45:00 t; GLADYS BATISTA PA [facility] [facility] 2017-04-17 2017-04-17 Appointmen LYNNE [facility] [id number] Univers 09:30:00 09:30:00 t; GLADYS BATISTA PA ity of GLADYS, [place] Physici ans 2017-01-27 2017-01-27 Appointmen LYNNE [facility] [id number] Univers 12:00:00 12:00:00 t; GLADYS BATISTA PA ity of GLADYS, [place] Physici ans 2017-01-20 2017-01-20 Appointmen LYNNE [facility] [id number] Univers 11:30:00 11:30:00 t; GLADYS BATISTA PA ity of [place], [place] Physici ans 2016-11-21 2016-11-21 Appointmen LYNNE [facility] [id number] Univers 10:30:00 10:30:00 t; GLADYS BATISTA PA ity of [place] Physici ans 2016-11-04 2016-11-04 Appointmen LYNNE, [facility] UTP [id number] Univers 10:30:00 10:30:00 t; [facility]YS [facility] 2016-10-26 2016-10-26 Appointmen GONZALEZ, [facility] UTP [id number] Univers 10:30:00 10:30:00 t; JOHANA GONZALEZ i ty [facility] Tess [facility] ans 2016-10-25 2016-10-25 Appointmen LYNNE, [facility] UTP [id number] Univers 10:00:00 10:00:00 t; GLADYS BATISTA PA ity of GLADYS, [facility] Physici ans 2016-10-13 2016-10-13 Appointmen NAKUL Chong UTP [id number] Univers 08:00:00 08:00:00 t; Arnaldo Chong ity of [place], M.D. [facility] Physici ans 2016-09-20 2016-09-20 Appointmen CARLOS, [facility] UTP [id number] Univers 11:00:00 11:00:00 t; JOHANA GONZALEZ i ty of Tess VAUGHN [facility].D. Physici ans 2016-09-09 2016-09-09 Appointmen LYNNE [facility] UTP [id number] Univers 12:30:00 12:30:00 t; GLADYS BATISTA PA itdoug of GLADYS, [facility] Physici ans 2016-08-25 2016-08-25 Appointmen NORTH, [facility] UTP [id number] Univers 12:00:00 12:00:00 t; DIAMANTE KAT ity of [place], M.D. [facility].D. Physici ans 2016-08-23 2016-08-23 Appointmen VASCULAR, [facility] UTP [id number] Univers 10:00:00 10:00:00 t; [facility] christi o f VASCULAR, [facility] Physici ans 2016-08-23 2016-08-23 Appointmen NORTH, [facility] UTP [id number] Univers 10:00:00 10:00:00 t; DIAMANTE KAT ity of [place], M.D. [facility].D. Physici ans 2016-08-15 2016-08-15 Appointmen KALEIGH NAKUL UTP [id number] Univers 16:00:00 16:00:00 t; christi PEDROZA M.D. [place] PEDROZA M.D. ans 2016-08-01 2016-08-01 [facility] KALEIGH, NAKUL UTP [id number] Univers 14:45:00 14:45:00 t; christi PEDROZA M.D. [place] MICHAEL, Physici M.D. ans 2016-07-14 2016-07-14 [facility] CELIA, NAKUL UTP [id number] Univers 12:45:00 12:45:00 t; ELVI YANG ity of [place] M.D. [place], M.D. Physici ans 2016-03-01 2016-03-01 [facility] CELIA, NAKUL UTP [id number] Univers 12:45:00 12:45:00 t; ELVI YANG ity of [place] M.D. [place], M.D. Physici ans 2016-01-20 2016-01-20 [facility] CELIA, NAKUL UTP [id number] Univers 12:50:00 12:50:00 t; ELVI YANG ity of [place] M.D. [place], M.D. Physici ans 2016-01-19 2016-01-19 [facility] CELIA, NAKUL UTP [id number] Univers 11:50:00 11:50:00 t; ELVI YANG ity of [place] M.D. [place], M.D. Physici ans 2016-01-19 2016-01-19 [facility] CELIA, NAKUL UTP [id number] Univers 11:45:00 11:45:00 t; ELVI YANG ity of [place] M.D. [place], M.D. Physici ans 2015-10-20 2015-10-20 [facility] CELIA, NAKUL UTP [id number] Univers 11:50:00 11:50:00 t; ELVI YANG ity of [place] M.D. [place], M.D. Physici ans 2015-09-08 2015-09-08 Appointmen NAKUL YANG UTP [id number] Univers 11:50:00 11:50:00 t; ELVI YANG ity of [place] M.D. [place], M.D. Physici ans 2015-08-18 2015-08-18 Appointmen NAKUL YANG UTP [id number] Univers 12:40:00 12:40:00 t; ELVI YANG ity of [place] M.D. [place], M.D. Physici ans Results Test Description Test Time Test Comments Results Result Sourc e Comments [U] XRAY KNEE 1 2018-04-30 Images [facility] [place] 2 VWS LEFT 11:32:00 acquired, not [place] [id number] reported on Physicians this accession number.
[2021-07-14] MEDS ORDERED: CEFTRIAXONE 1000 MG/VIAL ONE (14:23)
[2021-07-14] MEDS ORDERED: NA CHLORIDE 0.9% 250 ML ONE (14:23)
[2021-07-14] MEDS ORDERED: NA CHLORIDE 0.9% 1,000 ML ONE (14:23)
[2021-07-14] MEDS ORDERED: AZITHROMYCIN 500 MG INJ IVPB ONE (14:23)
[2021-07-14 14:25] LABS: Absolute Lymphocytes (CBC) 1.9 K/uL (0.7-4.9); Hematocrit 41.6 % (39.6-49.0); Lymphocytes % 27.4 % (15.3-44.8); MPV 7.7 fL (7.6-11.3)
[2021-07-14 14:30] LABS: Protime INR 1.11
--- NOTE | 2021-07-14 14:41 | RAD REPORT ---
EXAM DESCRIPTION: CT - Head Brain Wo Cont - 07/14/2021 2:28 pm CLINICAL HISTORY: CONFUSED COMPARISON: CT-STROKE BRAIN W/O CONTRAST dated 11/10/2014 TECHNIQUE: Axial 5 mm thick images of the head were obtained without IV contrast. All CT scans are performed using dose optimization technique as appropriate and may include automated exposure control or mA/KV adjustment according to patient size. FINDINGS: No intracranial hemorrhage, mass, edema or shift of mid-line structures. No acute cortical based infarction identified. Atrophy changes are minimal and show very little progression since 2014 . Ventricles are in proportion to volume loss. Minimal chronic ischemic change in the cerebral white matter. Mastoid air cells and visualized portions of the paranasal sinuses are clear of acute disease. No acute bony findings. IMPRESSION: No acute intracranial finding identifiable. Patient has mild atrophy change showing only minimal progression since 2014.
[2021-07-14 14:51] LABS: ALT/SGPT 16 U/L (12-78); AST/SGOT 20 U/L (15-37); Alkaline Phosphatase 257 U/L (45-117); Amylase 88 U/L (25-115); BUN Blood Urea Nitrogen 16 mg/dL (7-18); Bicarbonate 24 mmol/L (21-32); Bilirubin Direct 0.2 mg/dL (0-0.2); Bilirubin Total 0.6 mg/dL (0.2-1.0); CKMB Creatine Kinase MB 2.2 ng/mL (1.0-3.6); Creatine Phosphokinase 171 U/L (39-308); Glucose Level 97 mg/dL (74-106); Lipase 89 U/L (73-393); Sodium Level 135 mmol/L (136-145)
[2021-07-14] MEDS ORDERED: MORPHINE 4 MG/ML SYR ONE (14:58)
[2021-07-14] MEDS ORDERED: ONDANSETRON 4 MG/2 ML VIAL ONE (14:58)
[2021-07-14 15:06] LABS: Troponin High Sensitivity < 3.00 pg/mL (<58.9)
--- NOTE | 2021-07-14 15:26 | RAD REPORT ---
EXAM DESCRIPTION: RAD - Chest Single View - 07/14/2021 3:09 pm CLINICAL HISTORY: CONGESTION COMPARISON: Portable June 26 TECHNIQUE: AP portable chest image was obtained 07/14/2021 3:09 pm . FINDINGS: Baseline fibrotic lung pattern is present. This matches comparison. No acute failure or vo lume overload seen. Heart size is normal. Upper lobe vasculature within normal limits. Mediastinum is distorted by rotation. Bilateral costophrenic angle blunting is present. This could be pleural scarring from underlying POLYSOMNOGRAPHY TECH D, small bilateral pleural effusions or a combination. No acute bony abnormality seen. No acute aorti c findings suspected. IMPRESSION: Chronic pleural and parenchymal fibrotic changes are present similar to June 26.
--- NOTE | 2021-07-14 15:46 | EDPHYS ---
Physician Documentation [facility] Name: Kota Caldwell Age: 66 yrs Sex: Male : 1955 Arrival Date: 07/14/2021 Time: 13:27 Bed 15 Private MD: ED Physician Jaiden Bello HPI: 07/14 14:22 This 66 yrs old Male presents to ER via Wheelchair with complaints of Weakness. ma2 14:22 Onset: The symptoms/episode began/occurred gradually, 2 day(s) ago. Associated signs ma2 and symptoms: Pertinent negatives: fever, nausea, paresthesias, seizure, visual field changes. Severity of symptoms: At their worst the symptoms were moderate in the emergency department the symptoms are unchanged. Current symptoms: Currently, the patient is not experiencing any symptoms. The patient has experienced similar episodes in the past. 66-year-old, with a left above-knee amputation, fell a week ago broken ribs on the left side, here with generalized weakness and confusion intermittent over the last 2 days, patient's been bedridden since then, has generalized weakness. Historical: - Allergies: 13:39 No Known Allergies; jg9 - PMHx: 13:39 DVT; Hypertension; Lupus; jg9 - PSHx: 13:39 back surgery; Left BKA; neck surgery; jg9 - Immunization history:: Adult Immunizations up to date. - Social history:: Smoking status: Patient reports the use of cigarette tobacco products, smokes one-half pack cigarettes per day. - Family history:: not pertinent. ROS: 14:22 Constitutional: Negative for fever, chills, and weight loss. ma2 14:22 All other systems are negative. Exam: 14:22 Constitutional: This is a well developed, well nourished patient who is awake, alert, ma2 and in no acute distress. ENT: Nares patent. No nasal discharge, no septal abnormalities noted. Tympanic membranes are normal and external auditory canals are clear. Oropharynx with no redness, swelling, or masses, exudates, or evidence of obstruction, uvula midline. Mucous membranes moist. Neck: Trachea midline, no thyromegaly or masses palpated, and no cervical lymphadenopathy. Supple, full range of motion without nuchal rigidity, or vertebral point tenderness. No Meningismus. Chest/axilla: Normal chest wall appearance and motion. Nontender with no deformity. No lesions are appreciated. Cardiovascular: Regular rate and rhythm with a normal S1 and S2. No gallops, murmurs, or rubs. Normal PMI, no JVD. No pulse deficits. Respiratory: Lungs have equal breath sounds bilaterally, clear to auscultation and percussion. No rales, rhonchi or wheezes noted. No increased work of breathing, no retractions or nasal flaring. Abdomen/GI: Soft, non-tender, with normal bowel sounds. No distension or tympany. No guarding or rebound. No evidence of tenderness throughout. MS/ Extremity: Pulses equal, no cyanosis. Neurovascular intact. Full, normal range of motion. Neuro: Awake and alert, GCS 15, oriented to person, place, time, and situation. Cranial nerves II-XII grossly intact. Motor strength 5/5 in all extremities. Sensory grossly intact. Cerebellar exam normal. Normal gait. Vital Signs: 13:35 BP 123 / 68; Pulse 99; Resp 17; Temp 98.2; Pulse Ox 96% ; Weight 83.91 kg (R); Height 6 jg9 ft. 5 in. (195.58 cm) (R); 14:00 BP 125 / 104; Pulse 83; Resp 16; Pulse Ox 100% ; ic1 15:24 BP 129 / 89; Pulse 84; Resp 18; Pulse Ox 99% on R/A; ic1 17:11 BP 123 / 79; Pulse 64; Resp 16; Pulse Ox 98% on R/A; ic1 18:29 BP 113 / 85; Pulse 72; Resp 16; Pulse Ox 96% on R/A; ic1 20:08 BP 123 / 92 LA Supine (auto/reg); Pulse 71 MON; Resp 18 S; Pulse Ox 99% on R/A; Pain sv1 0/10; 13:35 Body Mass Index 21.94 (83.91 kg, 195.58 cm) j9 MDM: 13:54 Patient medically screened. ma2 15:44 Data reviewed: vital signs, nurses notes, EMS record. Data reviewed: Work-up ma2 unremarkable however patient is confused will admit for altered mental status, discussed with Dr. Matos. Counseling: I had a detailed discussion with the patient and/or guardian regarding: the historical points, exam findings, and any diagnostic results supporting the discharge/admit diagnosis, the presence of at least one elevated blood pressure reading (>120/80) during this emergency department visit, lab results, radiology results. Response to treatment: the patient's symptoms have markedly improved after treatment. 07/14 13:56 Order name: Amylase, Serum; Complete Time: 15:30 ma2 07/14 13:56 Order name: Basic Metabolic Panel; Complete Time: 15:30 vt2 07/14 13:56 Order name: Blood Culture Adult (2) vt2 07/14 13:56 Order name: CBC with Diff; Complete Time: 15:30 ma2 07/14 13:56 Order name: CPK; Complete Time: 15:30 vt2 07/14 13:56 Order name: Ckmb; Complete Time: 15:30 vt2 07/14 13:56 Order name: LFT's; Complete Time: 15:30 vt2 07/14 13:56 Order name: Lactate; Complete Time: 15:30 vt2 07/14 13:56 Order name: Lipase; Complete Time: 15:30 vt2 07/14 13:56 Order name: Procalcitonin; Complete Time: 16:34 ma2 07/14 13:56 Order name: Protime (+inr); Complete Time: 15:30 vt2 07/14 13:56 Order name: Ptt, Activated; Complete Time: 15:30 ma2 07/14 13:56 Order name: Troponin HS; Complete Time: 15:30 vt2 07/14 13:56 Order name: Urine Microscopic Only vt2 07/14 13:56 Order name: Chest Single View XRAY; Complete Time: 15:30 vt2 07/14 13:56 Order name: SARS-COV-2 RT PCR (Document "Date of Onset" if Symptomatic); Complete Time: ma2 16:34 07/14 14:16 Order name: CT Head Brain wo Cont; Complete Time: 15:30 vt2 07/14 19:17 Order name: Physical Therapy Consult [facility] 07/14 19:17 Order name: Social Service Consult [facility] 07/14 19:17 Order name: Thyroid Stimulating Hormone [facility] 07/14 19:17 Order name: CBC with Automated Diff [facility] 07/14 19:17 Order name: CBC with Automated Diff [facility] 07/14 19:17 Order name: CBC with Automated Diff [facility] 07/14 19:17 Order name: CBC with Automated Diff EDMS 07/14 19:21 Order name: CONS Rehab Consult EDMS 07/14 13:56 Order name: Accucheck; Complete Time: 15:56 ma2 07/14 13:56 Order name: Cardiac monitoring; Complete Time: 19:38 ma2 07/14 13:56 Order name: EKG - Nurse/Tech; Complete Time: 14:16 ma2 07/14 13:56 Order name: IV Saline Lock - Large Bore; Complete Time: 14:16 ma2 07/14 13:56 Order name: Labs collected and sent; Complete Time: 14:16 ma2 07/14 13:56 Order name: O2 Per Protocol; Complete Time: 14:16 ma2 07/14 13:56 Order name: O2 Sat Monitoring; Complete Time: 14:16 ma2 07/14 19:26 Order name: Heart Healthy; Complete Time: 19:37 EDMS Administered Medications: 14:52 Drug: NS 0.9% 1000 ml Route: IV; Rate: 1 bolus; Site: left antecubital; ic1 20:19 Follow up: IV Status: Completed infusion sv1 14:52 Drug: Rocephin (cefTRIAXone) 1 grams Route: IV; Rate: calculated rate; Site: left ic1 antecubital; 19:37 Follow up: Response: No adverse reaction sv1 15:04 Dru mg of (AZITHromycin 500 mg, NS 0.9% 250 ml) Route: IVPB; Infused Over: 1 hrs; ic1 Site: left antecubital; 17:10 Follow up: IV Status: Completed infusion; IV Intake: 250ml ic1 19:37 Follow up: Response: No adverse reaction sv1 15:24 Not Given (Patient Refused): morphine 4 mg IVP once; RASS on ADMIN: Combtv4, Very ic1 Agttd3, Agttd2, Rstlss1, AlertClm0, Drwsy-1, Lt Sdtn-2, Mod Sdtn-3, Dp Sdtn-4, UnArsble-5 15:24 Not Given (Patient Refused): Zofran (Ondansetron) 4 mg IVP once; over 2 minutes ic1 Disposition Summary: 07/14/21 15:45 Hospitalization Ordered Hospitalization Status: Observation ma2 Provider: Jonathan Matos ma2 Location: Telemetry/MedSurg (observation) ma2 Condition: Stable ma2 Problem: new ma2 Symptoms: are unchanged ma2 Bed/Room Type: Standard ma2 Room Assignment: 220(07/14/21 19:52) eb1 Diagnosis - Altered mental status, unspecified ma2 Forms: - Medication Reconciliation Form ma2 - SBAR form ma2 Signatures: Dispatcher [employer] EDMS Jaiden Bello MD MD ma2 Eve Multani RN RN eb1 Millie Leyva RN RN jg9 Ishan Alas RN RN sv1 Shasha Wooten RN RN ic1 Corrections: (The following items were deleted from the chart) 19:52 15:45 ma2 eb1
--- NOTE | 2021-07-14 15:46 | ER ---
Nurse's Notes [facility] Name: Kota Caldwell Age: 66 yrs Sex: Male : 1955 Arrival Date: 07/14/2021 Time: 13:27 Bed 15 Private MD: Diagnosis: Altered mental status, unspecified Presentation: 07/14 13:35 Chief complaint: Brother reports patient has been jax- bedridden for 1 month since g9 falling, patient was checked out 1 week after falling and everything was normal except a broken rib, and I've been trying to get him into rehab. Patient has gone down hill since falling, patient not getting up and moving. Patient was "spacing out" this morning but now he is more alert than he was at home. Chief complaint:. Coronavirus screen: Vaccine status: Patient reports receiving the 2nd dose of the covid vaccine. Ebola Screen: Patient negative for fever greater than or equal to 101.5 degrees Fahrenheit, and additional compatible Ebola Virus Disease symptoms Patient denies exposure to infectious person. Patient denies travel to an Ebola-affected area in the 21 days before illness onset. Initial Sepsis Screen: Does the patient meet any 2 criteria? No. Patient's initial sepsis screen is negative. Does the patient have a suspected source of infection? No. Patient's initial sepsis screen is negative. Risk Assessment: Do you want to hurt yourself or someone else? Patient reports no desire to harm self or others. Onset of symptoms is unknown. 13:35 Method Of Arrival: [facility] [place] 13:35 Acuity: HERMELINDO 3 jg9 Triage Assessment: 13:40 The onset of the patients symptoms was July 14, 2021 at 11:00. General: Appears in jg9 no apparent distress. Behavior is calm. Pain: Denies pain. Neuro: Reports weakness. Historical: - Allergies: 13:39 No Known Allergies; jg9 - PMHx: 13:39 DVT; Hypertension; Lupus; jg9 - PSHx: 13:39 back surgery; Left BKA; neck surgery; jg9 - Immunization history:: Adult Immunizations up to date. - Social history:: Smoking status: Patient reports the use of cigarette tobacco products, smokes one-half pack cigarettes per day. - Family history:: not pertinent. Screenin:41 Abuse screen: Denies threats or abuse. Denies injuries from another. Nutritional jg9 screening: No deficits noted. Tuberculosis screening: No symptoms or risk factors identified. Fall Risk Assessment: 14:00 General: Appears in no apparent distress. comfortable, Behavior is calm, cooperative, ic1 quiet. Pain: Denies pain. Neuro: Level of Consciousness is awake, obeys commands, confused, Oriented to person. Cardiovascular: Capillary refill < 3 seconds Clubbing of nail beds is absent JVD is absent Patient's skin is warm and dry. Respiratory: Airway is patent Trachea midline Respiratory effort is even, unlabored, Respiratory pattern is regular. GI: No deficits noted. : No deficits noted. EENT: No deficits noted. Derm: No deficits noted. Musculoskeletal: No deficits noted. 15:04 Reassessment: While preparing to administer pain medications for pt who reports he is ic1 pain, family member stated he takes a lot of pain medication at home and thinks that is why he brought the patient in for evaluation. Pt awake and oriented to self. Disoriented to location and time. MD notified and medications held. 17:09 Reassessment: Pt's son can be contacted at [phone], Sylvain Caldwell. ic1 17:10 Reassessment:. ic1 17:10 Reassessment:. ic1 18:29 Reassessment: Patient appears in no apparent distress at this time. Patient and/or ic1 family updated on plan of care and expected duration. Pain level reassessed. Patient is alert, oriented x 3, equal unlabored respirations, skin warm/dry/pink. Patient denies pain at this time. 20:07 Reassessment: Report called to Evelin MURRIETA . TEDDY printed.. sv1 Vital Signs: 13:35 BP 123 / 68; Pulse 99; Resp 17; Temp 98.2; Pulse Ox 96% ; Weight 83.91 kg (R); Height 6 jg9 ft. 5 in. (195.58 cm) (R); 14:00 BP 125 / 104; Pulse 83; Resp 16; Pulse Ox 100% ; ic1 15:24 BP 129 / 89; Pulse 84; Resp 18; Pulse Ox 99% on R/A; ic1 17:11 BP 123 / 79; Pulse 64; Resp 16; Pulse Ox 98% on R/A; ic1 18:29 BP 113 / 85; Pulse 72; Resp 16; Pulse Ox 96% on R/A; ic1 20:08 BP 123 / 92 LA Supine (auto/reg); Pulse 71 MON; Resp 18 S; Pulse Ox 99% on R/A; Pain sv1 0/10; 13:35 Body Mass Index 21.94 (83.91 kg, 195.58 cm) j9 ED Course: 13:27 Patient arrived in ED. ds1 13:39 Triage completed. jg9 13:41 Arm band placed on right wrist. jg9 13:52 Shasha Wooten, RN is Primary Nurse. ic1 13:54 Jaiden Bello MD is Attending Physician. ma2 14:00 Patient has correct armband on for positive identification. Bed in low position. Call ic1 light in reach. Side rails up X2. Adult w/ patient. 14:00 Inserted saline lock: 20 gauge in left antecubital area, using aseptic technique. Blood ic1 collected. 14:29 CT Head Brain wo Cont In Process Unspecified. EDMS 15:09 Chest Single View XRAY In Process Unspecified. EDMS 15:10 Door closed. Lights dimmed. Warm blanket given. Pt moved from chair and placed into bed.ic1 15:45 Jonathan Matos MD is Hospitalizing Provider. ma2 19:37 CBC with Automated Diff Sent. sv1 19:37 CBC with Automated Diff Sent. sv1 19:37 CBC with Automated Diff Sent. sv1 19:37 CBC with Automated Diff Sent. sv1 19:37 Thyroid Stimulating Hormone Sent. sv1 20:09 No provider procedures requiring assistance completed. Patient admitted, IV remains in sv1 place. Administered Medications: 14:52 Drug: NS 0.9% 1000 ml Route: IV; Rate: 1 bolus; Site: left antecubital; ic1 20:19 Follow up: IV Status: Completed infusion sv1 14:52 Drug: Rocephin (cefTRIAXone) 1 grams Route: IV; Rate: calculated rate; Site: left ic1 antecubital; 19:37 Follow up: Response: No adverse reaction sv1 15:04 Dru mg of (AZITHromycin 500 mg, NS 0.9% 250 ml) Route: IVPB; Infused Over: 1 hrs; ic1 Site: left antecubital; 17:10 Follow up: IV Status: Completed infusion; IV Intake: 250ml ic1 19:37 Follow up: Response: No adverse reaction sv1 15:24 Not Given (Patient Refused): morphine 4 mg IVP once; RASS on ADMIN: Combtv4, Very ic1 Agttd3, Agttd2, Rstlss1, AlertClm0, Drwsy-1, Lt Sdtn-2, Mod Sdtn-3, Dp Sdtn-4, UnArsble-5 15:24 Not Given (Patient Refused): Zofran (Ondansetron) 4 mg IVP once; over 2 minutes ic1 Intake: 17:10 IV: 250ml; Total: 250ml. ic1 Outcome: 15:45 Decision to Hospitalize by Provider. ma2 20:09 Admitted to Med/surg accompanied by nurse. sv1 20:09 Condition: good 20:09 Instructed on the need for admit. 20:51 Patient left the ED. sv1 Signatures: Dispatcher [employer] [facility] Jax Wan ds1 Jaiden Bello MD MD ma2 Millie Leyva RN RN jg9 Ishan Alas RN RN sv1 Shasha Wooten RN RN ic1 Corrections: (The following items were deleted from the chart) 17:10 17:09 Reassessment: Pt's son can be contacted at [phone] ic1 ic1
[2021-07-14] MEDS ORDERED: HYDROCODONE/APAP 10/325 TAB PO PRN (19:13)
[2021-07-14] MEDS: GABAPENTIN 250 MG/5 ML PO SCH (21:00)
[2021-07-14] MEDS: MAGNESIUM OXIDE 400 MG TAB PO SCH (22:02)
[2021-07-14] MEDS ORDERED: ESZOPICLONE 1 MG TAB PO PRN (22:44)
[2021-07-14 23:03] VITALS: BMI 21.9
[2021-07-15 07:28] LABS: Absolute Lymphocytes (CBC) 1.8 K/uL (0.7-4.9); Hematocrit 37.6 % (39.6-49.0); Lymphocytes % 34.5 % (15.3-44.8); MPV 7.8 fL (7.6-11.3); RBC Red Blood Cell Count 4.43 M/uL (4.33-5.43)
[2021-07-15] MEDS: VITAMIN B COMPLEX 1 CAP PO SCH (08:34)
[2021-07-15] MEDS: lisinopriL 20 MG TAB PO SCH (08:40)
[2021-07-15] MEDS: MAGNESIUM OXIDE 400 MG TAB PO SCH ×2 (08:40→20:06)
[2021-07-15] MEDS: TAMSULOSIN 0.4 MG SR CAP PO SCH (08:41)
[2021-07-15] MEDS: CLOPIDOGREL 75 MG TABLET PO SCH (08:42)
[2021-07-15] MEDS: GABAPENTIN 250 MG/5 ML PO SCH ×3 (08:42→20:06)
[2021-07-15] MEDS: BACLOFEN 10 MG TAB PO SCH (08:43)
[2021-07-15] MEDS: hydroCHLOROthiazide 25 MG TAB PO SCH (08:43)
--- NOTE | 2021-07-15 16:58 | RAD REPORT ---
EXAM DESCRIPTION: MRI - Lumbar Spine Wo Con- 07/15/2021 4:50 pm CLINICAL HISTORY: back pain Back pain, radiculopathy COMPARISON: MRI LUMBAR SPINE W O CON dated 04/24/2012 FINDINGS: Vertebral body heights are within normal limits. Mild heterogenous marrow pattern is observed. No fracture is suspected. The conus medullaris terminates at a normal level. No thickening of the cauda equina or clumping of n erve roots seen. L1-2 level: Posterior disc bulge is present resulting in mild canal narrowing. No significant exit fo raminal stenosis. L2-3 level: Small posterior disc bulge is present asymmetric to the left. No significant canal stenos is. L3-4 level: Central disc protrusion measuring 5 mm is present. This mildly narrows the central canal. No significant exit foraminal stenosis. L4-5 level: Mild posterior disc bulge is present. Mild narrowing the left exit foramen. L5-S1 level: No significant findings. Blooming artifact from hardware is noted at L5. IMPRESSION: No acute lumbar spine abnormality is seen. Mild to moderate spondylosis is present at multiple levels, most notable L3-4 as detailed.
[2021-07-15 22:17] VITALS: O2SAT 95
[2021-07-16 06:52] LABS: Hematocrit 37.7 % (39.6-49.0); RBC Red Blood Cell Count 4.48 M/uL (4.33-5.43)
[2021-07-16 06:53] LABS: MPV 8.2 fL (7.6-11.3)
[2021-07-16] MEDS: GABAPENTIN 250 MG/5 ML PO SCH (08:03)
[2021-07-16] MEDS: hydroCHLOROthiazide 25 MG TAB PO SCH (08:20)
[2021-07-16] MEDS: MAGNESIUM OXIDE 400 MG TAB PO SCH (08:20)
[2021-07-16] MEDS: VITAMIN B COMPLEX 1 CAP PO SCH (08:21)
[2021-07-16] MEDS: BACLOFEN 10 MG TAB PO SCH (08:21)
[2021-07-16] MEDS: TAMSULOSIN 0.4 MG SR CAP PO SCH (08:21)
[2021-07-16] MEDS: CLOPIDOGREL 75 MG TABLET PO SCH (08:21)
[2021-07-16] MEDS: lisinopriL 20 MG TAB PO SCH (08:21)
[2021-07-16 12:06] LABS: Platelet Estimate ADEQ; Smudge Cells PRESENT
[2021-07-16 12:09] LABS: Anisocytosis 1+; Blood Morphology Comment NOTED (NOT SEEN); Hypochromasia 1+
[2021-07-16 12:43] VITALS: BP 106/67; TEMP 97.6
--- NOTE | 2021-07-16 13:35 | P.DS ---
Admission Date: 07/14/21 Discharge Date: 07/16/21 Disposition: ROUTINE DISCHARGE Discharge Condition: GOOD Brief History of Present Illness: MR SANDHU IS DEBILITATED FROM C SPINE FRACTURE, STENOSIS , AND LS SPINE ISSUES. HE ALSO HAS L BKA. HE HAS WITH HEAVY SMOKING AND ARTHRITIS ABUSED HIS BODY. HE IS NOT ABLE TO THRIVE AT HOME. [place] GO TO [place]. I TALKED TO DR. MAN NEIL AND SHE DENIED REHAB BUT APPROVED CORRECTION PT. Vital Signs/Physical Exam: Temp Pulse Resp BP Pulse Ox 97.6 F 74 18 106/67 94 07/16/21 12:00 07/16/21 12:00 07/16/21 12:00 07/16/21 12:00 07/16/21 12:00 Laboratory Data at Discharge: WBC 8.10 K/uL (4.3-10.9) D 07/16/21 06:03 Hgb 12.4 g/dL (13.6-17.9) L 07/16/21 06:03 Hct 37.7 % (39.6-49.0) L 07/16/21 06:03 Plt Count 295 K/uL (152-406) D 07/16/21 06:03 PT 12.8 SECONDS (9.5-12.5) H 07/14/21 14:09 INR 1.11 07/14/21 14:09 APTT 37.8 SECONDS (24.3-36.9) H 07/14/21 14:09 Sodium 135 mmol/L (136-145) L 07/14/21 14:09 Potassium 4.0 mmol/L (3.5-5.1) 07/14/21 14:09 BUN 16 mg/dL (7-18) 07/14/21 14:09 Creatinine 0.86 mg/dL (0.55-1.3) 07/14/21 14:09 Glucose 97 mg/dL (74-106) 07/14/21 14:09 Total Bilirubin 0.6 mg/dL (0.2-1.0) 07/14/21 14:09 AST 20 U/L (15-37) 07/14/21 14:09 ALT 16 U/L (12-78) 07/14/21 14:09 Alkaline Phosphatase 257 U/L (45-117) H 07/14/21 14:09 Amylase 88 U/L (25-115) 07/14/21 14:09 Lipase 89 U/L (73-393) 07/14/21 14:09 Home Medications: Lisinopril/Hydrochlorothiazide [Lisinopril-Hctz 20-25 mg Tab] 1 tab PO DAILY 04/24/12 Gabapentin 300 mg PO TID 11/10/14 Vitamin B Complex [B Complex] 1 each PO DAILY 11/10/14 Clopidogrel Bisulfate [Plavix*] 75 mg PO DAILY #30 tablet 11/11/14 Magnesium Oxide [Mag 0X*] 400 mg PO BID #60 tab 11/11/14 Baclofen [Lioresal*] 10 mg PO DAILY #30 tab 08/18/15 Hydrocodone 10/APAP 325 [[place] 10/325*] 1 tab PO Q4HP PRN #60 tab 08/18/15 Tamsulosin [Flomax*] 0.4 mg PO DAILY #30 cap 08/18/15 Tramadol HCl [Ultram] 50 mg PO Q4HP PRN #30 tablet 08/19/15 Followup: Jem Marcos MD [Primary Care Provider] - (call to schedule appointment)
== END 2021-07-16 12:40 | disposition home or self-care (01) ==
LOC: ER 13:25 → ERHOLD 19:14 → 2ND 20:11
PROVIDERS: ADMIT Internal Medicine; ATTEND Internal Medicine
DX: M84.48XS Pathological fracture, other site, sequela (principal); M48.02 Spinal stenosis, cervical region; R53.81 Other malaise; M54.12 Radiculopathy, cervical region; M54.16 Radiculopathy, lumbar region; R41.82 Altered mental status, unspecified; M19.90 Unspecified osteoarthritis, unspecified site; R62.7 Adult failure to thrive; Z68.21 Body mass index [BMI] 21.0-21.9, adult; I10 Essential (primary) hypertension; R60.9 Edema, unspecified; I73.9 Peripheral vascular disease, unspecified; G83.30 Monoplegia, unspecified affecting unspecified side; M35.3 Polymyalgia rheumatica; D68.69 Other thrombophilia; I82.403 Acute embolism and thrombosis of unspecified deep veins of lower extremity, bilateral; N40.0 Benign prostatic hyperplasia without lower urinary tract symptoms; M32.9 Systemic lupus erythematosus, unspecified; F17.210 Nicotine dependence, cigarettes, uncomplicated; Z89.512 Acquired absence of left leg below knee; Z91.81 History of falling; Z79.01 Long term (current) use of anticoagulants; Z79.899 Other long term (current) drug therapy; Z20.822 Contact with and (suspected) exposure to COVID-19
CPT/HCPCS: 96365; 96361; 93005 ×2; 87040 ×2; 85025 ×3; 80048; 36415 ×2; 82150; 82550; 87205 ×2; 85610; 80076; 83605; 85730; 84443; 84484; 82553; 83690; 84145; 70450; 71045; 72148; 97116; 97161; 96375; 99285; 96366; U0003; J0456; J7050; J7030; J2405; G0378 ×4

== ENCOUNTER 2024-03-27 19:39 | Inpatient (IN) | payer OTHER ==
[2024-03-27] MEDS ORDERED: NA CHLORIDE 0.9% 2,000 ML ONE (19:54)
[2024-03-27] MEDS ORDERED: NOREPINEPHRINE BITARTRATE/D5W 4 MG/250 ML KIT IV ONE (20:09)
[2024-03-27] MEDS ORDERED: ATROPINE SULF 1 MG/10 ML SYR IV ONE (20:25)
[2024-03-27] MEDS ORDERED: Calcium Chloride 10% INJ SYR IV ONE (20:25)
[2024-03-27 20:33] LABS: Absolute Eosinophils 0.1 K/uL (0-0.5); Absolute Lymphocytes (CBC) 1.5 K/uL (0.7-4.9); Absolute Neutrophil 5.2 K/uL (1.8-8.0); Basophils % 0.4 % (0-1.3); Hematocrit 35.4 % (39.6-49.0); Hemoglobin 12.2 g/dL (13.6-17.9); Lymphocytes % 19.8 % (15.3-44.8); MCH 31.4 pg (27.0-35.0); MCHC 34.6 g/dL (32.0-36.0); MCV 90.9 fL (80-100); MPV 7.9 fL (7.6-11.3); Monocytes % 12.4 % (3.3-12.3); Neutrophils % 66.4 % (41.7-73.7); Platelets 245 thou/uL (152-406); RBC Red Blood Cell Count 3.89 M/uL (4.33-5.43); Red Cell Distribution Width 14.1 % (12.1-15.2)
[2024-03-27 20:37] LABS: Protime INR 1.26
[2024-03-27 20:48] LABS: Albumin 2.4 g/dL (3.4-5.0); Albumin/Globulin Ratio 0.7 (1.1-1.8); Alkaline Phosphatase 51 U/L (45-117); Anion Gap 11.5 mEq/L (5.0-15.0); BUN Blood Urea Nitrogen 21 mg/dL (7-18); Bicarbonate 28 mEq/L (21-32); Bilirubin Total 0.3 mg/dL (0.2-1.0); Globulin 3.3 g/dL (2.3-3.5); Glomerular Filtration Rate 39 ml/min (=/>90); Glucose Level 157 mg/dL (74-106); Magnesium 2.1 mg/dL (1.6-2.4); NT PRO-BNP 76 pg/mL (<125); Protein, Total 5.7 g/dL (6.4-8.2); Sodium Level 133 mEq/L (136-145); Troponin High Sensitivity 3.3 pg/mL (<58.9)
[2024-03-27 20:50] LABS: ALT/SGPT < 14 U/L (16-61); AST/SGOT < 10 U/L (15-37); Bilirubin Direct < 0.2 mg/dL (0-0.2); Bilirubin Indirect, Calculated 0.1 mg/dL (0.2-0.8)
[2024-03-27 20:52] LABS: Potassium 2.5 mEq/L (3.5-5.1)
[2024-03-27] MEDS ORDERED: ALBUMIN HUMAN 25% 100 ML IV ONE (21:04)
[2024-03-27 21:13] LABS: Specific Gravity 1.006 (1.005-1.030); Sqamous Epithelial None Seen /HPF (None Seen); Urine Bacteria None Seen /HPF (<20); Urine Bilirubin NEGATIVE (Negative); Urine Blood Negative (Negative); Urine Clarity Clear (Clear); Urine Color Colorless (Yellow); Urine Crystals Unidentified Few /HPF (None Seen); Urine Culture Reflex Order NOT NEEDED; Urine Glucose 1+ (Negative); Urine Ketones NEGATIVE (Negative); Urine Micro Reflex YN NO BILL MICROSCOPIC; Urine Mucus Slight /HPF (None Seen); Urine Nitrite NEGATIVE (Negative); Urine Protein NEGATIVE (Negative); Urine RBC <5 /HPF (None Seen); Urine Urobilinogen Normal (Normal); Urine WBC <5 /HPF (<5); Urine Yeast (Budding) Trace /HPF (None Seen)
[2024-03-27 21:20] LABS: Barbiturates NEGATIVE (NEGATIVE); Benzodiazepines NEGATIVE (NEGATIVE); Cocaine NEGATIVE (NEGATIVE); METHAMPHETAM NEGATIVE (NEGATIVE); Methadone NEGATIVE (NEGATIVE); Opiates NEGATIVE (NEGATIVE); Phencyclidine NEGATIVE (NEGATIVE); THC Cannibis NEGATIVE (NEGATIVE)
[2024-03-27] MEDS ORDERED: KCL 20 MEQ/100 mL IVPB 100 ML IV ONE ×2 (22:08→22:33)
[2024-03-27] MEDS ORDERED: NA CHLORIDE 0.9% 1,000 ML ONE (22:09)
[2024-03-27] MEDS ORDERED: MUPIROCIN 2% OINT 22GM TUBE TOP ONE (22:33)
--- NOTE | 2024-03-27 23:22 | ER ---
Nurse's Notes [facility] Name: Kota Caldwell Age: 69 yrs Sex: Male : 1955 Arrival Date: 03/27/2024 Time: 19:39 Bed 19 Private MD: Diagnosis: Hypokalemia;Cardiogenic shock;Acute acetaminophen dose, acute opiate overdose, acute syncopal episode, adverse reaction to medication, acute hypertensive episode Presentation: 03/27 20:00 Chief complaint: EMS states: patient took 6 [place] 7.5-325 and 6 Tizanidine 4mg at 1630 al5 this afternoon. patient denies suicidal ideation, stated to EMS that his back was hurting so much that he just wanted the pain to stop. patient girlfriend states the amount of medications that he took this evening is what he normally takes in a 24 hour day. Coronavirus screen: At this time, the client does not indicate any symptoms associated with coronavirus-19. Ebola Screen: No symptoms or risks identified at this time. Initial Sepsis Screen: Does the patient meet any 2 criteria? Systolic BP < 90 mmHg. Does the patient have a suspected source of infection? No. Patient's initial sepsis screen is negative. Risk Assessment: Do you want to hurt yourself or someone else? Patient reports no desire to harm self or others. Onset of symptoms was March 27, 2024. 20:00 Method Of Arrival: EMS: [facility] al5 20:00 Acuity: HERMELINDO 1 al5 20:00 Care prior to arrival: Medication(s) given: zofran 4 mg, 1mg Narcan x2 IV IV initiated. al5 20 GA, in the left antecubital area, 20G R wrist. Triage Assessment: 20:00 General: Appears in no apparent distress. Behavior is calm, cooperative. Pain: al5 Complains of pain in generalized. EENT: No signs and/or symptoms were reported regarding the EENT system. Neuro: Level of Consciousness is awake, alert, obeys commands, Oriented to person, place, time, situation. Cardiovascular: Patient's skin is warm and dry. Respiratory: Airway is patent Respiratory effort is even, unlabored, Respiratory pattern is regular, symmetrical. GI: No signs and/or symptoms were reported involving the gastrointestinal system. : No signs and/or symptoms were reported regarding the genitourinary system. Derm: Skin is intact, Skin is dry, Skin is slightly yellow Skin temperature is cool. 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 Historical: - Home Meds: 20:34 Eliquis 2.5 mg Oral tab 1 tab once daily [Active]; lisinopril 2.5 mg Oral tab 1 tab al5 once daily [Active]; duloxetine 60 mg oral capsule,delayed release (e.c.) [Active]; dutasteride 0.5 mg oral capsule [Active]; famotidine 20 mg Oral tablet 2 times per day [Active]; aripiprazole 5 mg oral tablet [Active]; Movantik 25 mg oral tablet [Active]; atorvastatin 20 mg oral tablet [Active]; tamsulosin 0.4 mg oral capsule [Active]; ropinirole 1 mg oral tablet [Active]; - PMHx: 20:34 DVT; Hypertension; Lupus; al5 - PSHx: 20:34 back surgery; Left BKA; neck surgery; al5 - Immunization history:: Adult Immunizations up to date. - Infectious Disease History:: Denies. - Social history:: Smoking status: Patient reports the use of cigarette tobacco products, smokes 1.5 packs per day. - Family history:: not pertinent. Screenin:42 [facility] ED Fall Risk Assessment (Adult) History of falling in the last 3 months, al5 including since admission No falls in past 3 months (0 pts) Confusion or Disorientation No (0 pts) Intoxicated or Sedated No (0 pts) Impaired Gait Yes (1 pt) Mobility Assist Device Used Yes (1 pt) Altered Elimination No (0 pt) Score/Fall Risk Level 0 - 2 = Low Risk Oriented to surroundings, Maintained a safe environment, Hourly rounding (assess needs \\T\\ fall precautionary measures) done. Abuse screen: Denies threats or abuse. Denies injuries from another. Nutritional screening: No deficits noted. Tuberculosis screening: No symptoms or risk factors identified. Assessment: 20:42 Reassessment: see triage assessment. al5 21:08 Reassessment: Patient appears in no apparent distress at this time. Patient and/or al5 family updated on plan of care and expected duration. Pain level reassessed. Patient is alert, oriented x 3, equal unlabored respirations, skin warm/dry/pink. patient improvement with fluids and levophed. 21:51 Reassessment: Patient appears in no apparent distress at this time. Patient and/or al5 family updated on plan of care and expected duration. Pain level reassessed. Patient is alert, oriented x 3, equal unlabored respirations, skin warm/dry/pink. patient eating at this time Patient states symptoms have improved. 22:26 Reassessment: Patient appears in no apparent distress at this time. No changes from al5 previously documented assessment. Patient and/or family updated on plan of care and expected duration. Pain level reassessed. Patient is alert, oriented x 3, equal unlabored respirations, skin warm/dry/pink. 23:55 Reassessment: Patient appears in no apparent distress at this time. Patient and/or al5 family updated on plan of care and expected duration. Pain level reassessed. Patient is alert, oriented x 3, equal unlabored respirations, skin warm/dry/pink. patient sleeping at this time. 03/28 00:34 Reassessment: contacted poison control. . recommendations for al5 updated ekg and etco2 if going to give pain medicines. no qt prolonging agents for 24 hours. optimize electrolytes. 00:41 Reassessment: unable to get [facility]. automated options al5 do not allow this nurse to report controlled substance overdoses. 01:00 Reassessment: report given to peterson guajardo. al5 Overdose: 03/27 20:00 [place] Suicide Severity Screening: "In the past month, have you wished you were al5 or wished you could go to sleep and not wake up?" Patient responds "no." "In the past month, have you actually had any thoughts of killing yourself?" Patient responds "no." "In your lifetime, have you ever done anything, started to do anything, or prepared to do anything to end your life?" Patient responds "no.". Patient took 6 norco 7.5-325, 6 tizanidine 4mg. Vital Signs: 19:40 BP 54 / 38; Pulse 50; Resp 12; Pulse Ox 94% on R/A; al5 19:45 BP 57 / 43; Pulse 50; Resp 12; Pulse Ox 94% on R/A; al5 20:00 BP 37 / 21; Pulse 52; Resp 11; Temp 96.8; Pulse Ox 96% on R/A; Weight 81.19 kg; Height al5 6 ft. 5 in. ; 20:00 BP 54 / 34; Pulse 51; Resp 12; Pulse Ox 98% on 2 lpm NC; al5 20:08 BP 75 / 60; Pulse 81; Resp 11; Pulse Ox 99% on 2 lpm NC; al5 20:10 BP 45 / 21; Pulse 99; Resp 18; Pulse Ox 97% on 2 lpm NC; al5 20:13 BP 107 / 90; Pulse 49; Resp 16; Pulse Ox 98% on 2 lpm NC; al5 20:20 BP 137 / 117; Pulse 48; Resp 19; Pulse Ox 94% on 2 lpm NC; al5 20:30 BP 130 / 115; Pulse 95; Resp 16; Pulse Ox 100% on 2 lpm NC; al5 20:40 BP 88 / 75; Pulse 94; Resp 19; Pulse Ox 100% on 2 lpm NC; al5 20:50 BP 72 / 49; Pulse 90; Resp 18; Pulse Ox 97% on 2 lpm NC; al5 20:58 BP 127 / 102; Pulse 84; Resp 20; Pulse Ox 92% on 2 lpm NC; al5 21:00 BP 146 / 125; Pulse 85; Resp 18; Pulse Ox 93% on 2 lpm NC; al5 21:15 BP 113 / 86; Pulse 86; Resp 16; Pulse Ox 94% on 2 lpm NC; al5 21:20 BP 109 / 84; Pulse 86; Resp 19; Pulse Ox 94% on 2 lpm NC; al5 21:25 BP 96 / 76; Pulse 88; Resp 17; Pulse Ox 93% on 2 lpm NC; al5 21:30 BP 115 / 69; Pulse 102; Resp 17; Pulse Ox 93% on 2 lpm NC; al5 21:35 BP 109 / 75; Pulse 93; Resp 18; Pulse Ox 92% on 2 lpm NC; al5 21:40 BP 103 / 89; Pulse 89; Resp 16; Pulse Ox 98% on 2 lpm NC; al5 21:50 BP 76 / 59; Pulse 94; Resp 17; Pulse Ox 95% on 2 lpm NC; al5 21:51 Temp 97.6(O); al5 21:52 BP 77 / 67; Pulse 96; Resp 22; Pulse Ox 99% on 2 lpm NC; al5 22:05 BP 66 / 58; Pulse 96; Resp 18; Pulse Ox 96% on 2 lpm NC; al5 22:10 BP 113 / 86; Pulse 91; Resp 20; Pulse Ox 97% on R/A; al5 22:15 BP 104 / 91; Pulse 93; Resp 24; Pulse Ox 87% on 2 lpm NC; al5 22:20 BP 91 / 77; Pulse 103; Resp 19; Pulse Ox 100% on 2 lpm NC; al5 22:25 BP 106 / 93; Pulse 98; Resp 22; Pulse Ox 96% on 2 lpm NC; al5 22:30 BP 116 / 97; Pulse 97; Resp 18; Pulse Ox 100% on 2 lpm NC; al5 22:35 BP 124 / 92; Pulse 90; Resp 14; Pulse Ox 100% on 2 lpm NC; al5 22:40 BP 126 / 104; Pulse 90; Resp 17; Pulse Ox 94% on 2 lpm NC; al5 22:45 BP 127 / 94; Pulse 96; Resp 13; Pulse Ox 100% on 2 lpm NC; al5 22:50 BP 126 / 91; Pulse 93; Resp 12; Pulse Ox 98% on 2 lpm NC; al5 22:55 BP 121 / 92; Pulse 91; Resp 15; Pulse Ox 98% on 2 lpm NC; al5 23:00 BP 121 / 94; Pulse 91; Resp 13; Pulse Ox 98% on 2 lpm NC; al5 23:05 BP 121 / 101; Pulse 91; Resp 12; Pulse Ox 98% on 2 lpm NC; al5 23:10 BP 129 / 89; Pulse 99; Resp 13; Pulse Ox 98% on 2 lpm NC; al5 23:15 BP 120 / 100; Pulse 94; Resp 14; Pulse Ox 100% on 2 lpm NC; al5 23:20 BP 134 / 100; Pulse 93; Resp 12; Pulse Ox 98% on 2 lpm NC; al5 23:25 BP 127 / 98; Pulse 90; Resp 15; Pulse Ox 98% on 2 lpm NC; al5 23:30 BP 140 / 105; Pulse 89; Resp 15; Pulse Ox 98% on 2 lpm NC; al5 23:35 BP 137 / 98; Pulse 89; Resp 15; Pulse Ox 98% on 2 lpm NC; al5 23:40 BP 136 / 105; Pulse 90; Resp 15; Pulse Ox 98% on 2 lpm NC; al5 23:45 BP 127 / 100; Pulse 88; Resp 14; Pulse Ox 98% on 2 lpm NC; al5 23:50 BP 130 / 102; Pulse 92; Resp 19; Pulse Ox 99% on 2 lpm NC; al5 23:55 BP 105 / 90; Pulse 92; Resp 12; Pulse Ox 98% on 2 lpm NC; al5 03/28 00:00 BP 106 / 80; Pulse 91; Resp 15; Pulse Ox 99% on 2 lpm NC; al5 00:05 BP 114 / 90; Pulse 95; Resp 15; Pulse Ox 99% on 2 lpm NC; al5 03/27 20:00 Body Mass Index 21.23 (81.19 kg, 195.58 cm) al5 [place] Coma Score: 03/27 21:15 Eye Response: spontaneous(4). Motor Response: obeys commands(6). Verbal Response: sp4 oriented(5). Total: 15. ED Course: 19:42 Patient arrived in ED. rv1 19:42 Brother asking for updates when available. Sylvain Caldwell: [phone]. rv1 19:58 Rosina Hill, RN is Primary Nurse. al5 19:58 Claudio Delcid MD is Attending Physician. al5 20:00 Arm band placed on right wrist. Patient placed in the treatment room, on a stretcher. al5 20:09 Attending Physician role handed off by Claudio Delcid MD sp4 20:09 Dann Lozano MD is Attending Physician. sp4 20:11 Assisted provider with central line placement. Set up central line tray. Triple lumen al5 line placed in left internal jugular. Line placed by Dann Lozano MD Placement verified by CXR, blood return, Dressed with Tegaderm, Blood was collected. Patient tolerated well. Before procedure, did Practitioner(s) obtain informed consent? Yes. Patient \\T\\ family education about procedure, CLABSI prevention and S/S of infection? Yes. Time-out/Briefing performed prior to start of procedure? Yes. Was handwashing/sanitizing done immediately prior to procedure? Yes. Was patient positioned to in a way to prevent air embolism? Yes. Was procedure site sterilized? Yes, with chlorhexidine. Was the site allowed to dry? Yes. Was local anesthetic and/or sedation utilized? Yes. During the procedure, did the Practitioner(s) maintain a sterile field? Yes. Were unused ports clamped during insertion? Yes. Was a 2nd qualified MD obtained after 3 unsuccessful insertion attempts? No. Was blood aspirated from each lumen? Yes. After the procedure, did the Practitioner(s) clean the site and apply a sterile dressing? Yes. 20:11 Maintain EMS IV. Dressing intact. Good blood return noted. Site clean \\T\\ dry. Gauge \\T\\ al 5 site: 20G LAC, 20G R wrist. Flushed with 10 mL NS. 20:34 Triage completed. al5 20:43 Patient has correct armband on for positive identification. Placed in gown. Bed in low al5 position. Call light in reach. Side rails up X2. Provided Education on: plan of care, medication safety.. Client placed on continuous cardiac and pulse oximetry monitoring. NIBP monitoring applied. gaming department head on. 21:34 XRAY Chest (1 view) In Process Unspecified. EDMS 23:20 Jem Marcos MD is Hospitalizing Provider. sp4 23:55 Patient admitted, IV remains in place. al5 Administered Medications: 19:57 Drug: NS 0.9% IV 1000 ml IV at 1 bolus Per protocol; to be given as a bolus over 60 al5 minutes Route: IV; Rate: 1 bolus; Site: left antecubital; 21:58 Follow up: Response: No adverse reaction; IV Status: Completed infusion; IV Intake: al5 1000ml 20:12 Drug: Norepinephrine IV 0.1 mcg/kg/min IV at calculated rate See Administration al5 Instructions; (Standard concentration 4 mg / 250 mL D5W); Recommended max rate 3 mcg/kg/min; Titrate 0.05 mcg/kg/min as often as every 5 minutes to achieve goal (see titration policy); Goal parameter MAP greater than 65 mmHg. {Note: started at 15 mcg/min per MD order. MD setting up for central line insertion at this time. plan to move levophed to central line once insertion is complete..} Route: IV; Rate: calculated rate; Site: left antecubital; 20:39 Follow up: Response: No adverse reaction; Rate change 5 mcg/min; IV SiteChange: left al5 jugular; IV SiteChange Reason: Patient removed; levophed moved from peripheral L AC access to L jugular central line access. patient did not remove access, but forces this nurse to put reason for IV site change. 21:08 Follow up: Response: No adverse reaction; Blood pressure is elevated; Rate change 7.5 al5 mcg/min 22:01 Follow up: Response: No adverse reaction; Blood pressure is lowered; Rate change 8.5 al5 mcg/min 22:06 Follow up: Response: No adverse reaction; Blood pressure is lowered; Rate change 10 al5 mcg/min 23:55 Follow up: Response: No adverse reaction; Blood pressure is elevated; Rate change 9 al5 mcg/min 03/28 00:01 Follow up: IV Status: Infusion continued upon admission al5 03/27 20:26 Drug: Atropine IVP 1 mg IVP once Route: IVP; Site: right wrist; al5 20:53 Follow up: Response: No adverse reaction; Other; heart elevated al5 20:27 Drug: Calcium Chloride IVP 1 grams IVP once Route: IVP; Site: right wrist; al5 20:53 Follow up: Response: No adverse reaction al5 21:07 Drug: Albumin IVPB 25 grams 100 ml IVPB once; (Note: Albumin 25% concentration) Volume: al5 100 ml; Route: IVPB; Site: left jugular; 21:58 Follow up: Response: No adverse reaction; IV Status: Completed infusion; IV Intake: al5 100ml 21:07 Drug: Albumin IVPB 25 grams 100 ml IVPB once; (Note: Albumin 25% concentration) Volume: al5 100 ml; Route: IVPB; Site: left jugular; 21:56 Follow up: Response: No adverse reaction; IV Status: Completed infusion; IV Intake: al5 100ml 22:19 Drug: Potassium Chloride IV 20 mEq IV at calculated rate once; administer over 1-2 al5 hours Route: IV; Rate: calculated rate; Site: left antecubital; 03/28 00:00 Follow up: Response: No adverse reaction; IV Status: Completed infusion; IV Intake: al5 100ml 03/27 22:20 Drug: NS 0.9% IV 1000 ml IV at 125 ml/hr continuous Route: IV; Rate: 125 ml/hr; Site: al5 left antecubital; 03/28 00:02 Follow up: IV Status: Infusion continued upon admission al5 03/27 22:40 Drug: Mupirocin Topical Ointment 2 % 1 application Topical once Route: Topical; Site: al5 affected area; 03/28 00:01 Follow up: Response: No adverse reaction al5 00:01 Drug: Potassium Chloride IV 20 mEq IV at calculated rate once; administer over 1-2 al5 hours Route: IV; Rate: calculated rate; Site: left antecubital; 01:22 Follow up: Response: No adverse reaction; IV Status: Infusion continued upon admission al5 01:21 Drug: morphine IVP or IV 4 mg IVP once over 4 mins Route: IVP; Infused Over: 4 mins; al5 Site: left antecubital; 01:21 Follow up: Response: No adverse reaction; Medication Administered at Departure al5 01:21 Drug: Ondansetron IVP 4 mg IVP once; over 2 minutes Route: IVP; Site: left antecubital; al5 01:21 Follow up: Response: No adverse reaction; Medication Administered at Departure al5 Medication: 03/27 20:42 VIS not applicable for this client. al5 Intake: 21:56 IV: 100ml; Total: 100ml. al5 21:58 IV: 100ml; Total: 200ml. al5 21:58 IV: 1000ml; Total: 1200ml. al5 03/28 00:00 IV: 100ml; Total: 1300ml. al5 Outcome: 03/27 23:21 Decision to Hospitalize by Provider. sp4 03/28 01:44 Admitted to ICU accompanied by nurse, via stretcher, room 2, Report called to Heidi kennedy Condition: stable Instructed on the need for admit, Demonstrated understanding of instructions, 01:45 Patient left the ED. lg3 Signatures: Dispatcher [employer] Lashanda Myers RN RN lg3 [place] rv1 Dann Lozano MD MD sp4 Rosina Hill RN RN al5 Corrections: (The following items were deleted from the chart) 03/27 20:40 20:34 Home Meds: duloxetine 60 mg oral Capsule, Delayed Release Sprinkle; al5 al5 :56 20:00 [place] Suicide Severity Screening: "In the past month, have you wished you were al5 or wished you could go to sleep and not wake up?" Patient responds "no." "In the past month, have you actually had any thoughts of killing yourself?" Patient responds "no." "In your lifetime, have you ever done anything, started to do anything, or prepared to do anything to end your life?" Patient responds "no." al5 : 20:00 [place] Suicide Severity Screening: "In the past month, have you wished you were al5 or wished you could go to sleep and not wake up?" Patient responds "no." "In the past month, have you actually had any thoughts of killing yourself?" Patient responds "no." al5 : 20:00 Patient took 6 norco 7.5-325, 6 tizanidine 4mg al5 al5 : 20:00 Overdose occurred 1-2 hours ago. al5 al5
--- NOTE | 2024-03-27 23:22 | EDPHYS ---
Physician Documentation [facility] Name: Kota Caldwell Age: 69 yrs Sex: Male : 1955 Arrival Date: 03/27/2024 Time: 19:39 Bed 19 Private MD: ED Physician Dann Lozano HPI: 03/27 20:09 This 69 yrs old Male presents to ER via Unassigned with complaints of sp4 Overdose. 21:15 69-year-old male presents with acute overdose. Patient consumed 6 tablets of Bowie 7.5 sp4 at home at 1630 p.m. also he consumed 6 tablets of tizanidine 4 mg each , and then he developed generalized weakness. EMS was called and they administered Narcan total 2 mg IV. EMS noticed patient was hypertensive and they administered 5 mg IV labetalol. After that time patient's blood pressure sunk and patient was brought here with hypotension and generalized weakness. . Historical: - Home Meds: 20:34 Eliquis 2.5 mg Oral tab 1 tab once daily [Active]; lisinopril 2.5 mg Oral tab 1 tab al5 once daily [Active]; duloxetine 60 mg oral capsule,delayed release (e.c.) [Active]; dutasteride 0.5 mg oral capsule [Active]; famotidine 20 mg Oral tablet 2 times per day [Active]; aripiprazole 5 mg oral tablet [Active]; Movantik 25 mg oral tablet [Active]; atorvastatin 20 mg oral tablet [Active]; tamsulosin 0.4 mg oral capsule [Active]; ropinirole 1 mg oral tablet [Active]; - PMHx: 20:34 DVT; Hypertension; Lupus; al5 - PSHx: 20:34 back surgery; Left BKA; neck surgery; al5 - Immunization history:: Adult Immunizations up to date. - Infectious Disease History:: Denies. - Social history:: Smoking status: Patient reports the use of cigarette tobacco products, smokes 1.5 packs per day. - Family history:: not pertinent. ROS: 21:15 Constitutional: Negative for fever, chills, and weight loss, patient has positive sp4 generalized weakness, and hypotensive on arrival. Reports pain in the neck and the back. 21:15 All other systems are negative, Exam: 21:15 Constitutional: This is a well developed, well nourished patient who is awake, has sp4 generalized pallor, ill-appearing, hypotensive on arrival also bradycardic. Toxic appearing male. Patient is alert and oriented answers questions. Head/Face: Normocephalic, atraumatic. Eyes: Pupils equal round and reactive to light, extra-ocular motions intact. Lids and lashes normal. Conjunctiva and sclera are not injected. Cornea within normal limits. Periorbital areas with no swelling, redness, or edema. ENT: Nares patent. No nasal discharge, no septal abnormalities noted. Tympanic membranes are normal and external auditory canals are clear. Oropharynx with no redness, swelling, or masses, exudates, or evidence of obstruction, uvula midline. Mucous membranes moist. Neck: Trachea midline, no thyromegaly or masses palpated, and no cervical lymphadenopathy. Supple, full range of motion without nuchal rigidity, or vertebral point tenderness. Chest/axilla: Normal chest wall appearance and motion. Nontender with no deformity. No lesions are appreciated. Cardiovascular: Regular rate and rhythm with a normal S1 and S2. No gallops, murmurs, or rubs. Normal PMI, no JVD. No pulse deficits. Respiratory: Lungs have equal breath sounds bilaterally, clear to auscultation and percussion. No rales, rhonchi or wheezes noted. No increased work of breathing, no retractions or nasal flaring. Abdomen/GI: Soft, with normal bowel sounds. No distension or tympany. No guarding or rebound. No evidence of tenderness throughout. Back: No spinal tenderness. No costovertebral tenderness. Male : Normal genitalia with no discharge or lesions. Skin: Warm, dry with normal turgor. Generalized moderate pallor. No cyanosis MS/ Extremity: Pulses equal, no cyanosis. Neurovascular intact. Full, normal range of motion. 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 Cranial nerves II-XII grossly intact. Motor strength 5/5 in all extremities. Sensory grossly intact. Psych: Awake, alert, with orientation to person, place and time. Behavior, mood, and affect are within normal limits 23:25 ECG was reviewed by the Attending Physician. EKG at 1950 is bradycardia rate 50 sp4 otherwise normal Vital Signs: 19:40 BP 54 / 38; Pulse 50; Resp 12; Pulse Ox 94% on R/A; al5 19:45 BP 57 / 43; Pulse 50; Resp 12; Pulse Ox 94% on R/A; al5 20:00 BP 37 / 21; Pulse 52; Resp 11; Temp 96.8; Pulse Ox 96% on R/A; Weight 81.19 kg; Height al5 6 ft. 5 in. ; 20:00 BP 54 / 34; Pulse 51; Resp 12; Pulse Ox 98% on 2 lpm NC; al5 20:08 BP 75 / 60; Pulse 81; Resp 11; Pulse Ox 99% on 2 lpm NC; al5 20:10 BP 45 / 21; Pulse 99; Resp 18; Pulse Ox 97% on 2 lpm NC; al5 20:13 BP 107 / 90; Pulse 49; Resp 16; Pulse Ox 98% on 2 lpm NC; al5 20:20 BP 137 / 117; Pulse 48; Resp 19; Pulse Ox 94% on 2 lpm NC; al5 20:30 BP 130 / 115; Pulse 95; Resp 16; Pulse Ox 100% on 2 lpm NC; al5 20:40 BP 88 / 75; Pulse 94; Resp 19; Pulse Ox 100% on 2 lpm NC; al5 20:50 BP 72 / 49; Pulse 90; Resp 18; Pulse Ox 97% on 2 lpm NC; al5 20:58 BP 127 / 102; Pulse 84; Resp 20; Pulse Ox 92% on 2 lpm NC; al5 21:00 BP 146 / 125; Pulse 85; Resp 18; Pulse Ox 93% on 2 lpm NC; al5 21:15 BP 113 / 86; Pulse 86; Resp 16; Pulse Ox 94% on 2 lpm NC; al5 21:20 BP 109 / 84; Pulse 86; Resp 19; Pulse Ox 94% on 2 lpm NC; al5 21:25 BP 96 / 76; Pulse 88; Resp 17; Pulse Ox 93% on 2 lpm NC; al5 21:30 BP 115 / 69; Pulse 102; Resp 17; Pulse Ox 93% on 2 lpm NC; al5 21:35 BP 109 / 75; Pulse 93; Resp 18; Pulse Ox 92% on 2 lpm NC; al5 21:40 BP 103 / 89; Pulse 89; Resp 16; Pulse Ox 98% on 2 lpm NC; al5 21:50 BP 76 / 59; Pulse 94; Resp 17; Pulse Ox 95% on 2 lpm NC; al5 21:51 Temp 97.6(O); al5 21:52 BP 77 / 67; Pulse 96; Resp 22; Pulse Ox 99% on 2 lpm NC; al5 22:05 BP 66 / 58; Pulse 96; Resp 18; Pulse Ox 96% on 2 lpm NC; al5 22:10 BP 113 / 86; Pulse 91; Resp 20; Pulse Ox 97% on R/A; al5 22:15 BP 104 / 91; Pulse 93; Resp 24; Pulse Ox 87% on 2 lpm NC; al5 22:20 BP 91 / 77; Pulse 103; Resp 19; Pulse Ox 100% on 2 lpm NC; al5 22:25 BP 106 / 93; Pulse 98; Resp 22; Pulse Ox 96% on 2 lpm NC; al5 22:30 BP 116 / 97; Pulse 97; Resp 18; Pulse Ox 100% on 2 lpm NC; al5 22:35 BP 124 / 92; Pulse 90; Resp 14; Pulse Ox 100% on 2 lpm NC; al5 22:40 BP 126 / 104; Pulse 90; Resp 17; Pulse Ox 94% on 2 lpm NC; al5 22:45 BP 127 / 94; Pulse 96; Resp 13; Pulse Ox 100% on 2 lpm NC; al5 22:50 BP 126 / 91; Pulse 93; Resp 12; Pulse Ox 98% on 2 lpm NC; al5 22:55 BP 121 / 92; Pulse 91; Resp 15; Pulse Ox 98% on 2 lpm NC; al5 23:00 BP 121 / 94; Pulse 91; Resp 13; Pulse Ox 98% on 2 lpm NC; al5 23:05 BP 121 / 101; Pulse 91; Resp 12; Pulse Ox 98% on 2 lpm NC; al5 23:10 BP 129 / 89; Pulse 99; Resp 13; Pulse Ox 98% on 2 lpm NC; al5 23:15 BP 120 / 100; Pulse 94; Resp 14; Pulse Ox 100% on 2 lpm NC; al5 23:20 BP 134 / 100; Pulse 93; Resp 12; Pulse Ox 98% on 2 lpm NC; al5 23:25 BP 127 / 98; Pulse 90; Resp 15; Pulse Ox 98% on 2 lpm NC; al5 23:30 BP 140 / 105; Pulse 89; Resp 15; Pulse Ox 98% on 2 lpm NC; al5 23:35 BP 137 / 98; Pulse 89; Resp 15; Pulse Ox 98% on 2 lpm NC; al5 23:40 BP 136 / 105; Pulse 90; Resp 15; Pulse Ox 98% on 2 lpm NC; al5 23:45 BP 127 / 100; Pulse 88; Resp 14; Pulse Ox 98% on 2 lpm NC; al5 23:50 BP 130 / 102; Pulse 92; Resp 19; Pulse Ox 99% on 2 lpm NC; al5 23:55 BP 105 / 90; Pulse 92; Resp 12; Pulse Ox 98% on 2 lpm NC; al5 03/28 00:00 BP 106 / 80; Pulse 91; Resp 15; Pulse Ox 99% on 2 lpm NC; al5 00:05 BP 114 / 90; Pulse 95; Resp 15; Pulse Ox 99% on 2 lpm NC; al5 03/27 20:00 Body Mass Index 21.23 (81.19 kg, 195.58 cm) al5 Aster Coma Score: 03/27 21:15 Eye Response: spontaneous(4). Motor Response: obeys commands(6). Verbal Response: sp4 oriented(5). Total: 15. Procedures: 20:42 Central Line: the site was prepped with Betadine, in sterile fashion, a triple lumen sp4 catheter was inserted, in the left in 1 attempts. placement was verified, by CXR, by blood return, Ultrasound Guided Central Line , the site was dressed with 4X4s, Tegaderm, using sterile technique, the patient tolerated the procedure, well, Central line placed for emergent resuscitation. MDM: 20:11 Medical Screening Exam initiated sp4 23:22 Differential diagnosis: Ingestion/exposure to Opiate polypharmacy, over medication, sp4 hypoglycemia, closed head injury. Data reviewed: vital signs, nurses notes, lab test result(s), EKG, radiologic studies, plain films. 03/28 00:06 ED course: EXAM: XR Chest, 1 View CLINICAL HISTORY: CHEST PAIN TECHNIQUE: Frontal view sp4 of the chest. COMPARISON: No relevant prior studies available. FINDINGS: Lungs: Left-sided volume loss. Coarsened interstitial markings. Patchy left basilar opacification. Pleural space: Left apical pleural opacity and blunting of the left costophrenic angle. No pneumothorax. Heart: Unremarkable. No cardiomegaly. Mediastinum: Unremarkable. Normal mediastinal contour. Bones/joints: Bilateral cervicothoracic posterior fusion hardware. Multiple remote bilateral rib fractures. Soft tissues: Surgical clips project over the right axilla. Vasculature: Thoracic aortic atherosclerosis. Tubes, lines and devices: Possible left internal jugular approach central venous catheter which crosses midline. The tip projects over the mid right subclavian region. IMPRESSION: 1. Possible left internal jugular approach central venous catheter which crosses midline. The tip projects over the mid right subclavian region. 2. Patchy left basilar opacification (atelectasis and/or infiltrate). Left apical pleural opacity and blunting of the left costophrenic angle which may reflect pleural parenchymal scar. Underlying pleural fluid is not excluded. 3. Other findings as above.. 03/27 20:09 Order name: Basic Metabolic Panel; [facility] 03/[facility] 20:09 Order name: CBC with Diff; Complete [facility]: [facility] 03/27 20:09 Order name: LFT's; Complete [facility]05 [facility] 03/27 20:09 Order name: Magnesium; Complete [facility]: [facility]:05 [facility] 03/27 20:09 Order name: NT PRO-BNP; Complete [facility]: [facility]05 [facility] 03/27 20:09 Order name: PT-INR; Complete [facility]: [facility]05 [facility] 03/27 20:09 Order name: Troponin HS; Complete Time: [facility]:05 [facility] 03/27 20:10 Order name: Acetaminophen; Complete [facility]:05 [facility] 03/27 20:10 Order name: Salicylate; Complete [facility]: [facility]:45 [facility] 03/27 20:10 Order name: Urinalysis W/Microscopic; Complete [facility]: [facility]:45 [facility] 03/27 20:10 Order name: Urine Drug Screen; Complete [facility]: [facility]:45 [facility] 03/27 20:11 Order name: Alcohol Level; Complete [facility]: [facility]:05 [facility] 03/27 22:03 Order name: Acetaminophen: collect at 23:50; Complete [facility]:15 [facility] 03/27 20:09 Order name: XRAY Chest (1 view) 4 03/27 23:22 Order name: CT Head Brain wo Cont 4 03/27 20:09 Order name: EKG; Complete Time: 20:10 4 03/27 20:09 Order name: Cardiac monitoring; Complete Time: 20:52 4 03/27 20:09 Order name: EKG - Nurse/Tech; Complete Time: 20:52 4 03/27 20:09 Order name: IV Saline Lock; Complete Time: 20:52 4 03/27 20:09 Order name: Labs collected and sent; Complete Time: 20:52 4 03/27 20:09 Order name: O2 Per Protocol; Complete Time: 20:52 4 03/27 20:09 Order name: O2 Sat Monitoring; Complete Time: 20:52 4 03/27 20:11 Order name: Central Line Dressing Kit; Complete Time: 20:52 4 03/27 20:11 Order name: Central Line Kit; Complete Time: 20:52 4 03/27 20:11 Order name: Chlorhexidine prep; Complete Time: 20:52 4 03/27 20:11 Order name: Consent for central line completed; Complete Time: 20:52 4 03/27 20:11 Order name: Line Caps x3; Complete Time: 20:52 4 03/27 20:11 Order name: NS Flushes x3; Complete Time: 20:52 4 03/27 20:11 Order name: Sterile Gloves; Complete Time: 20:52 4 03/27 20:11 Order name: Sterile Probe Cover; Complete Time: 20:52 sp4 EC/16 23:25 Rate is 50 beats/min. Rhythm is regular, Sinus bradycardia. QRS Speer is Normal. DE sp4 interval is normal. QRS interval is normal. QT interval is normal. No Q waves. T waves are Normal. No ST changes noted. Clinical impression: No evidence of ischemia. Interpreted by me. Reviewed by me. Administered Medications: 19:57 Drug: NS 0.9% IV 1000 ml IV at 1 bolus Per protocol; to be given as a bolus over 60 al5 minutes Route: IV; Rate: 1 bolus; Site: left antecubital; 21:58 Follow up: Response: No adverse reaction; IV Status: Completed infusion; IV Intake: al5 1000ml 20:12 Drug: Norepinephrine IV 0.1 mcg/kg/min IV at calculated rate See Administration al5 Instructions; (Standard concentration 4 mg / 250 mL D5W); Recommended max rate 3 mcg/kg/min; Titrate 0.05 mcg/kg/min as often as every 5 minutes to achieve goal (see titration policy); Goal parameter MAP greater than 65 mmHg. {Note: started at 15 mcg/min per MD order. MD setting up for central line insertion at this time. plan to move levophed to central line once insertion is complete..} Route: IV; Rate: calculated rate; Site: left antecubital; 20:39 Follow up: Response: No adverse reaction; Rate change 5 mcg/min; IV SiteChange: left al5 jugular; IV SiteChange Reason: Patient removed; levophed moved from peripheral L AC access to L jugular central line access. patient did not remove access, but forces this nurse to put reason for IV site change. 21:08 Follow up: Response: No adverse reaction; Blood pressure is elevated; Rate change 7.5 al5 mcg/min 22:01 Follow up: Response: No adverse reaction; Blood pressure is lowered; Rate change 8.5 al5 mcg/min 22:06 Follow up: Response: No adverse reaction; Blood pressure is lowered; Rate change 10 al5 mcg/min 23:55 Follow up: Response: No adverse reaction; Blood pressure is elevated; Rate change 9 al5 mcg/min 03/28 00:01 Follow up: IV Status: Infusion continued upon admission al5 03/27 20:26 Drug: Atropine IVP 1 mg IVP once Route: IVP; Site: right wrist; al5 20:53 Follow up: Response: No adverse reaction; Other; heart elevated al5 20:27 Drug: Calcium Chloride IVP 1 grams IVP once Route: IVP; Site: right wrist; al5 20:53 Follow up: Response: No adverse reaction al5 21:07 Drug: Albumin IVPB 25 grams 100 ml IVPB once; (Note: Albumin 25% concentration) Volume: al5 100 ml; Route: IVPB; Site: left jugular; 21:58 Follow up: Response: No adverse reaction; IV Status: Completed infusion; IV Intake: al5 100ml 21:07 Drug: Albumin IVPB 25 grams 100 ml IVPB once; (Note: Albumin 25% concentration) Volume: al5 100 ml; Route: IVPB; Site: left jugular; 21:56 Follow up: Response: No adverse reaction; IV Status: Completed infusion; IV Intake: al5 100ml 22:19 Drug: Potassium Chloride IV 20 mEq IV at calculated rate once; administer over 1-2 al5 hours Route: IV; Rate: calculated rate; Site: left antecubital; 03/28 00:00 Follow up: Response: No adverse reaction; IV Status: Completed infusion; IV Intake: al5 100ml 03/27 22:20 Drug: NS 0.9% IV 1000 ml IV at 125 ml/hr continuous Route: IV; Rate: 125 ml/hr; Site: al5 left antecubital; 03/28 00:02 Follow up: IV Status: Infusion continued upon admission al5 03/27 22:40 Drug: Mupirocin Topical Ointment 2 % 1 application Topical once Route: Topical; Site: al5 affected area; 03/28 00:01 Follow up: Response: No adverse reaction al5 00:01 Drug: Potassium Chloride IV 20 mEq IV at calculated rate once; administer over 1-2 al5 hours Route: IV; Rate: calculated rate; Site: left antecubital; 01:22 Follow up: Response: No adverse reaction; IV Status: Infusion continued upon admission al5 01:21 Drug: morphine IVP or IV 4 mg IVP once over 4 mins Route: IVP; Infused Over: 4 mins; al5 Site: left antecubital; 01:21 Follow up: Response: No adverse reaction; Medication Administered at Departure al5 01:21 Drug: Ondansetron IVP 4 mg IVP once; over 2 minutes Route: IVP; Site: left antecubital; al5 01:21 Follow up: Response: No adverse reaction; Medication Administered at Departure al5 Disposition Summary: 03/27/24 23:21 Hospitalization Ordered Notes: Hospitalization Status: Inpatient Admission sp4 Provider: Jem Marcos Location: Intensive Care Unit sp4 Condition: Stable sp4 Problem: new sp4 Symptoms: have improved sp4 Bed/Room Type: Standard sp4 Room Assignment: 2-(03/27/24 23:47) kl Diagnosis - Hypokalemia sp4 - Cardiogenic shock sp4 - Acute acetaminophen dose, acute opiate overdose, acute syncopal episode, adverse sp4 reaction to medication, acute hypertensive episode Forms: - Medication Reconciliation Form sp4 - SBAR form sp4 - Leadership Thank You Letter sp4 Critical care time excluding procedures: 03/27 23:19 Critical care time: Bedside Care: 36 minutes, Consultation: 12 minutes, Family sp4 Intervention: 12 minutes. Total time: 60 minutes Addendum: 03/29/2024 03:24 Addendum: Chest X ray after CVL repositioning - EXAM: XR Chest, 1 View CLINICAL s p4 HISTORY: The patient is 69 years old and is Male; Central line placement TECHNIQUE: Single view of the chest. COMPARISON: March 27, 2024. FINDINGS: Lungs: No pulmonary vascular congestion or consolidation. Pleural space: Unremarkable. No pneumothorax. Heart: Cardiomediastinal silhouette is not significantly changed given the differences in technique. Mediastinum: See above. Bones/joints: The bones and joints are unchanged as visualized. Soft tissues: Right axillary surgical clips. Tubes, lines and devices: Left IJ line is at the innominate vein/SVC junction. Upper abdomen: No free air in the visualized upper abdomen. IMPRESSION: 1. No acute cardiopulmonary process identified. 2. Left IJ line is at the innominate vein/SVC junction. . Signatures: Dispatcher [employer] EDMS Faith Humphreys RN Dann Fleming MD MD sp4 Rosina Hill RN RN al5 Corrections: (The following items were deleted from the chart) 03/27 20:40 20:34 Home Meds: duloxetine 60 mg oral Capsule, Delayed Release Sprinkle; alBrittany al5 23:47 23:21 lashay [email or web address]
[2024-03-28] MEDS ORDERED: MORPHINE 4 MG/ML SYR IV PRN (00:51)
[2024-03-28] MEDS ORDERED: ALBUTEROL 2.5 MG/3 ML NEB SOL NEB PRN (00:51)
[2024-03-28] MEDS ORDERED: ONDANSETRON 4 MG/2 ML VIAL IV PRN (00:51)
[2024-03-28] MEDS ORDERED: ONDANSETRON 4 MG/2 ML VIAL ONE (01:11)
[2024-03-28] MEDS: NOREPINEPHRINE BITARTRATE/D5W 4 MG/250 ML KIT IV ONE (01:11)
[2024-03-28] MEDS ORDERED: MORPHINE 4 MG/ML SYR ONE (01:12)
[2024-03-28 02:11] VITALS: BMI 21.3
[2024-03-28] MEDS: NOREPINEPHRINE 4 MG in D5W 250 ML IV SCH (02:30)
--- NOTE | 2024-03-28 02:32 | RAD REPORT ---
EXAM: CT Head Without Intravenous Contrast CLINICAL HISTORY: The patient is 69 years old and is Male; SYNCOPE TECHNIQUE: Axial computed tomography images of the head/brain without intravenous contrast. Sagittal and cor onal reformatted images were created and reviewed. This CT exam was performed using one or more of the following dose reduction techniques: automated exposure control, adjustment of the mA and/or kV according to patient size, and/or use of iterative reconstruction technique. COMPARISON: CT of the head July 14, 2021 FINDINGS: BRAIN: There is diffuse cerebral atrophy present, consistent with this patient's age. There is patchy hypoattenuation of the deep white matter which is non-specific, but most likely owing to chronic small vessel ischemic change in a patient of this age group. No intracranial hemorrhage, ma ss effect, midline shift is seen. There are no extra-axial fluid collections. VENTRICLES: Unremarkable. No ventriculomegaly. BONES/JOINTS: No acute fracture. SOFT TISSUES: Unremarkable. VASCULATURE: Atherosclerosis of intracranial vasculature is present. SINUSES: Unremarkable as visualized. No acute sinusitis. MASTOID AIR CELLS: Unremarkable as visualized. No mastoid effusion. ORBITS: Unremarkable as visualized. IMPRESSION: No acute intracranial findings. Electronically signed by: Rachael Fiore MD 03/28/2024 02:25 AM CDT RP Due to temporary technical issues with the PACS/[employer] reporting system, reports are being lincoln d by the in-house radiologist without review as a courtesy to ensure prompt reporting the interpreting radiologist is fully responsible for the content of the report. Transcribed Date/Time: 03/28/2024 2:32 AM
[2024-03-28] MEDS: ZOLPIDEM TARTRATE 5 MG TABLET PO PRN (02:34)
[2024-03-28] MEDS: D5.45NS W/KCL 20MEQ 1,000 ML IV SCH (02:34)
--- NOTE | 2024-03-28 06:44 | RAD REPORT ---
EXAM: XR Chest, 1 View CLINICAL HISTORY: The patient is 69 years old and is Male; Central line placement TECHNIQUE: Single view of the chest. COMPARISON: March 27, 2024. FINDINGS: Lungs: No pulmonary vascular congestion or consolidation. Pleural space: Unremarkable. No pneumothorax. Heart: Cardiomediastinal silhouette is not significantly changed given the differences in techniq ue. Mediastinum: See above. Bones/joints: The bones and joints are unchanged as visualized. Soft tissues: Right axillary surgical clips. Tubes, lines and devices: Left IJ line is at the innominate vein/SVC junction. Upper abdomen: No free air in the visualized upper abdomen. IMPRESSION: 1. No acute cardiopulmonary process identified. 2. Left IJ line is at the innominate vein/SVC junction. Electronically signed by: Hilary Boateng MD 03/28/2024 06:30 AM CDT ND Due to temporary technical issues with the PACS/[employer] reporting system, reports are being lincoln d by the in-house radiologist without review as a courtesy to ensure prompt reporting the interpreting radiologist is fully responsible for the content of the report. Transcribed Date/Time: 03/28/2024 6:44 AM
[2024-03-28 06:46] LABS: Anion Gap 7.1 mEq/L (5.0-15.0); Potassium 3.1 mEq/L (3.5-5.1)
[2024-03-28] MEDS: KCL 20 MEQ/100 mL IVPB 20 MEQ/100 ML BAG IV SCH (08:05)
[2024-03-28] MEDS: APIXABAN 5 MG TABLET PO SCH (08:05)
--- NOTE | 2024-03-28 09:12 | RAD REPORT ---
EXAMINATION: ONE VIEW CHEST XR CLINICAL INDICATION: CHEST PAIN TECHNIQUE: Frontal chest projection is submitted. Examination is limited by patient positioning and t echnique. COMPARISON: 07/14/2021 FINDINGS: The lungs are emphysematous but clear. The heart is upper limit of normal in size. Old left thoracic rib fractures noted. Right axillary clips. Cervical spine hardware. IMPRESSION: No acute intrathoracic abnormalities.
--- NOTE | 2024-03-28 11:50 | EKG ---
Test Date: 2024-03-27 Test Time: 19:51:55 Groundman/Lineman: ALYSSA MEASUREMENT RESULTS: Intervals: Rate: 50 NE: 200 QRSD: 120 QT: 576 QTc: 525 [place]: P: 39 NE: 200 QRS: 68 T: 58 INTERPRETIVE STATEMENTS: Sinus bradycardia Nonspecific intraventricular conduction delay Borderline ECG Compared to ECG 07/14/2021 15:32:41 Intraventricular conduction delay now present Sinus rhythm no longer present Electronically Signed On 03-28-24 11:49:58 CDT by Migel Ramirez
--- NOTE | 2024-03-28 12:52 | P.HP ---
Patient History Date of Service: 03/28/24 Reason for admission: OVERDOSED ON MEDS BY PAIN DOCTOR History of Present Illness: PRICE HAS SEVERE ARTHRITIS OF THE NECK AND BACK. HE HAS BEEN TO MANY PAIN DOCTORS. CURRENTLY HE IS WITH DR. LIM AND IS GETTING FOUR NORCO AN 4 ZANAFLEX DAILY. HE DECIDED TO TAKE ABOUT 6 OF EACH AT THE SAME TIME LAST NIGHT AND GOT CONFUSED. EMT CAME. THEY GAVE HIM LABETOLOL FOR HIGH BP AND BP DROPPED TO [address] COELLO ADMITTED HIM FOR IV LEVOPHED SO WE CAN BUY SOME TIME TO HAVE ZANAFLEX OUT OF THE SYSTEM THAT HELPED BRING BP DOWN. HE IS IN ICU. BP IS ABOUT 100 SYSTOLIC TODAY. HE IS NOT OFF LEVOPHED YET. I WILL STOP MORPHINE FROM ER IT WILL DROP BP ALSO. HE IS AGREEABLE TO HAVE TAKE OVER MEDICATIONS HE IS FORGETFUL WITH NARCOTICS. Allergies No Known Allergies Allergy (Unverified 08/06/15 17:37) Home Medications: Lisinopril/Hydrochlorothiazide [Lisinopril-Hctz 20-25 mg Tab] 1 tab PO DAILY 04/24/12 Vitamin B Complex [B Complex] 1 each PO DAILY 11/10/14 Tamsulosin [Flomax*] 0.4 mg PO DAILY #30 cap 08/18/15 Apixaban [Eliquis *] 2.5 mg PO DAILY 03/28/24 Hydrocodone Bit/Acetaminophen [Hydrocodon-Acetaminoph 7.5-325] 1 tab PO Q6H PRN 03/28/24 Tizanidine [Zanaflex*] 1 tab PO Q6H PRN 03/28/24 - Past Medical/Surgical History Has patient received pneumonia vaccine in the past: No Diabetic: No -: HTN -: osteoarthritis -: chronic back pain -: blood clots - DVT -: anxiety -: depression -: bipolar disorder -: laminectomy -: left wrist surgery -: right knee surgery -: inferior vena cava filter -: left fx tibia/ fibula surgery -: L BKA - Family History Father -: Hypertension Mother -: Lung disease Notes: COPD - Social History Smoking Status: Current every day smoker Alcohol use: No CD- Drugs: No Caffeine use: Yes Place of Residence: Home Review of Systems 10-point ROS is otherwise unremarkable General: Weakness, As per HPI Physical Examination - Vital Signs Temperature: 97.9 F Blood Pressure: 83/61 Pulse: 74 Respirations: 14 Pulse Ox (%): 98 - Physical Exam General: Cachectic (FRAIL, WEAK, WC BOUND FOR YEARS. ), Mild distress HEENT: Atraumatic, PERRLA, Mucous membr. moist/pink, EOMI, Sclerae nonicteric Neck: Supple, 2+ carotid pulse no bruit, No LAD, Without JVD or thyroid abnormality Respiratory: Clear to auscultation bilaterally, Normal air movement Cardiovascular: Regular rate/rhythm, Normal S1 S2 Gastrointestinal: Normal bowel sounds, No tenderness Musculoskeletal: Other (AMPUTEE L LEG WITH GEN WEAKNESS. ) Integumentary: No rashes Neurological: Normal gait, Normal speech, Normal tone, Normal affect, Abnormal strength Lymphatics: No axilla or inguinal lymphadenopathy - Studies Laboratory Data (last 24 hrs) 03/27/24 03/27/24 03/27/24 20:13 20:13 20:13 WBC 7.80 Hgb 12.2 L Hct 35.4 L Plt Count 245 PT 14.0 H INR 1.26 Sodium 133 L Potassium 2.5 L* BUN 21 H Creatinine 1.87 H Glucose 157 H Magnesium 2.1 Total Bilirubin 0.3 AST < 10 L ALT < 14 L Alkaline Phosphatase 51 Assessment and Plan - Problems (Diagnosis) (1) Accidental overdose Current Visit: Yes Status: Acute Plan: PLAN IS ABOVE I CALLED DR. BUTLER TO LET HIM KNOW ABOUT OVERUSE OF DRUGS. (2) Hypotension Current Visit: Yes Status: Acute Plan: IV LEVOPHED TAPER IF CAN REMOVE ALL MEDS THAT CAN ADD TO LOW BP (3) Hypokalemia Current Visit: Yes Status: Acute Plan: PROTOCOL. - Advance Directives Does patient have a Living Will: No Does patient have a Durable POA for Healthcare: No
[2024-03-28] MEDS: PNEUMOCOCCAL VACCINE 0.5 ML IMVAC ONE (17:36)
[2024-03-28] MEDS: POTASSIUM CL SA 10 MEQ TAB PO ONE (18:25)
[2024-03-29 05:57] LABS: Absolute Basophils 0.1 K/uL (0-0.5); Absolute Eosinophils 0.2 K/uL (0-0.5); Absolute Lymphocytes (CBC) 2.8 K/uL (0.7-4.9); Absolute Monocytes 1.3 K/uL (0.1-1.3); Absolute Neutrophil 3.5 K/uL (1.8-8.0); Basophils % 1.1 % (0-1.3); Eosinophils % 2.6 % (0-4.4); Hematocrit 39.7 % (39.6-49.0); Hemoglobin 13.1 g/dL (13.6-17.9); Lymphocytes % 35.3 % (15.3-44.8); MCH 30.2 pg (27.0-35.0); MCHC 33.1 g/dL (32.0-36.0); MCV 91.1 fL (80-100); Monocytes % 16.7 % (3.3-12.3); Neutrophils % 44.3 % (41.7-73.7); Platelets 257 thou/uL (152-406); RBC Red Blood Cell Count 4.35 M/uL (4.33-5.43); Red Cell Distribution Width 14.2 % (12.1-15.2)
[2024-03-29 06:00] LABS: Specific Gravity 1.013 (1.005-1.030); Sqamous Epithelial <5 /HPF (None Seen); Urine Bacteria None Seen /HPF (<20); Urine Bilirubin NEGATIVE (Negative); Urine Blood Negative (Negative); Urine Clarity Clear (Clear); Urine Color Light-Yellow (Yellow); Urine Crystals Unidentified Few /HPF (None Seen); Urine Culture Reflex Order NOT NEEDED; Urine Glucose TRACE (Negative); Urine Ketones NEGATIVE (Negative); Urine Microscopic Reflex YN ORDER UMIC; Urine Mucus Slight /HPF (None Seen); Urine Nitrite NEGATIVE (Negative); Urine Protein NEGATIVE (Negative); Urine RBC <5 /HPF (None Seen); Urine Urobilinogen Normal (Normal); Urine WBC <5 /HPF (<5)
[2024-03-29 06:14] LABS: Anion Gap 7.7 mEq/L (5.0-15.0); Magnesium 1.5 mg/dL (1.6-2.4); Phosphorus 1.8 mg/dL (2.5-4.9); Potassium 3.7 mEq/L (3.5-5.1)
[2024-03-29] MEDS: POTASSIUM PHOS IN 0.9 % NACL 15 MMOL/250 ML BAG IV ONE (06:34)
[2024-03-29] MEDS: APIXABAN 2.5 MG TABLET PO SCH (08:20)
[2024-03-29] MEDS: Magnesium Sulfate 2gm IVPB 2 G/50 ML BAG IV ONE (08:20)
[2024-03-29] MEDS ORDERED: ALBUTEROL 2.5 MG/3 ML NEB SOL NEB PRN (16:49)
--- NOTE | 2024-03-29 19:46 | P.PN ---
Subjective Date of Service: 03/29/24 Chief Complaint: BP STAYS LOW Subjective: No C/O voiced HE IS STILL ON LOW DOSE OF LEVOPHED TO KEEP BP AT 90 OR MORE SYSTOLIC. HE HAS NO CHEST PAIN. HE IS A HEAVY SMOKER WITH PVD AND CAD. Review of Systems 10-point ROS is otherwise unremarkable Physical Examination - Vital Signs Temperature: 97.8 F Blood Pressure: 109/90 Pulse: 78 Respirations: 20 Pulse Ox (%): 95 - Physical Exam General: Mild distress HEENT: Atraumatic, PERRLA, EOMI Neck: Supple, JVD not distended Respiratory: Clear to auscultation bilaterally, Normal air movement Cardiovascular: Regular rate/rhythm, Normal S1 S2, Other (BKA FOR PVD.) Gastrointestinal: Normal bowel sounds, No tenderness Musculoskeletal: No tenderness Integumentary: No rashes Neurological: Normal speech, Normal tone, Normal affect Lymphatics: No axilla or inguinal lymphadenopathy - Studies Medications List Reviewed: Yes Assessment And Plan - Current Problems (Diagnosis) (1) Accidental overdose Current Visit: Yes Status: Acute Plan: PLAN IS ABOVE I CALLED DR. BUTLER TO LET HIM KNOW ABOUT OVERUSE OF DRUGS. (2) Hypotension Current Visit: Yes Status: Acute Plan: IV LEVOPHED TAPER IF CAN REMOVE ALL MEDS THAT CAN ADD TO LOW BP CORTISOL LEVEL. NO SIGNS OF SEPSIS NO SIGNS OF CARDIOGENIC SHOCK MOSTLY I BELIEVE IT IS THE PERSISTENCE OF OVERDOSE OF ZANAFLEX. (3) Hypokalemia Current Visit: Yes Status: Acute Plan: PROTOCOL.
[2024-03-30 05:57] LABS: Absolute Basophils 0.1 K/uL (0-0.5); Absolute Eosinophils 0.2 K/uL (0-0.5); Absolute Lymphocytes (CBC) 2.3 K/uL (0.7-4.9); Absolute Neutrophil 3.4 K/uL (1.8-8.0); Basophils % 1.1 % (0-1.3); Eosinophils % 2.5 % (0-4.4); Hematocrit 38.6 % (39.6-49.0); Hemoglobin 13.1 g/dL (13.6-17.9); Lymphocytes % 33.1 % (15.3-44.8); MCH 30.7 pg (27.0-35.0); MCHC 34.1 g/dL (32.0-36.0); MCV 90.1 fL (80-100); MPV 7.8 fL (7.6-11.3); Monocytes % 14.5 % (3.3-12.3); Neutrophils % 48.8 % (41.7-73.7); Nucleated Red Blood Cells % 0.1 % (0-0); Platelets 223 thou/uL (152-406); RBC Red Blood Cell Count 4.28 M/uL (4.33-5.43)
[2024-03-30 06:09] LABS: Anion Gap 7.1 mEq/L (5.0-15.0); Magnesium 1.8 mg/dL (1.6-2.4); Phosphorus 2.3 mg/dL (2.5-4.9); Potassium 4.1 mEq/L (3.5-5.1)
[2024-03-30 08:01] VITALS: O2SAT 96
[2024-03-30] MEDS: MAGNESIUM SULFATE 1 gm IVPB 1 GM/100 ML BAG IV SCH (08:40)
[2024-03-30] MEDS: POTASS/SODIUM PHOSPHATE 1 PKT POWD.PACK PO SCH (08:40)
[2024-03-30 10:17] VITALS: TEMP 98.3
[2024-03-30 10:18] VITALS: BP 114/77
--- NOTE | 2024-03-30 21:15 | CON ---
Date of Consultation: 03/29/2024 Reason For Consultation: Elevated troponin. History Of Present Illness: This is a middle-aged male who does have chronic pain issue on chronic p ain management. He apparently was admitted with an incidental drug overdose and denied having any co mplaints of chest pain or shortness of breath. Troponin was borderline elevated; however, it is tren ding down and the patient has no active cardiac symptoms. I was consulted for elevated troponin. Past Medical History: Hypertension, depression, and chronic back pain. Medications: Refer reconciliation sheet for detailed list. Allergies: NO KNOWN DRUG ALLERGIES. Family History: No premature coronary artery disease or cancer. Social History: He does not smoke or drink. He does not use any drugs. Review of Systems: All systems reviewed and they are negative except mentioned in HPI. Physical Examination: Vital Signs: Reviewed. Head and Neck: Pupils are equal and reactive to light. Intact eye movements. No JVD. No cervical lymphadenopathy. Neck is supple. Thyroid is not enlarged. Lungs: Clear to auscultation bilaterally. Cardiac: Crackles. No accessory muscle use. Heart: Regular rate and rhythm. No extra sounds. Abdomen: Soft, nontender. Bowel sounds positive. No organomegaly. No masses or hernia. No rigidi ty or rebound. Extremities: No edema, clubbing, or cyanosis. Intact pulses. Skin: No rash. No nodes. Neurologic: Alert, awake, and oriented x3. No acute focal deficits appreciated. Investigations: Troponin peaked at 163 and coming down, and the last one was normal at 58. BUN is 9 , creatinine is 0.99, and hemoglobin is 13.1. Assessment And Recommendations: 1.Elevated troponin. This is demand ischemia. No active chest pain. However, with his profound ri sk, I recommend outpatient stress test and an echo, but no further cardiac workup is recommended on a n inpatient basis. 2.Hypertension. Blood pressure is controlled. Continue current management. 3.Accidental overdose. He is stable, managed by Dr. Marcos. 4.Hypokalemia, resolved by potassium replacement. Cardiology will sign off and will be happy to see this patient on outpatient basis for stress test and an echo. SR/MODL Voice ID: [id number] Report ID: [id number]
== END 2024-03-30 10:45 | disposition home or self-care (01) | DRG 917 ==
LOC: ER 19:39 → ERHOLD 23:10 → UNDOADMIN 23:10 → 3RD-ICU 03-28 01:25
PROVIDERS: ADMIT Internal Medicine; ATTEND Internal Medicine
PROC: 3E033XZ Introduction of Vasopressor into Peripheral Vein, Percutaneous Approach (ICD-10-PCS; 2024-03-27)
PROC: 02HV33Z Insertion of Infusion Device into Superior Vena Cava, Percutaneous Approach (ICD-10-PCS; principal; 2024-03-28)
DX: T40.601A Poisoning by unspecified narcotics, accidental (unintentional), initial encounter (principal); R57.0 Cardiogenic shock; R64 Cachexia; I24.89 Other forms of acute ischemic heart disease; E87.6 Hypokalemia; I95.9 Hypotension, unspecified; I10 Essential (primary) hypertension; M13.89 Other specified arthritis, multiple sites; I73.9 Peripheral vascular disease, unspecified; I25.10 Atherosclerotic heart disease of native coronary artery without angina pectoris; T39.1X1A Poisoning by 4-Aminophenol derivatives, accidental (unintentional), initial encounter; F17.210 Nicotine dependence, cigarettes, uncomplicated; Z68.21 Body mass index [BMI] 21.0-21.9, adult; Z79.01 Long term (current) use of anticoagulants; Z79.899 Other long term (current) drug therapy; Z89.512 Acquired absence of left leg below knee; Z86.718 Personal history of other venous thrombosis and embolism
CPT/HCPCS: 36415; 36556; 70450; 71045; 80048; 80076; 80143; 80179; 80307; 81001; 82077; 82533; 82947; 83735; 83880; 84100; 84132; 84484; 85025; 85610; 93005; 94760; 99291; 99292; J0461; J2405; J3475; J3480; J7030; J7060; P9047